=== PATIENT | female | born 1930 | race Caucasian/White ===

== ENCOUNTER 2016-05-25 11:28 | Emergency (ER) | payer MEDICARE, BC, OTHER ==
[2016-05-25 13:35] LABS: Hematocrit 29 % (35-47); Hemoglobin 9.9 g/dl (12.0-16.0); Mean Corpuscular HGB Conc 34 g/dl (31-36); Mean Corpuscular Hemoglobin 32 pg (27-31); Mean Corpuscular Volume 93 fL (80-97); Mean Platelet Volume 8 um3 (7.4-10.4); Red Blood Count 3.15 10^6/ul (4.0-5.4); Red Cell Distribution Width 13 % (10.5-15); White Blood Count 10.5 10^3/ul (3.5-10.8)
[2016-05-25 13:55] LABS: Albumin 3.7 g/dL (3.2-5.2); BUN/Creatinine Ratio 18.4 (8-20); C Reactive Protein 91.74 mg/L (< 5.00); Calcium 9.6 mg/dL (8.6-10.3); EGFR African American 58.4 (>60); EGFR Non-African American 45.4 (>60); Globulin 3.6 g/dL (2-4); Potassium 4.6 mmol/L (3.5-5.0); Total Bilirubin 0.2 mg/dL (0.2-1.0); Total Protein 7.3 g/dL (6.4-8.9)
--- NOTE | 2016-05-25 16:12 | RAD ---
INDICATION: Lower abdominal pain and diarrhea. COMPARISON: November 05, 2013 CT. TECHNIQUE: Multidetector CT images were obtained from the lung bases to the ischial tuberosities. Oral contrast administered. Assessment of the visceral limited without IV contrast. REPORT: Visualized inferior thorax remarkable for mild bibasilar subsegmental atelectasis. Post cholecystectomy. Negative for biliary dilatation. Unremarkable unenhanced liver, pancreas, spleen. Small splenule at the splenic hilum. Unremarkable upper GI and small bowel. The appendix is not visualized. Negative for RIGHT lower quadrant inflammatory change. Enteric contrast extends to the distal sigmoid colon. Mild to moderate colonic diverticulosis primarily at the sigmoid colon without findings of diverticulitis. Negative for ascites, free air, hernias. Normal adrenal glands. Unremarkable RIGHT kidney, ureter, and urinary bladder. Enlarged LEFT kidney with hydroureteronephrosis is traced as far distal as the mid ureter. No obstructing stone evident. 2 cm cystic lesion at the LEFT kidney midpole cortical medullary junction. Mild to moderate LEFT perinephric inflammatory change. Unremarkable uterus and adnexal regions. Enlarged LEFT periaortic lymph nodes at the level of the renal arteries measuring up to 1.4 cm short axis new compared with the prior exam. RIGHT retrocrural lymphadenopathy with dominant 1.7 cm short axis lymph node new compared with the prior exam. Atherosclerotic calcific plaque of the abdominal aorta and iliac arteries without aneurysm. Largely decompressed IVC indicating low volume state. Negative for suspicious osseous lesions. IMPRESSION: 1. Enlarged LEFT kidney with probable hydronephrosis and 2 cm cystic lesion at the mid pole cortical medullary junction. Given associated perienteric inflammatory change correlate with clinical assessment to exclude pyelonephritis. No visualized obstructing stone or focal lesion. The CT appearance is nonspecific and the differential includes obstructive uropathy with pyelonephritis. Pyelonephritis without mechanical obstruction, renal vein thrombosis, and tumor. Consider ultrasound including assessment of the LEFT ureteral jet or contrast-enhanced renal mass protocol CT for further assessment. 2. Retroperitoneal lymphadenopathy including LEFT periaortic at the level of the LEFT renal artery and RIGHT retrocrural. 3. Colonic diverticulosis primarily at the sigmoid colon without findings of diverticulitis.
[2016-05-25] MEDS ORDERED: NS 0.9% 1000 ML* 1,000 ML IV ONE (17:32)
--- NOTE | 2016-05-25 19:56 | RAD ---
Indication: Assess for LEFT hydronephrosis and ureteral jet. Comparison: May 25, 2016 CT. Technique: Bilateral renal ultrasound and limited ultrasound of the urinary bladder to assess for ureteral jets. Report: 9.3 x 3.9 x 4.7 cm RIGHT kidney demonstrates normal cortical echogenicity. No visualized stones, hydronephrosis, or focal lesions. RIGHT ureteral jet documented at the urinary bladder. 10.6 x 5.2 x 5.1 cm mildly enlarged LEFT kidney demonstrates normal cortical echogenicity. Moderate pelvicaliectasis. No visualized stones or focal renal lesions. Negative for perinephric fluid. No LEFT ureteral jet visualized at the urinary bladder over the course of several minutes. IMPRESSION: Mildly enlarged LEFT kidney with moderate pelvicaliectasis and absence of the ureteral jet confirming hydronephrosis.
[2016-05-25 20:17] LABS: Urine Bilirubin Negative (Negative); Urine Glucose Negative (Negative); Urine Nitrite Negative (Negative)
[2016-05-25] MEDS ORDERED: Aspirin TAB* 325 MG PO ONE (21:03)
[2016-05-25] MEDS ORDERED: Ondansetron INJ* 2 MG/ML VIAL IV ONE (21:50)
[2016-05-25] MEDS ORDERED: Morphine INJ* 4 MG/ML 1 ML CARPUJECT IV ONE (21:50)
--- NOTE | 2016-05-25 21:57 | ED ---
Memo Corbin Janilya, scribed for Ramesh Kamara MD on 05/25/16 at 1244 . Abdominal Pain/Female - HPI Summary HPI Summary: An 85 y/o female came in to [facility] presenting w/ a gradual onset of constant LLQ abd pain for about a month. The pain does not radiate. She has CT scan and endoscopy scheduled next week, however, the pain has progressively increased in the past few days, hence her visit to the hospital today. Pt reports she has been losing weight, feeling weaker, having low appetite in addition to nausea, intermittent diarrhea, mild back pain. She also states she has constant achy feeling on the right lower jaw and neck; pt is unsure whether this is due to sleeping in a compromising position. Pt denies diaphoresis, urinary Sx. 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 PSHx gallbladder removal, no appendectomy. - History of Current Complaint Stated Complaint: ABD PAIN/BACK PAIN Hx Obtained From: Patient Onset/Duration: Gradual Onset, Lasting Weeks, Still Present Timing: Constant Severity Initially: Moderate Severity Currently: Moderate Pain Intensity: 6 Pain Scale Used: 0-10 Numeric Location: Discrete At: LLQ Radiates: No Aggravating Factor(s): Nothing Alleviating Factor(s): Nothing Associated Signs and Symptoms: Positive: Back Pain, Decreased Appetite, Diarrhea. Negative: Urinary Symptoms, Nausea, Vomiting Allergies/Adverse Reactions: Allergies Allergy/AdvReac Type Severity Reaction Status Date / Time Iodine Allergy Severe Anaphylatic Verified 05/25/16 11:39 Shock PMH/Surg Hx/FS Hx/Imm Hx Previously Healthy: Yes Endocrine/Hematology History: Reports: Hx Diabetes - TYPE 2, Hx Thyroid Disease Cardiovascular History: Reports: Hx Coronary Artery Disease, Hx Hypercholesterolemia - HDL, Hx Hypertension, Other Cardiovascular Problems/ Disorders - CARDIAC CATH 2010, CAROTID ENDARTERECTOMY Denies: Hx Angina, Hx Myocardial Infarction, Hx Valvular Heart Disease Respiratory History: Denies: Hx Asthma, Hx Chronic Obstructive Pulmonary Disease (COPD) GI History: Denies: Hx Ulcer - Cancer History Hx Chemotherapy: No Hx Radiation Therapy: No - Surgical History Surgery Procedure, Year, and Place: carotid artery cleared; GB removed; 2 cardiac caths Hx Anesthesia Reactions: No Infectious Disease History: No Infectious Disease History: Reports: Hx Shingles - a while ago Denies: Hx Clostridium Difficile, Hx Hepatitis, Hx Human Immunodeficiency Virus (HIV), Hx of Known/Suspected MRSA, Hx Tuberculosis, Hx Known/Suspected VRE , Hx Known/Suspected VRSA, History Other Infectious Disease, Traveled Outside the [place] in Last 30 Days - Family History Known Family History: Positive: Other - No abd issues - Social History Occupation: Retired Alcohol Use: None Substance Use Type: Reports: None Smoking Status (MU): Never Smoked Tobacco Review of Systems Positive: Fatigue. Negative: Fever, Chills Negative: Erythema Negative: Sore Throat Negative: Chest Pain Negative: Shortness Of Breath, Cough Positive: Abdominal Pain, Diarrhea, Nausea. Negative: Vomiting Negative: dysuria, hematuria Positive: Arthralgia - mild back pain, right jaw and neck pain, Myalgia - mild back pain, right jaw and neck pain. Negative: Edema Negative: Rash Neurological: Negative - pt denies dizziness All Other Systems Reviewed And Are Negative: Yes Physical Exam - Summary Physical Exam Summary: Constitutional: Well-developed, Well-nourished, Alert. (-) Distressed Skin: Warm, Dry HENT: Normocephalic; Atraumatic Eyes: Conjunctiva normal Neck: Musculoskeletal ROM normal neck. (-) JVD, (-) Stridor, (-) Tracheal deviation Cardio: Rhythm regular, rate normal, Heart sounds normal; Intact distal pulses; The pedal pulses are 2+ and symmetric. Radial pulses are 2+ and symmetric. (-) Murmur Pulmonary/Chest wall: Effort normal. (-) Respiratory distress, (-) Wheezes, (-) Rales Abd: Soft, (-) Tenderness, (-) Distension, (-) Guarding, (-) Rebound Musculoskeletal: (-) Edema Lymph: (-) Cervical adenopathy Neuro: Alert, Oriented x3 Psych: Mood and affect Normal Triage Information Reviewed: Yes Vital Signs On Initial Exam: Initial Vitals Temp Pulse Resp BP Pulse Ox 97.4 F 68 17 124/54 98 05/25/16 12:21 05/25/16 12:21 05/25/16 12:21 05/25/16 12:21 05/25/16 12:21 Vital Signs Reviewed: Yes Diagnostics - Vital Signs Vital Signs Temp Pulse Resp BP Pulse Ox 05/25/16 12:21 97.4 F 68 17 124/54 98 - Laboratory Lab Results: Lab Results 05/25/16 05/25/16 05/25/16 Range/Units 13:21 13:21 13:21 WBC 10.5 (3.5-10.8) 10^3/ul RBC 3.15 L (4.0-5.4) 10^6/ul Hgb 9.9 L (12.0-16.0) g/dl Hct 29 L (35-47) % MCV 93 (80-97) fL MCH 32 H (27-31) pg MCHC 34 (31-36) g/dl RDW 13 (10.5-15) % Plt Count 447 (150-450) 10^3/ul MPV 8 (7.4-10.4) um3 Neut % (Auto) 71.1 (38-83) % Lymph % (Auto) 19.2 L (25-47) % [place] % (Auto) 7.6 (1-9) % Eos % (Auto) 1.3 (0-6) % Baso % (Auto) 0.8 (0-2) % Absolute Neuts (auto) 7.5 (1.5-7.7) 10^3/ul Absolute Lymphs (auto) 2.0 (1.0-4.8) 10^3/ul Absolute Monos (auto) 0.8 (0-0.8) 10^3/ul Absolute Eos (auto) 0.1 (0-0.6) 10^3/ul Absolute Basos (auto) 0.1 (0-0.2) 10^3/ul Absolute Nucleated RBC 0 10^3/ul Nucleated RBC % 0 Sodium 134 (133-145) mmol/L Potassium 4.6 (3.5-5.0) mmol/L Chloride 101 (101-111) mmol/L Carbon Dioxide 23 (22-32) mmol/L Anion Gap 10 (2-11) mmol/L BUN 21 (6-24) mg/dL Creatinine 1.14 H (0.51-0.95) mg/dL Est GFR ( Amer) 58.4 (>60) Est GFR (Non-Af Amer) 45.4 (>60) BUN/Creatinine Ratio 18.4 (8-20) Glucose 134 H (70-100) mg/dL POC Glucose (mg/dL) (74-106) mg/dL Lactic Acid 1.2 (0.5-2.0) mmol/L Calcium 9.6 (8.6-10.3) mg/dL Total Bilirubin 0.20 (0.2-1.0) mg/dL AST 14 (13-39) U/L ALT 7 (7-52) U/L Alkaline Phosphatase 157 H (34-104) U/L Troponin I 0.00 (<0.04) ng/mL C-Reactive Protein 91.74 H (< 5.00) mg/L Total Protein 7.3 (6.4-8.9) g/dL Albumin 3.7 (3.2-5.2) g/dL Globulin 3.6 (2-4) g/dL Albumin/Globulin Ratio 1.0 (1-3) Lipase 40 (11.0-82.0) U/L Urine Color Urine Appearance Urine pH (5-9) Ur Specific [place] (1.010-1.030) Urine Protein (Negative) Urine Ketones (Negative) Urine Blood (Negative) Urine Nitrate (Negative) Urine Bilirubin (Negative) Urine Urobilinogen (Negative) Ur Leukocyte Esterase (Negative) Urine Glucose (Negative) Urine Ascorbic Acid (Negative) 05/25/16 05/25/16 05/25/16 Range/Units 13:27 18:34 20:00 WBC (3.5-10.8) 10^3/ul RBC (4.0-5.4) 10^6/ul Hgb (12.0-16.0) g/dl Hct (35-47) % MCV (80-97) fL MCH (27-31) pg MCHC (31-36) g/dl RDW (10.5-15) % Plt Count (150-450) 10^3/ul MPV (7.4-10.4) um3 Neut % (Auto) (38-83) % Lymph % (Auto) (25-47) % [place] % (Auto) (1-9) % Eos % (Auto) (0-6) % Baso % (Auto) (0-2) % Absolute Neuts (auto) (1.5-7.7) 10^3/ul Absolute Lymphs (auto) (1.0-4.8) 10^3/ul Absolute Monos (auto) (0-0.8) 10^3/ul Absolute Eos (auto) (0-0.6) 10^3/ul Absolute Basos (auto) (0-0.2) 10^3/ul Absolute Nucleated RBC 10^3/ul Nucleated RBC % Sodium (133-145) mmol/L Potassium (3.5-5.0) mmol/L Chloride (101-111) mmol/L Carbon Dioxide (22-32) mmol/L Anion Gap (2-11) mmol/L BUN (6-24) mg/dL Creatinine (0.51-0.95) mg/dL Est GFR ( Amer) (>60) Est GFR (Non-Af Amer) (>60) BUN/Creatinine Ratio (8-20) Glucose (70-100) mg/dL POC Glucose (mg/dL) 145 H (74-106) mg/dL Lactic Acid 1.5 (0.5-2.0) mmol/L Calcium (8.6-10.3) mg/dL Total Bilirubin (0.2-1.0) mg/dL AST (13-39) U/L ALT (7-52) U/L Alkaline Phosphatase (34-104) U/L Troponin I (<0.04) ng/mL C-Reactive Protein (< 5.00) mg/L Total Protein (6.4-8.9) g/dL Albumin (3.2-5.2) g/dL Globulin (2-4) g/dL Albumin/Globulin Ratio (1-3) Lipase (11.0-82.0) U/L Urine Color Yellow Urine Appearance Clear Urine pH 5.0 (5-9) Ur Specific [place] 1.009 L (1.010-1.030) Urine Protein Negative (Negative) Urine Ketones Negative (Negative) Urine Blood Negative (Negative) Urine Nitrate Negative (Negative) Urine Bilirubin Negative (Negative) Urine Urobilinogen Negative (Negative) Ur Leukocyte Esterase Negative (Negative) Urine Glucose Negative (Negative) Urine Ascorbic Acid * H (Negative) Result Diagrams: 05/25/16 13:21 05/25/16 13:21 Lab Statement: Any lab studies that have been ordered have been reviewed, and results considered in the medical decision making process. - CT abd/pel CT Interpretation: Positive (See Comments) - IMPRESSION: 1. Enlarged LEFT kidney with probable hydronephrosis and 2 cm cystic lesion at the mid pole cortical medullary junction. Given associated perienteric inflammatory change correlate with clinical assessment to exclude pyelonephritis. No visualized obstructing stone or focal lesion. The CT appearance is nonspecific and the differential includes obstructive uropathy with pyelonephritis. Pyelonephritis without mechanical obstruction, renal vein thrombosis, and tumor. Consider ultrasound including assessment of the LEFT ureteral jet or contrast-enhanced renal mass protocol CT for further assessment. 2. Retroperitoneal lymphadenopathy including LEFT periaortic at the level of the LEFT renal artery and RIGHT retrocrural. 3. Colonic diverticulosis primarily at the sigmoid colon without findings of diverticulitis. CT Interpretation Completed By: Radiologist - EKG 1254 Cardiac Rate: NL - 64 bpm EKG Rhythm: Sinus Rhythm EKG Interpretation: No STEMI Re-Evaluation - Re-Evaluation First Eval Re-Evaluation Time: 21:55 - notified of need for transfer, pain 5/5 LLQ Comment: No urology available at [facility], transferred to [facility], direct admission to telemetry, urology eval for obstructive uropathy, also jaw pain in setting of diabetes, rule out TX. EKG, trop neg x 1 Abdominal Pain Fem Course/Dx - Course Course Of Treatment: An 85-year-old female presents to the ED with a CC of abd pain for about a month. Pt is diabetic and anemic. Pt states she has been losing weight and having low appetite. She has endoscopy scheduled for next week. However, the pain has been worsening, hence her visit today. CT abd/pel shows enlarged left kidney. Pt is agreeable with this plan. - Diagnoses Provider Diagnoses: Obstructive uropathy, Jaw pain, Angina at rest - Provider Notifications Discussed Care Of Patient With: Chris (accessibility lift technician) at lab: stool guiaic test is negative. Discharge - Discharge Plan Condition: Good Disposition: TRANS HIGHER LVL OF CARE FAC Referrals: Kevin Burkett MD [Primary Care Provider] - The documentation as recorded by the Memo mcdaniels Janilya accurately reflects the service I personally performed and the decisions made by me, Ramesh Kamara MD.
[2016-05-25 22:05] VITALS: BP 145/61
== END 2016-05-25 22:04 | disposition short-term general hospital (02) ==
LOC: ED 11:28
DX: M54.9 Dorsalgia, unspecified (principal); R19.7 Diarrhea, unspecified; R10.32 Left lower quadrant pain; R53.83 Other fatigue
CPT/HCPCS: 36415; 74176; 76775; 80053; 81003; 82272; 83605; 83690; 84484; 85025; 86140; 87040; 93005; 96374; 96375; 99283; J2270; J2405

== ENCOUNTER 2016-08-28 12:19 | Emergency (ER) | payer MEDICARE, BC ==
[2016-08-28] MEDS ORDERED: Ondansetron ODT TAB* 4 MG PO ONE (13:50)
[2016-08-28 14:09] VITALS: BP 142/69
--- NOTE | 2016-09-10 13:29 | UC ---
anny Corbin Timothy, scribed for Mel Moody MD on 08/28/16 at 1303 . Abdominal Pain Female HPI - History of Current Complaint Stated Complaint: ABDOMINAL COMPLAINT Time Seen by Provider: 08/28/16 13:00 Hx Obtained From: Patient Onset/Duration: Gradual Onset, Lasting Days, Still Present Timing: Intermittent Episodes Lasting: Severity Initially: Moderate Severity Currently: Moderate Pain Intensity: 2 Pain Scale Used: 0-10 Numeric Location: Diffuse Radiates: No Allergies/Adverse Reactions: Allergies Allergy/AdvReac Type Severity Reaction Status Date / Time Iodine Allergy Severe Anaphylatic Verified 05/25/16 11:39 Shock Home Medications: Home Medications Escitalopram (NF) [Lexapro 5 mg (NF)] 5 mg PO DAILY 08/28/16 [History Confirmed 08/28/16] Omeprazole CAP* [Prilosec CAP* 20 MG] 20 mg PO DAILY 08/28/16 [History Confirmed 08/28/16] Ondansetron TAB* [Zofran 4 MG Tab*] 4 mg PO Q8HR PRN 08/28/16 [History Confirmed 08/28/16] PMH/Surg Hx/FS Hx/Imm Hx - Additional Past Medical History Additional PMH: shingles Previously Healthy: No - treated for bladder cancer and recent chemo Endocrine History: Diabetes - II, Thyroid Disease Cardiovascular History: Cardiac Disease, Other - blocked artery, cardiac catheterization x2, HLD, HTN Other Cardiovascular History: Coronary artery disease GI/ History: Other - bladder CA Other GI/ History: bladder cancer Cancer History: Other - Bladder CA Other Cancer History: bladder cancer - Surgical History Surgical History: Yes Surgery Procedure, Year, and Place: carotid artery cleared; GB removed; 2 cardiac caths - Family History Known Family History: Positive: Cardiac Disease, Hypertension, Diabetes, Other - No abd issues - Social History Alcohol Use: None Substance Use Type: None Smoking Status (MU): Never Smoked Tobacco - Immunization History Most Recent Influenza Vaccination: 2011 & REFUSES, STATES WILL GET OUTPATIENT Most Recent Tetanus Shot: UNSURE Most Recent Pneumonia Vaccination: HAS HAD, UNSURE DATE Review of Systems Constitutional: Fatigue Skin: Negative Eyes: Negative ENT: Nasal Discharge Respiratory: Shortness Of Breath Cardiovascular: Negative Gastrointestinal: Abdominal Pain, Other - nausea Genitourinary: Negative Motor: Negative Neurovascular: Negative Musculoskeletal: Negative Neurological: Other - dizziness Psychological: Negative All Other Systems Reviewed And Are Negative: Yes Physical Exam Triage Information Reviewed: Yes Vital Signs: Initial Vital Signs Temp 97.6 F 08/28/16 12:40 Pulse 69 08/28/16 12:40 Resp 22 08/28/16 12:40 BP 128/72 08/28/16 12:40 Pulse Ox 84 08/28/16 12:40 Vital Signs Reviewed: Yes - Additional Comments Constitutional: Pt is awake, A&Ox3, in no acute distress,and cooperative. She is pale. HENT: pale conjunctiva bilaterally. Pinguecula on the left. Throat: pink, nonpurulent. TM's and canals normal. Neck: supple, no JVD in upright position Respiratory: Lungs CTA bilaterally Cardiovascular: RRR, no murmur. There is a port on the right upper chest. Abd: soft, nontender, no masses, no organomegaly, Bowel Sounds: present and normal Musculoskeletal: Full ROM, pale extremities, good tone, power 5/5 in all extremities Neuro: AOx3, cooperative, coherent Skin: pale, good turgor Abd Pain Female Course/Dx - Course Course Of Treatment: Berenice Rush is an 85 yo female presenting to [facility] with 2/ 10 diffuse abd pain, nausea, SOB and fatigue since her last chemotherapy appointment 08/23/16. In the urgent care course she received 2L O2 due to O2 sats 87. Pt was counseled that she should be transferred to a hospital by ambulance due to her low O2 sats and possible anemia. Pt is agreeable to this course of Tx. After clinical examination as well as discussion with Adelita (RN [facility]), she will be transferred to [facility] by ambulance. - Differential Dx/Diagnosis Provider Diagnoses: dyspnea, hypoxia, hyperglycemia - Physician Notification/Consults Discussed Care of Patient With: adelita - nurse [facility] Time Discussed With Above Provider: 13:12 Discharge - Discharge Plan Condition: Stable Disposition: TRANS HIGHER LVL OF CARE FAC Discharge Disposition Comment: transferred to [facility] for risks with low O2 sats and possible anemia Referrals: Kevin Burkett MD [Primary Care Provider] - The documentation as recorded by the anny mcdaniels Timothy accurately reflects the service I personally performed and the decisions made by , Mel Moody MD.
== END 2016-08-28 14:02 | disposition short-term general hospital (02) ==
LOC: UCEAST 12:19
DX: R10.9 Unspecified abdominal pain (principal); R06.00 Dyspnea, unspecified; R09.02 Hypoxemia; E11.65 Type 2 diabetes mellitus with hyperglycemia; E07.9 Disorder of thyroid, unspecified; E78.5 Hyperlipidemia, unspecified; I51.9 Heart disease, unspecified; I10 Essential (primary) hypertension; I25.10 Atherosclerotic heart disease of native coronary artery without angina pectoris
CPT/HCPCS: 99213; A9270-GY; G0463

== ENCOUNTER 2016-08-28 14:18 | Inpatient (IN) | payer MEDICARE, BC ==
[2016-08-28 14:38] LABS: Hematocrit 25 % (35-47); Hemoglobin 7.6 g/dl (12.0-16.0); Mean Corpuscular HGB Conc 31 g/dl (31-36); Mean Corpuscular Hemoglobin 31 pg (27-31); Mean Corpuscular Volume 102 fL (80-97); Mean Platelet Volume 9 um3 (7.4-10.4); Red Blood Count 2.43 10^6/ul (4.0-5.4); Red Cell Distribution Width 27 % (10.5-15); White Blood Count 77.4 10^3/ul (3.5-10.8)
[2016-08-28 14:39] LABS: Comments Flag Yes
[2016-08-28 14:40] LABS: Add Diff/Slide Review? Manual Diff Added
--- NOTE | 2016-08-28 14:56 | RAD ---
INDICATION: Weakness. COMPARISON: Comparison is made with a prior chest x-ray study from December 22, 2012. TECHNIQUE: A portable view of the chest was obtained. FINDINGS: There is a central venous catheter present on the right side. The catheter tip projects over the right atrium. The heart is within normal limits in size. There is mild diffuse prominence of the interstitial markings. There is a moderate size right and a small left pleural effusion. IMPRESSION: BILATERAL PLEURAL EFFUSIONS RIGHT GREATER THAN LEFT.
[2016-08-28 15:03] LABS: Albumin 3.8 g/dL (3.2-5.2); BUN/Creatinine Ratio 19.7 (8-20); C Reactive Protein 57.89 mg/L (< 5.00); Calcium 8.7 mg/dL (8.6-10.3); EGFR African American 45.3 (>60); EGFR Non-African American 35.2 (>60); Globulin 2.9 g/dL (2-4); Total Bilirubin 0.7 mg/dL (0.2-1.0); Total Protein 6.7 g/dL (6.4-8.9)
[2016-08-28 15:09] LABS: Add Path Review? YES; Hypochromasia 2+; Immature Granulocytes 21 % (0-9); Macrocytosis 2+; Metamyelocytes % 1 % (0-2); Myelocytes % 5 % (0-1); Neutrophil % 68 % (38-83); Polychromasia 2+; Troponin I 0.04 ng/mL (<0.04)
[2016-08-28] MEDS ORDERED: Ondansetron INJ* 2 MG/ML VIAL IV ONE (15:58)
[2016-08-28 17:10] LABS: Magnesium 1.7 mg/dL (1.9-2.7); Potassium 5.8 mmol/L (3.5-5.0)
[2016-08-28] MEDS ORDERED: Acetaminophen TAB* 325 MG PO ONE (18:12)
--- NOTE | 2016-08-28 19:37 | RAD ---
INDICATION: Shortness of breath. History of bladder cancer with metastasis to the liver, back, lymph nodes. COMPARISON: May 25, [address] November 05, [address] TECHNIQUE: Multidetector CT images were obtained from the lung apices to the ischial tuberosities without contrast. Assessment of the viscera limited without contrast. CHEST REPORT: Moderate RIGHT and small to moderate LEFT dependent pleural effusions with proportional compressive atelectasis greatest at the lower lobes. Additionally there is consolidation at the RIGHT middle lobe and medial and anterior basal segment of the RIGHT lower lobe with air bronchograms concerning for potential pneumonia. 1.1 x 0.4 cm lesion at the apex of the RIGHT lung is new compared with the prior exam. Tip of RIGHT chest port at level of the RIGHT atrium. Negative for cardiomegaly or pericardial effusion. Coronary artery calcifications. 0.8 cm short axis RIGHT pretracheal lymph node is mildly increased. 1.0 cm short axis precarinal lymph node is unchanged. 1.6 cm short axis RIGHT retrocrural lymph node is grossly unchanged compared with the May 25, 2016 exam. LEFT axillary adenopathy with dominant 1.5 cm short axis node is new. 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 Negative for paravertebral hematoma. Additional dominant osteoblastic metastasis at the manubrium measuring up to 1.4 cm maximum dimension and new compared with the prior exam. CHEST IMPRESSION: 1. New polyostotic bone metastasis compared with the [address] Associated pathologic fracture at T6 without resulting central canal stenosis. 2. Thoracic lymphadenopathy significantly increased over the 2014 exam with new enlarged nodes at the LEFT axilla. No significant change in dominant RIGHT retrocrural lymph node compared with the May 25, [address] 3. RIGHT larger than LEFT bilateral pleural effusions are new compared with the May 25, 2006 CT and may be malignant. 4. 1.1 cm maximum dimension RIGHT upper lobe pulmonary nodule new compared with the 2014 exam. ABDOMEN PELVIS REPORT: Limited assessment of the liver without IV contrast. 1.4 cm hypodense lesion at the dome of the RIGHT anterior hepatic segment is increased from 0.8 cm previously. 1.6 cm hypodense lesion at the RIGHT hepatic lobe inferiorly reference image 63 is increased from 0.9 cm previously. 1.4 cm hypodense lesion at the subcapsular RIGHT posterior hepatic segment reference image 63 is increased from 1.0 cm previously. Post cholecystectomy. Negative for biliary dilatation. Unremarkable pancreas. Upper normal spleen size. Splenule approximating the inferior medial margin of the spleen. Negative for CT abnormality of the upper GI or small bowel. The appendix is not visualized. Severe colonic diverticulosis without findings of diverticulitis. Small pelvic ascites. Negative for free air or hernias. Normal adrenal glands. 1.8 cm cyst at the midpole of the LEFT kidney. Negative for hydronephrosis. Negative for ureteral dilatation. Largely decompressed urinary bladder without gross abnormality. Unremarkable anteverted uterus and adnexal regions. Infrarenal LEFT periaortic lymphadenopathy measuring up to 2.0 x 1.7 cm without gross change. Negative for aortoiliac aneurysm. Extensive arterial calcific plaque. Polyostotic small osteoblastic bone metastasis with brewery representative 0.8 cm lesion at the L5 vertebral body reference the lateral view with interval increase in size from 0.4 cm previously. Negative for pathologic compression fractures. ABDOMEN PELVIS IMPRESSION: 1. While assessment is limited without IV contrast there is suggestion of significant progression of hepatic metastasis compared with the May 25, 2016 CT. 2. No significant change in retroperitoneal lymphadenopathy. 3. Progression of polyostotic small osteoblastic bone metastasis.
[2016-08-28] MEDS ORDERED: Dextrose 50% Syringe 50 ML* 25 GM/50 ML SYRINGE IV PUSH PRN (20:03)
[2016-08-28] MEDS ORDERED: Morphine INJ* 2 MG/ML 1 ML SYRINGE IV ONE (21:48)
--- NOTE | 2016-08-28 22:21 | ED ---
Dipesh Corbin Alfonso, scribed for Boo Malin MD on 08/28/16 at 1514 . Complex/Multi-Sys Presentation - HPI Summary HPI Summary: This patient is an 85 year old female BIB[facility] c/o SOB since earlier today. She reports generalized weakness, loss of appetite, nausea, and rhinorrhea over the last few days. She has had insomnia and her sleep pattern has changed. She denies diarrhea. Symptoms aggravated and alleviated by nothing. Her last normal BM was this morning. She has stage 4 bladder cancer that is being managed at [facility]. - History Of Current Complaint Time Seen by Provider: 08/28/16 14:35 Hx Obtained From: Patient, Family/Sourcing Intern - Son Onset/Duration: Sudden Onset, Lasting Hours - Earlier today, Still Present Timing: Constant Severity Currently: Mild Severity Initially: Mild Aggravating Factor(s): Nothing Alleviating Factor(s): Nothing Associated Signs And Symptoms: Positive: Weakness - Generalized, SOB - Since earlier today, Nausea, Other - Positive loss of appetite, rhinorrhea, and insomnia. Negative: Diarrhea - Allergies/Home Medications Allergies/Adverse Reactions: Allergies Allergy/AdvReac Type Severity Reaction Status Date / Time Iodine Allergy Severe Anaphylatic Verified 05/25/16 11:39 Shock PMH/Surg Hx/FS Hx/Imm Hx Endocrine/Hematology History: Reports: Hx Diabetes - TYPE 2, Hx Thyroid Disease Cardiovascular History: Reports: Hx Coronary Artery Disease, Hx Hypercholesterolemia - HDL, Hx Hypertension, Other Cardiovascular Problems/ Disorders - CARDIAC CATH 2010, CAROTID ENDARTERECTOMY Denies: Hx Angina, Hx Myocardial Infarction, Hx Valvular Heart Disease Respiratory History: Denies: Hx Asthma, Hx Chronic Obstructive Pulmonary Disease (COPD) GI History: Denies: Hx Ulcer History: Denies: Hx Renal Disease - Cancer History Cancer Type, Location and Year: 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, back, lymph nodes Hx Chemotherapy: No Hx Radiation Therapy: No - Surgical History Surgery Procedure, Year, and Place: carotid artery cleared; GB removed; 2 cardiac caths, mediaport rt chest Hx Anesthesia Reactions: No Infectious Disease History: Reports: Hx Shingles - a while ago Denies: Hx Clostridium Difficile, Hx Hepatitis, Hx Human Immunodeficiency Virus (HIV), Hx of Known/Suspected MRSA, Hx Tuberculosis, Hx Known/Suspected VRE , Hx Known/Suspected VRSA, History Other Infectious Disease, Traveled Outside the [place] in Last 30 Days - Family History Known Family History: Positive: Other - No abd issues - Social History Alcohol Use: None Substance Use Type: Reports: None Smoking Status (MU): Never Smoked Tobacco Review of Systems Positive: Other - Rhinorrhea since a few days ago Positive: Shortness Of Breath - Since earlier today Positive: Nausea - Since a few days ago, Other - Positive loss of appetite since a few days ago. Negative: Diarrhea Neurological: Other - Insomnia Positive: Weakness - Generalized since a few days ago All Other Systems Reviewed And Are Negative: Yes Physical Exam - Summary Physical Exam Summary: Gen: well-appearing, no pain distress Skin: Pale Head: normal Eyes: EOMI, GADIEL ENT: normal Neck: supple, nontender Resp: CTA, breath sounds present Cardio: RRR Abd: soft, nontender Bowel: present Musc: normal, strength/ROM intact Neuro: normal, sensory/motor intact, A&O x3 Psych: affect/mood appropriate Triage Information Reviewed: Yes Vital Signs On Initial Exam: Initial Vitals Temp Pulse Resp BP Pulse Ox 98.5 F 70 26 160/57 92 08/28/16 16:03 08/28/16 16:03 08/28/16 16:03 08/28/16 16:03 08/28/16 16:03 Vital Signs Reviewed: Yes Diagnostics - Vital Signs Vital Signs Temp Pulse Resp BP Pulse Ox 08/28/16 20:30 98.4 F 74 20 154/73 92 08/28/16 20:28 72 28 154/73 90 08/28/16 20:00 69 27 91 08/28/16 19:21 70 25 90 08/28/16 18:30 67 22 130/51 89 08/28/16 18:20 68 24 90 08/28/16 18:03 98.9 F 139/54 90 08/28/16 16:03 98.5 F 70 26 160/57 92 - Laboratory Lab Results: Lab Results 08/28/16 08/28/16 08/28/16 Range/Units 12:45 12:45 12:45 WBC 77.4 H (3.5-10.8) 10^3/ul RBC 2.43 L (4.0-5.4) 10^6/ul Hgb 7.6 L (12.0-16.0) g/dl Hct 25 L (35-47) % MCV 102 H (80-97) fL MCH 31 (27-31) pg MCHC 31 (31-36) g/dl RDW 27 H (10.5-15) % Plt Count 204 (150-450) 10^3/ul MPV 9 (7.4-10.4) um3 Absolute Neuts (auto) 72.1 H (1.5-7.7) 10^3/ul Absolute Lymphs (auto) 2.2 (1.0-4.8) 10^3/ul Absolute Monos (auto) 2.8 H (0-0.8) 10^3/ul Absolute Eos (auto) 0 (0-0.6) 10^3/ul Absolute Basos (auto) 0.2 (0-0.2) 10^3/ul Absolute Nucleated RBC 0.05 10^3/ul Neutrophils % Pending Normal RBC Morphology Pending INR (Anticoag Therapy) 1.05 (0.89-1.11) APTT 25.7 L (26.0-36.3) seconds Sodium 132 L (133-145) mmol/L Potassium Pending Chloride 103 (101-111) mmol/L Carbon Dioxide 21 L (22-32) mmol/L Anion Gap Pending BUN 28 H (6-24) mg/dL Creatinine 1.42 H (0.51-0.95) mg/dL Est GFR ( Amer) 45.3 (>60) Est GFR (Non-Af Amer) 35.2 (>60) BUN/Creatinine Ratio 19.7 (8-20) Glucose 265 H (70-100) mg/dL Calcium 8.7 (8.6-10.3) mg/dL Magnesium Pending Total Bilirubin 0.70 (0.2-1.0) mg/dL AST Pending ALT 36 (7-52) U/L Alkaline Phosphatase 296 H (34-104) U/L Total Creatine Kinase 54 (10-223) U/L CK-MB (CK-2) 5.3 (0.6-6.3) ng/mL Troponin I Pending C-Reactive Protein 57.89 H (< 5.00) mg/L B-Natriuretic Peptide ( - 100) pg/mL Total Protein 6.7 (6.4-8.9) g/dL Albumin 3.8 (3.2-5.2) g/dL Globulin 2.9 (2-4) g/dL Albumin/Globulin Ratio 1.3 (1-3) Lipase 40 (11.0-82.0) U/L TSH 17.00 H (0.34-5.60) mcIU/mL 08/28/16 Range/Units 12:45 WBC (3.5-10.8) 10^3/ul RBC (4.0-5.4) 10^6/ul Hgb (12.0-16.0) g/dl Hct (35-47) % MCV (80-97) fL MCH (27-31) pg MCHC (31-36) g/dl RDW (10.5-15) % Plt Count (150-450) 10^3/ul MPV (7.4-10.4) um3 Absolute Neuts (auto) (1.5-7.7) 10^3/ul Absolute Lymphs (auto) (1.0-4.8) 10^3/ul Absolute Monos (auto) (0-0.8) 10^3/ul Absolute Eos (auto) (0-0.6) 10^3/ul Absolute Basos (auto) (0-0.2) 10^3/ul Absolute Nucleated RBC 10^3/ul Neutrophils % Normal RBC Morphology INR (Anticoag Therapy) (0.89-1.11) APTT (26.0-36.3) seconds Sodium (133-145) mmol/L Potassium Chloride (101-111) mmol/L Carbon Dioxide (22-32) mmol/L Anion Gap BUN (6-24) mg/dL Creatinine (0.51-0.95) mg/dL Est GFR ( Amer) (>60) Est GFR (Non-Af Amer) (>60) BUN/Creatinine Ratio (8-20) Glucose (70-100) mg/dL Calcium (8.6-10.3) mg/dL Magnesium Total Bilirubin (0.2-1.0) mg/dL AST ALT (7-52) U/L Alkaline Phosphatase (34-104) U/L Total Creatine Kinase (10-223) U/L CK-MB (CK-2) (0.6-6.3) ng/mL Troponin I C-Reactive Protein (< 5.00) mg/L B-Natriuretic Peptide 1137 H ( - 100) pg/mL Total Protein (6.4-8.9) g/dL Albumin (3.2-5.2) g/dL Globulin (2-4) g/dL Albumin/Globulin Ratio (1-3) Lipase (11.0-82.0) U/L TSH (0.34-5.60) mcIU/mL Result Diagrams: 08/28/16 12:45 08/28/16 12:45 Lab Statement: Any lab studies that have been ordered have been reviewed, and results considered in the medical decision making process. - Radiology CXR Xray Interpretation: Positive (See Comments) - BILATERAL PLEURAL EFFUSIONS RIGHT GREATER THAN LEFT. Radiology Interpretation Completed By: Radiologist - EKG 1602 EKG Rhythm: Sinus Rhythm - BPM 71 Ectopy: None EKG Interpretation: Flipped T waves in Lead III, AVF, , and V2 Re-Evaluation - Re-Evaluation First Eval Re-Evaluation Time: 18:08 Comment: Discussed admission and the patient understands and agrees. Complex Multi-Symp Course/Dx Course Of Treatment: NO CRITICAL CARE TIME. DISCUSSED WITH DR JAIME PENNINGTON, [facility] . PATIENT RECENTLY HAD NEULASTA. RECOMMENDED ADMIT AND TO LOOK FOR INFECTION. ADMIT HOSPITALIST STABLE. - Diagnoses Provider Diagnoses: Weakness, Dyspnea, Pleural effusion, Elevated WBC count - Physician Notifications Discussed Care Of Patient With: Jaime Pennington MD Time Discussed With Above Provider: 16:24 Instructed by Provider To: Other - Consulted Jaime Pennington (Patient's oncologist at [facility]). Consulted with Dr. You (Hospitalist) at 1624 who recommended to r/o acute crisis before admission. Consulted with Dr. Matthew Thomason (hematological oncologist) at 1721 who stated this is not an acute blast crisis. Consulted with Dr. You again at 1801 who agrees to admit. Discharge - Discharge Plan Condition: Fair Disposition: ADMITTED TO [facility] The documentation as recorded by the Dipesh mcdaniels Alfonso accurately reflects the service I personally performed and the decisions made by me, Boo Malin MD.
[2016-08-28] MEDS: Cefepime(*) 1 GM in NS 0.9% 50 ML* 50 ML IVPB SCH (22:29)
--- NOTE | 2016-08-28 22:48 | HP ---
CC: Dr. Kevin Burkett * HISTORY AND PHYSICAL: DATE OF ADMISSION: 08/28/16 PRIMARY CARE PHYSICIAN: Dr. Kevin Burkett. CHIEF COMPLAINT: Shortness of breath. HISTORY OF PRESENT ILLNESS: The patient is an 85-year-old woman who said she was actually scheduled for a CAT scan today in the [place] to make it more convenient for her at [facility], but she felt so "rotten," she could not actually have it done. She said she has been having trouble breathing and then she has been sick to her stomach as of late. She took her nausea medications, but it did not help. This has been going on for 2 days. This shortness of breath was mostly breathing heavy while lying down and exerting herself. She denies any chest pain, but has a sensation that something is wrong. She denies fevers or chills. Her nose was running, but she has no cough. She just finished her fourth cycle of chemotherapy. In the ED, the patient was evaluated and did have 2 moderate pleural effusions. 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 She also recently received Neulasta. Hypertension; hypothyroidism; hyperlipidemia; peripheral vascular disease, status carotid endarterectomy; cardiac catheterization in 2010; cholecystectomy; rosacea; type 2 diabetes. CURRENT MEDICATIONS: Are as follows: 1. Atenolol 50 mg at bedtime, 25 mg in the morning. 2. Aspirin 81 mg daily. 3. Tylenol 650 mg every 4 hours as needed. 4. Glipizide 5 mg daily. 5. Lexapro 5 mg daily. 6. Levothyroxine 100 mcg daily. 7. Imdur 30 mg in the morning. 8. Metformin 500 mg twice daily. 9. Xanax 0.125 to 0.25 mg 3 times a day as needed. 10. Foltanx 1 tablet daily. 11. Omeprazole 20 mg daily. 12. Zofran 4 mg every 8 hours as needed. ALLERGIES: She has an allergy to IODINE, which causes rash and edema. FAMILY HISTORY: Positive for father, who of an unknown cancer. SOCIAL HISTORY: No tobacco. Occasional alcohol and recreational drug use. She is a retired administrative assistance. She is with 2 children. Her son, Manuelito Rush, is her healthcare proxy. REVIEW OF SYSTEMS: A 14-point review of systems was completed with the patient. All pertinent positives and negatives are in the history of present illness; otherwise, it is negative. PHYSICAL EXAMINATION GENERAL: Very pleasant woman, lying in bed, in no acute distress. VITAL SIGNS: Blood pressure 130/51, pulse ox 94% on 3 L, respiratory rate 22 breaths per minute, heart rate 67 beats per minute, temperature 98.9 degrees. HEENT: Normocephalic, atraumatic. Pupils equal, round and reactive. Moist mucous membranes. NECK: Supple. No JVD, bruits, palpable thyroid or lymphadenopathy. CHEST: Diminished breath sounds bilaterally one third of the way up. CARDIOVASCULAR: S1, S2 appreciated. ABDOMEN: Positive bowel sounds in all 4 quadrants. Soft, nontender, nondistended. EXTREMITIES: No cyanosis or clubbing. Minimal edema. +2 peripheral pulses bilaterally. NEUROLOGIC: Alert and oriented x3. Moves all extremities. SKIN: Pale, but no other abnormalities. DIAGNOSTIC STUDIES/LABORATORY DATA: White count 77.4, hemoglobin 7.6, hematocrit 25, platelets 204. Sodium 132, potassium 5.8, chloride 103, CO2 21, BUN 28, creatinine 1.42, glucose 265. Troponin 0.40. BNP 1137. TSH is 17. INR is 1.05. Chest x-ray was interpreted by Radiology as bilateral pleural effusions, right greater than left. CT of the abdomen and pelvis was interpreted by Radiology as while assessment is limited without IV contrast, there is suggestion of significant progression of hepatic metastasis compared to 05/25/16 CT. No significant change in retroperitoneal lymphadenopathy, progression of polycystic small osteoblastic bone metastases. EKG shows normal sinus rhythm at 71 beats a minute. Normal axis, low voltage. No acute ST-T wave changes. ASSESSMENT AND PLAN: 1. Shortness of breath. This could be due to pleural effusions. There certainly could be a pneumonia that we are not seeing, but it is not detailed anywhere. Her white count being 77,000 is concerning that it would not usually by infection or by Neulasta. She does not seem to be having a blast crisis and no evidence of blast in the blood count. For now, I will put her on cefepime and Zithromax. I will check a sputum for C and S, serum for legionella and pneumococcal antigen and we should consider doing a tap of pleural effusion for both cell count, culture and sensitivity and cytology. Her son notes she has been extremely anxious as of late and does not know if this is really the reason she is more short of breath. 2. Nausea. We will give IV Zofran, hold off on fluids with her effusions. Again, this could be anxiety. Currently, she feels fine. 3. Diabetes mellitus. Hold oral hypoglycemics. Placed on fingersticks sliding scale insulin. 4. Hypothyroidism. TSH is somewhat high. It is unclear if her medications have been recently adjusted. We will hold off on at this time. 5. Anemia. We will check in the a.m. The patient has gotten transfusions in the past and may need another transfusion. 6. DVT prophylaxis. SCDs and heparin. 7. FEN. Consistent carb diet. 8. The patient is a full code. TIME SPENT: Over 80 minutes were spent on this H and P, and more than 45 minutes of which was spent in direct [id number] contact with the patient in evaluation, physical exam and counseling and coordination of care. [id number]/CPS #: [id number] MTDD
[2016-08-28] MEDS: Heparin VIAL(*) 5000 UNITS/ML VIAL (FIVE THOUSAND) SUBCUT SCH (22:52)
[2016-08-28] MEDS: Insulin LISPRO* 1 UNITS UNIT SUBCUT SCH (22:53)
[2016-08-28] MEDS: Azithromycin IV(*) 500 MG in NS 0.9% 250 ML* 250 ML IVPB SCH (22:54)
[2016-08-28] MEDS: Atenolol TAB* 50 MG PO SCH (22:54)
[2016-08-28] MEDS: Ondansetron INJ* 2 MG/ML VIAL IV PRN (22:58)
[2016-08-29] MEDS: LORazepam INJ* 2 MG/ML 1 ML VIAL IV PUSH PRN (01:13)
[2016-08-29 01:35] LABS: Troponin I 0.07 ng/mL (<0.04)
[2016-08-29] MEDS: Heparin VIAL(*) 5000 UNITS/ML VIAL (FIVE THOUSAND) SUBCUT SCH ×2 (05:50→13:10)
[2016-08-29] MEDS: Levothyroxine TAB* 100 MCG TAB PO SCH (05:50)
[2016-08-29 08:57] LABS: Hematocrit 24 % (35-47); Hemoglobin 7.3 g/dl (12.0-16.0); Mean Corpuscular HGB Conc 30 g/dl (31-36); Mean Corpuscular Hemoglobin 31 pg (27-31); Mean Corpuscular Volume 104 fL (80-97); Mean Platelet Volume 9 um3 (7.4-10.4); Red Blood Count 2.35 10^6/ul (4.0-5.4); Red Cell Distribution Width 27 % (10.5-15); White Blood Count 84.3 10^3/ul (3.5-10.8)
[2016-08-29] MEDS ORDERED: Aspirin Low Dose CHEW TAB* 81 MG PO SCH (09:00)
[2016-08-29] MEDS ORDERED: Albuterol/Ipratropium NEB.SOL* Albuterol 2.5 MG/Ipratropium 0.5 MG 3 ML INH PRN (09:05)
[2016-08-29 09:07] LABS: Add Diff/Slide Review? Manual Diff Added; Comments Flag Yes
[2016-08-29] MEDS: Ondansetron INJ* 2 MG/ML VIAL IV PRN ×3 (09:23→21:38)
[2016-08-29] MEDS: Isosorbide Mononitrate ER TAB* 30 MG PO SCH (09:31)
[2016-08-29] MEDS: Omeprazole CAP* 20 MG PO SCH (09:31)
[2016-08-29] MEDS: Atenolol TAB* 25 MG PO SCH (09:31)
[2016-08-29] MEDS: Citalopram TAB* 10 MG PO SCH (09:31)
[2016-08-29] MEDS: Insulin LISPRO* 1 UNITS UNIT SUBCUT SCH ×4 (09:36→21:29)
[2016-08-29 09:42] LABS: Hypochromasia 2+; Immature Granulocytes 23 % (0-9); Macrocytosis 1+; Metamyelocytes % 2 % (0-2); Myelocytes % 2 % (0-1); Neutrophil % 65 % (38-83); Reactive Lymph % 1 % (0-6)
[2016-08-29 09:43] LABS: Add Path Review? YES; Polychromasia 2+
[2016-08-29] MEDS: Cefepime(*) 1 GM in NS 0.9% 50 ML* 50 ML IVPB SCH ×2 (09:45→21:23)
[2016-08-29] MEDS: VITAMIN B6 V PO SCH (09:46)
[2016-08-29] MEDS: [UNRECOGNIZED DRUG - OTHER] PO SCH (09:46)
[2016-08-29] MEDS: METHYLFOLATE PO SCH (09:46)
[2016-08-29 11:38] LABS: BUN/Creatinine Ratio 18.6 (8-20); Calcium 8.6 mg/dL (8.6-10.3); EGFR African American 40.7 (>60); EGFR Non-African American 31.6 (>60); Potassium 6.8 mmol/L (3.5-5.0)
[2016-08-29] MEDS ORDERED: Calcium Gluconate INJ* 1 GM in NS 0.9% 50 ML* 50 ML IVPB ONE (11:53)
[2016-08-29] MEDS ORDERED: Dextrose 50% Syringe 50 ML* 25 GM/50 ML SYRINGE IV PUSH PRN (11:54)
[2016-08-29] MEDS ORDERED: Sodium Polystyrene ORAL.SOL* 15 GM/60 ML BTL PO ONE (11:55)
[2016-08-29 11:57] LABS: Erythrocyte Sed Rate 63 mm/Hr (0-40)
[2016-08-29] MEDS ORDERED: Dextrose 50% Syringe 50 ML* 25 GM/50 ML SYRINGE IV PUSH ONE (12:00)
[2016-08-29] MEDS ORDERED: Insulin REGULAR(*) 1 UNITS UNIT IV PUSH ONE (12:05)
[2016-08-29 12:30] LABS: FIO2 5
[2016-08-29 12:38] LABS: PCO2 Arterial 42 mmHg (35-45)
[2016-08-29 12:52] LABS: BUN/Creatinine Ratio 20.1 (8-20); Calcium 8.9 mg/dL (8.6-10.3); EGFR African American 41.3 (>60); EGFR Non-African American 32.1 (>60)
[2016-08-29 12:54] LABS: Potassium 6.3 mmol/L (3.5-5.0)
[2016-08-29 13:04] LABS: BUN/Creatinine Ratio 21.1 (8-20); Calcium 8.5 mg/dL (8.6-10.3); EGFR African American 43.6 (>60); EGFR Non-African American 33.9 (>60); Potassium 5.5 mmol/L (3.5-5.0)
[2016-08-29 13:23] LABS: Troponin I 0.91 ng/mL (<0.04)
[2016-08-29] MEDS ORDERED: Aspirin TAB* 325 MG PO ONE (14:07)
[2016-08-29 16:34] LABS: BUN/Creatinine Ratio 20.8 (8-20); Calcium 8.7 mg/dL (8.6-10.3); EGFR African American 44.6 (>60); EGFR Non-African American 34.7 (>60); Potassium 5.3 mmol/L (3.5-5.0)
--- NOTE | 2016-08-29 17:51 | PN ---
Subjective Date of Service: 08/29/16 Interval History: Reports intermittent SOB, had "bad episode" overnight denies cough, nausea, had diarrhea that resolved Objective Active Medications: Acetaminophen (Tylenol Tab*) 650 mg PO Q4H PRN PRN Reason: PAIN Albuterol/Ipratropium (Duoneb (Albuterol 2.5 Mg/Ipratropium 0.5 Mg)) 1 neb INH Q4H PRN PRN Reason: SOB/WHEEZING Alprazolam (Xanax Tab*) 0.25 mg PO TID PRN PRN Reason: ANXIETY Aspirin (Aspirin Low Dose Tab*) 81 mg PO DAILY [facility] Last Admin: 08/29/16 09:31 Dose: 81 mg Atenolol (Tenormin Tab*) 25 mg PO QAM [facility] Last Admin: 08/29/16 09:31 Dose: 25 mg Atenolol (Tenormin Tab*) 50 mg PO BEDTIME [facility] Last Admin: 08/28/16 22:54 Dose: 50 mg Citalopram Hydrobromide (Celexa Tab*) 10 mg PO DAILY [facility] PRN Reason: Protocol Last Admin: 08/29/16 09:31 Dose: 10 mg Dextrose (D50w Syringe 50 Ml*) 12.5 gm IV PUSH .FOR FS < 60 - SS PRN PRN Reason: FS < 60 Cefepime HCl 1 gm/ Sodium (Chloride) 50 mls @ 100 mls/hr IVPB Q12H [facility] Last Admin: 08/29/16 09:45 Dose: 100 mls/hr Azithromycin 500 mg/ Sodium (Chloride) 250 mls @ 250 mls/hr IVPB Q24H [facility] Last Admin: 08/28/16 22:54 Dose: 250 mls/hr Insulin Human Lispro (Humalog*) 0 units SUBCUT ACHS JEREMI PRN Reason: Protocol Last Admin: 08/29/16 17:36 Dose: 1 units Isosorbide Mononitrate (Imdur Er Tab*) 30 mg PO QAM [facility] Last Admin: 08/29/16 09:31 Dose: 30 mg Levothyroxine Sodium (Synthroid Tab*) 100 mcg PO 0600 [facility] Last Admin: 08/29/16 05:50 Dose: 100 mcg Lorazepam (Ativan Inj*) 0.5 mg IV PUSH Q4H PRN PRN Reason: ANXIETY Last Admin: 08/29/16 01:13 Dose: 0.5 mg Non-Formulary Medication (L-Methylfolate W/ Vitamin B6-V [Foltanx 3-35-2 Mg]) 1 tab PO DAILY [facility] Last Admin: 08/29/16 09:46 Dose: Not Given Omeprazole (Prilosec Cap*) 20 mg PO DAILY [facility] Last Admin: 08/29/16 09:31 Dose: 20 mg Ondansetron HCl (Zofran Inj*) 4 mg IV Q4H PRN PRN Reason: NAUSEA Last Admin: 08/29/16 15:59 Dose: 4 mg Vital Signs 08/28/16 08/28/16 08/28/16 21:00 21:20 21:54 Temperature Pulse Rate 81 Respiratory 26 26 20 Rate Blood Pressure 172/86 (mmHg) O2 Sat by Pulse 84 Oximetry 08/28/16 08/28/16 08/28/16 22:15 22:54 23:54 Temperature 98.2 F Pulse Rate 85 Respiratory 19 18 20 Rate Blood Pressure 147/87 (mmHg) O2 Sat by Pulse 95 Oximetry 08/29/16 08/29/16 08/29/16 00:23 01:13 03:13 Temperature 97.4 F Pulse Rate 66 Respiratory 15 22 18 Rate Blood Pressure 110/58 (mmHg) O2 Sat by Pulse 85 Oximetry 08/29/16 08/29/16 08/29/16 03:37 04:13 05:13 Temperature Pulse Rate 61 Respiratory 15 18 18 Rate Blood Pressure 143/65 (mmHg) O2 Sat by Pulse 98 Oximetry 08/29/16 08/29/16 07:28 12:36 Temperature Pulse Rate 61 63 Respiratory 16 16 Rate Blood Pressure 124/55 (mmHg) O2 Sat by Pulse 99 95 Oximetry Oxygen Devices in Use Now: Nasal Cannula Appearance: sitting up in bed, eyes closed, NAD Eyes: No Scleral Icterus, PERRLA Ears/Nose/Mouth/Throat: Clear Oropharnyx, Mucous Membranes Moist Neck: NL Appearance and Movements; NL JVP, Trachea Midline Respiratory: Symmetrical Chest Expansion and Respiratory Effort, - - decreased righ base 3/4 up, dull to percussion Cardiovascular: RRR Abdominal: NL Sounds; No Tenderness; No Distention, No Hepatosplenomegaly Lymphatic: No Cervical Adenopathy Neurological: Alert and Oriented x 3 Result Diagrams: 08/29/16 08:20 08/29/16 16:00 Additional Lab and Data: Lab Results 08/28/16 08/28/16 08/28/16 Range/Units 12:45 12:45 12:45 WBC 77.4 H (3.5-10.8) 10^3/ul RBC 2.43 L (4.0-5.4) 10^6/ul Hgb 7.6 L (12.0-16.0) g/dl Hct 25 L (35-47) % MCV 102 H (80-97) fL MCH 31 (27-31) pg MCHC 31 (31-36) g/dl RDW 27 H (10.5-15) % Plt Count 204 (150-450) 10^3/ul MPV 9 (7.4-10.4) um3 Absolute Neuts (auto) 72.1 H (1.5-7.7) 10^3/ul Absolute Lymphs (auto) 2.2 (1.0-4.8) 10^3/ul Absolute Monos (auto) 2.8 H (0-0.8) 10^3/ul Absolute Eos (auto) 0 (0-0.6) 10^3/ul Absolute Basos (auto) 0.2 (0-0.2) 10^3/ul Absolute Nucleated RBC 0.05 10^3/ul Neutrophils % Pending Normal RBC Morphology Pending INR (Anticoag Therapy) 1.05 (0.89-1.11) APTT 25.7 L (26.0-36.3) seconds Sodium 132 L (133-145) mmol/L Potassium Pending Chloride 103 (101-111) mmol/L Carbon Dioxide 21 L (22-32) mmol/L Anion Gap Pending BUN 28 H (6-24) mg/dL Creatinine 1.42 H (0.51-0.95) mg/dL Est GFR ( Amer) 45.3 (>60) Est GFR (Non-Af Amer) 35.2 (>60) BUN/Creatinine Ratio 19.7 (8-20) Glucose 265 H (70-100) mg/dL Calcium 8.7 (8.6-10.3) mg/dL Magnesium Pending Total Bilirubin 0.70 (0.2-1.0) mg/dL AST Pending ALT 36 (7-52) U/L Alkaline Phosphatase 296 H (34-104) U/L Total Creatine Kinase 54 (10-223) U/L CK-MB (CK-2) 5.3 (0.6-6.3) ng/mL Troponin I Pending C-Reactive Protein 57.89 H (< 5.00) mg/L B-Natriuretic Peptide ( - 100) pg/mL Total Protein 6.7 (6.4-8.9) g/dL Albumin 3.8 (3.2-5.2) g/dL Globulin 2.9 (2-4) g/dL Albumin/Globulin Ratio 1.3 (1-3) Lipase 40 (11.0-82.0) U/L TSH 17.00 H (0.34-5.60) mcIU/mL 08/28/16 Range/Units 12:45 WBC (3.5-10.8) 10^3/ul RBC (4.0-5.4) 10^6/ul Hgb (12.0-16.0) g/dl Hct (35-47) % MCV (80-97) fL MCH (27-31) pg MCHC (31-36) g/dl RDW (10.5-15) % Plt Count (150-450) 10^3/ul MPV (7.4-10.4) um3 Absolute Neuts (auto) (1.5-7.7) 10^3/ul Absolute Lymphs (auto) (1.0-4.8) 10^3/ul Absolute Monos (auto) (0-0.8) 10^3/ul Absolute Eos (auto) (0-0.6) 10^3/ul Absolute Basos (auto) (0-0.2) 10^3/ul Absolute Nucleated RBC 10^3/ul Neutrophils % Normal RBC Morphology INR (Anticoag Therapy) (0.89-1.11) APTT (26.0-36.3) seconds Sodium (133-145) mmol/L Potassium Chloride (101-111) mmol/L Carbon Dioxide (22-32) mmol/L Anion Gap BUN (6-24) mg/dL Creatinine (0.51-0.95) mg/dL Est GFR ( Amer) (>60) Est GFR (Non-Af Amer) (>60) BUN/Creatinine Ratio (8-20) Glucose (70-100) mg/dL Calcium (8.6-10.3) mg/dL Magnesium Total Bilirubin (0.2-1.0) mg/dL AST ALT (7-52) U/L Alkaline Phosphatase (34-104) U/L Total Creatine Kinase (10-223) U/L CK-MB (CK-2) (0.6-6.3) ng/mL Troponin I C-Reactive Protein (< 5.00) mg/L B-Natriuretic Peptide 1137 H ( - 100) pg/mL Total Protein (6.4-8.9) g/dL Albumin (3.2-5.2) g/dL Globulin (2-4) g/dL Albumin/Globulin Ratio (1-3) Lipase (11.0-82.0) U/L TSH (0.34-5.60) mcIU/mL Assess/Plan/Problems-Billing Assessment: 85 yo F h/o RCC s/o chemo 1 week prior, neulasta p/w fatigue and SOB found with large pleural effusion - Patient Problems (1) Renal cell carcinoma Comment: last therapy 1 week prior oncologist is Jaime Pennington in [place] records pending CT with advancing dz (2) Leukocytosis Comment: no clear source infectio nalthough effusion is possible Possible in setting of neulasta tx cefepime and azithro for possible PNA until thoracentesis tomorrow (3) Pleural effusion Comment: request thoracentesis tomorrow (4) DVT prophylaxis Comment: HSQ, hold midnight for procedure tomorrow
[2016-08-29] MEDS: Atenolol TAB* 50 MG PO SCH (21:22)
[2016-08-29] MEDS: Acetaminophen TAB* 325 MG PO PRN (21:37)
[2016-08-29] MEDS: ALPRAZolam TAB* 0.25 MG PO PRN (21:37)
[2016-08-29] MEDS: Azithromycin IV(*) 500 MG in NS 0.9% 250 ML* 250 ML IVPB SCH (22:53)
[2016-08-30] MEDS: LORazepam INJ* 2 MG/ML 1 ML VIAL IV PUSH PRN (00:15)
[2016-08-30] MEDS: Levothyroxine TAB* 100 MCG TAB PO SCH (05:22)
[2016-08-30 05:58] LABS: Hematocrit 22 % (35-47); Hemoglobin 6.6 g/dl (12.0-16.0); Mean Corpuscular HGB Conc 30 g/dl (31-36); Mean Corpuscular Hemoglobin 31 pg (27-31); Mean Corpuscular Volume 104 fL (80-97); Mean Platelet Volume 8 um3 (7.4-10.4); Red Blood Count 2.11 10^6/ul (4.0-5.4); Red Cell Distribution Width 28 % (10.5-15); White Blood Count 64.4 10^3/ul (3.5-10.8)
[2016-08-30 06:01] LABS: Add Diff/Slide Review? Slide Review Added; Comments Flag Yes
[2016-08-30] MEDS: ALPRAZolam TAB* 0.25 MG PO PRN ×2 (06:17→15:07)
[2016-08-30] MEDS: Ondansetron INJ* 2 MG/ML VIAL IV PRN (06:18)
[2016-08-30 06:28] LABS: Troponin I 0.21 ng/mL (<0.04)
[2016-08-30 06:42] LABS: BUN/Creatinine Ratio 20.5 (8-20); Calcium 8.5 mg/dL (8.6-10.3); EGFR African American 40.7 (>60); EGFR Non-African American 31.6 (>60); Potassium 5.6 mmol/L (3.5-5.0)
[2016-08-30] MEDS ORDERED: Sodium Polystyrene ORAL.SOL* 15 GM/60 ML BTL PO ONE (07:04)
[2016-08-30] MEDS: Insulin LISPRO* 1 UNITS UNIT SUBCUT SCH ×4 (08:28→22:58)
[2016-08-30] MEDS: Omeprazole CAP* 20 MG PO SCH (08:29)
[2016-08-30] MEDS: Citalopram TAB* 10 MG PO SCH (08:29)
[2016-08-30] MEDS: Atenolol TAB* 25 MG PO SCH (08:29)
[2016-08-30] MEDS: Isosorbide Mononitrate ER TAB* 30 MG PO SCH (08:29)
[2016-08-30] MEDS: [UNRECOGNIZED DRUG - OTHER] PO SCH (08:46)
[2016-08-30] MEDS: METHYLFOLATE PO SCH (08:46)
[2016-08-30] MEDS: VITAMIN B6 V PO SCH (08:46)
[2016-08-30] MEDS: Cefepime(*) 1 GM in NS 0.9% 50 ML* 50 ML IVPB SCH ×2 (08:46→22:37)
[2016-08-30] MEDS ORDERED: Aspirin EC Low Dose* 81 MG TAB.EC PO SCH (09:00)
--- NOTE | 2016-08-30 13:07 | RAD ---
INDICATION: Right pleural effusion, shortness of breath. COMPARISON: Comparison is made with a prior chest x-ray study from August 28, 2016. TECHNIQUE: The benefits and risks of the procedure were explained to the patient. The patient consented to the exam. A timeout was performed before beginning the procedure. Multiple images of the chest were obtained. There was a moderate to large pleural effusion present on the right. The patient was prepped and draped in the usual sterile fashion. The patient's posterior chest wall was anesthetized with 1% lidocaine. A small skin neck was made to admit the thoracentesis needle and catheter. Approximately 1.2 L of a serous fluid was removed from the right pleural space. The patient tolerated the procedure well without incident. There was no evidence for pneumothorax and a post procedural chest x-ray. IMPRESSION: ULTRASOUND-GUIDED THORACENTESIS.
--- NOTE | 2016-08-30 13:10 | RAD ---
INDICATION: Status post right-sided thoracentesis. COMPARISON: Comparison is made with a prior chest x-ray study from August 28, 2016. TECHNIQUE: Dual-energy PA and lateral views of the chest were obtained. FINDINGS: The heart appears mildly enlarged. There is a central venous catheter present on the right side. The catheter tip projects over the right atrium. The patient is status post right-sided thoracentesis. There is a very small residual pleural effusion present on the right side. There is a small to moderate size pleural effusion present on the left side which has increased in size. No pneumothorax is seen. There is mild atelectasis at the right lung base. IMPRESSION: STATUS POST THORACENTESIS, NO EVIDENCE FOR PNEUMOTHORAX.
[2016-08-30] MEDS: Acetaminophen TAB* 325 MG PO PRN ×2 (15:06→19:56)
[2016-08-30] MEDS ORDERED: oxyCODONE TAB* 5 MG TAB PO PRN (15:22)
--- NOTE | 2016-08-30 17:47 | PN ---
Subjective Date of Service: 08/30/16 Interval History: This AM felt fatigue and SOB. No Nausea, CP, LH Feels no better than yesterday. Seen again after thoracentesis. Winter breathing was much better but developed pain in anterior right upper abdomen/lower chest wall that was not pleuritic. Objective Active Medications: Acetaminophen (Tylenol Tab*) 650 mg PO Q4H PRN PRN Reason: PAIN Last Admin: 08/30/16 15:06 Dose: 650 mg Albuterol/Ipratropium (Duoneb (Albuterol 2.5 Mg/Ipratropium 0.5 Mg)) 1 neb INH Q4H PRN PRN Reason: SOB/WHEEZING Alprazolam (Xanax Tab*) 0.25 mg PO TID PRN PRN Reason: ANXIETY Last Admin: 08/30/16 15:07 Dose: 0.25 mg Atenolol (Tenormin Tab*) 25 mg PO QAM [facility] Last Admin: 08/30/16 08:29 Dose: 25 mg Atenolol (Tenormin Tab*) 50 mg PO BEDTIME [facility] Last Admin: 08/29/16 21:22 Dose: 50 mg Citalopram Hydrobromide (Celexa Tab*) 10 mg PO DAILY [facility] PRN Reason: Protocol Last Admin: 08/30/16 08:29 Dose: 10 mg Dextrose (D50w Syringe 50 Ml*) 12.5 gm IV PUSH .FOR FS < 60 - SS PRN PRN Reason: FS < 60 Heparin Sodium (Porcine) (Heparin Flush Port (Ivad)) 5 ml FLUSH DAILY [facility] PRN Reason: Protocol Last Admin: 08/30/16 08:34 Dose: Not Given Cefepime HCl 1 gm/ Sodium (Chloride) 50 mls @ 100 mls/hr IVPB Q12H [facility] Last Admin: 08/30/16 08:46 Dose: 100 mls/hr Azithromycin 500 mg/ Sodium (Chloride) 250 mls @ 250 mls/hr IVPB Q24H [facility] Last Admin: 08/29/16 22:53 Dose: 250 mls/hr Insulin Human Lispro (Humalog*) 0 units SUBCUT ACHS [facility] PRN Reason: Protocol Last Admin: 08/30/16 15:05 Dose: Not Given Isosorbide Mononitrate (Imdur Er Tab*) 30 mg PO QAM [facility] Last Admin: 08/30/16 08:29 Dose: 30 mg Levothyroxine Sodium (Synthroid Tab*) 100 mcg PO 0600 [facility] Last Admin: 08/30/16 05:22 Dose: 100 mcg Lorazepam (Ativan Inj*) 0.5 mg IV PUSH Q4H PRN PRN Reason: ANXIETY Last Admin: 08/30/16 00:15 Dose: 0.5 mg Non-Formulary Medication (L-Methylfolate W/ Vitamin B6-V [Foltanx 3-35-2 Mg]) 1 tab PO DAILY [facility] Last Admin: 08/30/16 08:46 Dose: Not Given Omeprazole (Prilosec Cap*) 20 mg PO DAILY [facility] Last Admin: 08/30/16 08:29 Dose: 20 mg Ondansetron HCl (Zofran Inj*) 4 mg IV Q4H PRN PRN Reason: NAUSEA Last Admin: 08/30/16 06:18 Dose: 4 mg Oxycodone HCl (Roxycodone Tab*) 5 mg PO Q6H PRN PRN Reason: PAIN - SEVERE Last Admin: 08/30/16 16:55 Dose: 5 mg Vital Signs 08/29/16 08/29/16 08/29/16 19:16 20:00 21:37 Temperature 97.6 F Pulse Rate 64 Respiratory 17 20 20 Rate Blood Pressure 123/50 (mmHg) O2 Sat by Pulse 99 Oximetry 08/29/16 08/29/16 08/30/16 23:15 23:37 00:15 Temperature 97.5 F Pulse Rate 64 Respiratory 16 24 24 Rate Blood Pressure 118/50 (mmHg) O2 Sat by Pulse 96 Oximetry 08/30/16 08/30/16 08/30/16 01:15 03:40 06:17 Temperature 97.3 F Pulse Rate 62 Respiratory 18 20 18 Rate Blood Pressure 129/57 (mmHg) O2 Sat by Pulse 98 Oximetry 08/30/16 08/30/16 08/30/16 07:33 08:17 09:25 Temperature 98.4 F Pulse Rate 64 63 Respiratory 15 18 16 Rate Blood Pressure 126/55 (mmHg) O2 Sat by Pulse 97 92 Oximetry 08/30/16 08/30/16 15:07 16:55 Temperature Pulse Rate Respiratory 28 30 Rate Blood Pressure (mmHg) O2 Sat by Pulse Oximetry Oxygen Devices in Use Now: Nasal Cannula Appearance: elderly, NAD Eyes: No Scleral Icterus, PERRLA Ears/Nose/Mouth/Throat: Clear Oropharnyx, Mucous Membranes Moist Neck: NL Appearance and Movements; NL JVP, Trachea Midline Respiratory: Symmetrical Chest Expansion and Respiratory Effort, - - clear on right, muffled on left Cardiovascular: RRR Abdominal: NL Sounds; No Tenderness; No Distention, No Hepatosplenomegaly Lymphatic: No Cervical Adenopathy Extremities: No Edema Skin: No Rash or Ulcers Neurological: Alert and Oriented x 3 Result Diagrams: 08/30/16 05:16 08/30/16 05:16 Additional Lab and Data: Lab Results 08/28/16 08/28/16 08/28/16 Range/Units 12:45 12:45 12:45 WBC 77.4 H (3.5-10.8) 10^3/ul RBC 2.43 L (4.0-5.4) 10^6/ul Hgb 7.6 L (12.0-16.0) g/dl Hct 25 L (35-47) % MCV 102 H (80-97) fL MCH 31 (27-31) pg MCHC 31 (31-36) g/dl RDW 27 H (10.5-15) % Plt Count 204 (150-450) 10^3/ul MPV 9 (7.4-10.4) um3 Absolute Neuts (auto) 72.1 H (1.5-7.7) 10^3/ul Absolute Lymphs (auto) 2.2 (1.0-4.8) 10^3/ul Absolute Monos (auto) 2.8 H (0-0.8) 10^3/ul Absolute Eos (auto) 0 (0-0.6) 10^3/ul Absolute Basos (auto) 0.2 (0-0.2) 10^3/ul Absolute Nucleated RBC 0.05 10^3/ul Neutrophils % Pending Normal RBC Morphology Pending INR (Anticoag Therapy) 1.05 (0.89-1.11) APTT 25.7 L (26.0-36.3) seconds Sodium 132 L (133-145) mmol/L Potassium Pending Chloride 103 (101-111) mmol/L Carbon Dioxide 21 L (22-32) mmol/L Anion Gap Pending BUN 28 H (6-24) mg/dL Creatinine 1.42 H (0.51-0.95) mg/dL Est GFR ( Amer) 45.3 (>60) Est GFR (Non-Af Amer) 35.2 (>60) BUN/Creatinine Ratio 19.7 (8-20) Glucose 265 H (70-100) mg/dL Calcium 8.7 (8.6-10.3) mg/dL Magnesium Pending Total Bilirubin 0.70 (0.2-1.0) mg/dL AST Pending ALT 36 (7-52) U/L Alkaline Phosphatase 296 H (34-104) U/L Total Creatine Kinase 54 (10-223) U/L CK-MB (CK-2) 5.3 (0.6-6.3) ng/mL Troponin I Pending C-Reactive Protein 57.89 H (< 5.00) mg/L B-Natriuretic Peptide ( - 100) pg/mL Total Protein 6.7 (6.4-8.9) g/dL Albumin 3.8 (3.2-5.2) g/dL Globulin 2.9 (2-4) g/dL Albumin/Globulin Ratio 1.3 (1-3) Lipase 40 (11.0-82.0) U/L TSH 17.00 H (0.34-5.60) mcIU/mL 08/28/16 Range/Units 12:45 WBC (3.5-10.8) 10^3/ul RBC (4.0-5.4) 10^6/ul Hgb (12.0-16.0) g/dl Hct (35-47) % MCV (80-97) fL MCH (27-31) pg MCHC (31-36) g/dl RDW (10.5-15) % Plt Count (150-450) 10^3/ul MPV (7.4-10.4) um3 Absolute Neuts (auto) (1.5-7.7) 10^3/ul Absolute Lymphs (auto) (1.0-4.8) 10^3/ul Absolute Monos (auto) (0-0.8) 10^3/ul Absolute Eos (auto) (0-0.6) 10^3/ul Absolute Basos (auto) (0-0.2) 10^3/ul Absolute Nucleated RBC 10^3/ul Neutrophils % Normal RBC Morphology INR (Anticoag Therapy) (0.89-1.11) APTT (26.0-36.3) seconds Sodium (133-145) mmol/L Potassium Chloride (101-111) mmol/L Carbon Dioxide (22-32) mmol/L Anion Gap BUN (6-24) mg/dL Creatinine (0.51-0.95) mg/dL Est GFR ( Amer) (>60) Est GFR (Non-Af Amer) (>60) BUN/Creatinine Ratio (8-20) Glucose (70-100) mg/dL Calcium (8.6-10.3) mg/dL Magnesium Total Bilirubin (0.2-1.0) mg/dL AST ALT (7-52) U/L Alkaline Phosphatase (34-104) U/L Total Creatine Kinase (10-223) U/L CK-MB (CK-2) (0.6-6.3) ng/mL Troponin I C-Reactive Protein (< 5.00) mg/L B-Natriuretic Peptide 1137 H ( - 100) pg/mL Total Protein (6.4-8.9) g/dL Albumin (3.2-5.2) g/dL Globulin (2-4) g/dL Albumin/Globulin Ratio (1-3) Lipase (11.0-82.0) U/L TSH (0.34-5.60) mcIU/mL Microbiology and Other Data: Microbiology 08/30/16 11:55 Gram Stain - Final Body Fluid - Pleura Assess/Plan/Problems-Billing Assessment: 85 yo F h/o RCC s/o chemo 1 week prior, neulasta p/w fatigue and SOB found with large pleural effusion - Patient Problems (1) Renal cell carcinoma Comment: last therapy 1 week prior oncologist is Jaime Pennington in [place] records pending CT with advancing dz - pt would like to review with her primary oncologist although I shared some details of the scan with her and her son (2) Leukocytosis Comment: no clear source infection Improving along with decline in RBC Possible in setting of neulasta tx cefepime and azithro for possible PNA - likely d/c tomorrow on oral abx for several days (3) Pleural effusion Comment: s/p thoracentesis 08/30 with 1L removed gram stain negative (while on abx) (4) DVT prophylaxis Comment: HSQ, hold midnight for procedure tomorrow
[2016-08-30] MEDS: Atenolol TAB* 50 MG PO SCH (22:38)
[2016-08-30] MEDS: Azithromycin IV(*) 500 MG in NS 0.9% 250 ML* 250 ML IVPB SCH (23:37)
[2016-08-31 05:09] LABS: Hematocrit 27 % (35-47); Hemoglobin 8.5 g/dl (12.0-16.0); Mean Corpuscular HGB Conc 32 g/dl (31-36); Mean Corpuscular Hemoglobin 32 pg (27-31); Mean Corpuscular Volume 101 fL (80-97); Mean Platelet Volume 8 um3 (7.4-10.4); Red Blood Count 2.65 10^6/ul (4.0-5.4); Red Cell Distribution Width 24 % (10.5-15); White Blood Count 66.3 10^3/ul (3.5-10.8)
[2016-08-31 05:10] LABS: Add Diff/Slide Review? Slide Review Added; Comments Flag Yes
[2016-08-31 05:19] LABS: BUN/Creatinine Ratio 20.5 (8-20); Calcium 8.2 mg/dL (8.6-10.3); EGFR African American 49.3 (>60); EGFR Non-African American 38.3 (>60); Potassium 4.4 mmol/L (3.5-5.0)
[2016-08-31 05:56] LABS: Immature Granulocytes 18 % (0-9); Macrocytosis 2+; Metamyelocytes % 2 % (0-2); Microcytosis 1+; Neutrophil % 79 % (38-83); Polychromasia 1+
[2016-08-31] MEDS: Levothyroxine TAB* 100 MCG TAB PO SCH (07:26)
[2016-08-31] MEDS: Cefepime(*) 1 GM in NS 0.9% 50 ML* 50 ML IVPB SCH (08:42)
[2016-08-31] MEDS: Citalopram TAB* 10 MG PO SCH (08:42)
[2016-08-31] MEDS: Atenolol TAB* 25 MG PO SCH (08:42)
[2016-08-31] MEDS: Insulin LISPRO* 1 UNITS UNIT SUBCUT SCH ×2 (08:42→12:04)
[2016-08-31] MEDS: Isosorbide Mononitrate ER TAB* 30 MG PO SCH (08:43)
[2016-08-31] MEDS: Omeprazole CAP* 20 MG PO SCH (08:43)
[2016-08-31] MEDS: [UNRECOGNIZED DRUG - OTHER] PO SCH (08:44)
[2016-08-31] MEDS: VITAMIN B6 V PO SCH (08:44)
[2016-08-31] MEDS: METHYLFOLATE PO SCH (08:44)
[2016-08-31 17:41] VITALS: BP 146/64
--- NOTE | 2016-09-01 05:26 | DS ---
CC: Dr. Burkett * DISCHARGE SUMMARY: DATE OF ADMISSION: 08/28/16 DATE OF DISCHARGE: 08/31/16 PRIMARY CARE PROVIDER: Dr. Kevin Burkett. PRIMARY DIAGNOSES: 1. Shortness of breath secondary to pneumonia and pleural effusions. 2. Pleural effusions left greater than right. 3. Metastatic transitional cell carcinoma. 4. Hypertension. 5. . 6. Type 2 diabetes. PROCEDURES PERFORMED DURING HOSPITAL STAY: Right-sided thoracentesis, removal of a liter of pleural fluid. HISTORY OF PRESENT ILLNESS AND HOSPITAL COURSE: This is an 85-year-old female, presented to the hospital feeling "rotten" and complaining of shortness of breath. She was found with large right-sided pleural effusion as well as left- sided pleural effusion. She was treated with cefepime for 6 days as well as azithromycin. Underwent a thoracentesis as indicated above. After thoracentesis , her respiratory status did improve; however, did require 2 liters of oxygen on discharge to maintain O2 saturations 95% on room air. CAT scan indicated really advanced cancer, although no recent comparison after chemotherapy. She did receive chemotherapy 1 week prior and additional Neulasta which may be the reason why her leukocytosis was found to be 84,000 without blasts. Both counts trended down, white blood cell count of 64,000 and hemoglobin of 6.64. She received a unit of blood with an appropriate elevation in her H and H. There were no complications during the course of the patient's hospital stay. At followup, please: 1. Consider repeat CBC for hematocrit and continued resolution of leukocytosis. 2. Please ensure followup with Dr. Jaime Pennington. 3. Consider future chest x-ray to evaluate for continued resolution, right- sided pleural effusion, or progression of left-sided pleural effusion. Consider drainage if necessary. 4. Please follow pleural fluids until completion, have been no growth to date, x24 hours. 5. Reasons to return to the hospital including but not limited to recurrent or worsening symptoms including shortness of breath, chest pain, lightheadedness, loss of consciousness, inability to take deep breath, nausea, vomiting, lightheadedness, and inability to obtain or tolerate medications were discussed with the patient and her son. TIME SPENT: Greater than minutes were spent on discharge of this patient with greater than half the time spent [id number] with the patient and her son. [id number]/[facility] #: [id number] ADAL
[2016-09-02 12:34] LABS: Glucose, BF 203 mg/dL
== END 2016-08-31 18:00 | disposition home or self-care (01) | DRG 186 ==
LOC: ED 14:18 → MED 20:52
PROVIDERS: ADMIT Internal Medicine; ATTEND Internal Medicine
PROC: 0W993ZZ Drainage of Right Pleural Cavity, Percutaneous Approach (ICD-10-PCS; principal; 2016-08-30)
PROC: 30233N1 Transfusion of Nonautologous Red Blood Cells into Peripheral Vein, Percutaneous Approach (ICD-10-PCS; 2016-08-30)
DX: J90 Pleural effusion, not elsewhere classified (principal); J18.9 Pneumonia, unspecified organism; C79.00 Secondary malignant neoplasm of unspecified kidney and renal pelvis; G47.00 Insomnia, unspecified; Z88.8 Allergy status to other drugs, medicaments and biological substances; E11.9 Type 2 diabetes mellitus without complications; I25.10 Atherosclerotic heart disease of native coronary artery without angina pectoris; E78.00 Pure hypercholesterolemia, unspecified; I10 Essential (primary) hypertension; Z85.51 Personal history of malignant neoplasm of bladder
CPT/HCPCS: 32555; 36415; 36600; 71010; 71020; 71250; 74176; 80048; 80053; 82550; 82553; 82803; 82945; 83605; 83615; 83690; 83735; 83880; 84443; 84484; 85025; 85060; 85610; 85652; 85730; 86140; 86850; 86900; 86901; 86922; 87040; 87205; 88112; 88305; 88341; 88342; 93005; 94760; 99213; A9270-GY; G0463; J0456; J0610; J0692; J1642; J1644; J2060; J2270; J2405; P9040

== ENCOUNTER 2016-09-13 06:48 | Inpatient (IN) | payer MEDICARE, BC ==
[2016-09-13 07:11] LABS: Hematocrit 30 % (35-47); Hemoglobin 9.6 g/dl (12.0-16.0); Mean Corpuscular HGB Conc 32 g/dl (31-36); Mean Corpuscular Hemoglobin 34 pg (27-31); Mean Platelet Volume 7 um3 (7.4-10.4); Red Blood Count 2.85 10^6/ul (4.0-5.4); Red Cell Distribution Width 27 % (10.5-15); White Blood Count 23.2 10^3/ul (3.5-10.8)
[2016-09-13 07:12] LABS: Comments Flag Yes
[2016-09-13 07:13] LABS: Add Diff/Slide Review? Slide Review Added; Mean Corpuscular Volume 105 fL (80-97)
[2016-09-13] MEDS ORDERED: ALPRAZolam TAB* 0.25 MG PO ONE (07:13)
[2016-09-13 07:31] LABS: Albumin 3.5 g/dL (3.2-5.2); EGFR African American 67.9 (>60); EGFR Non-African American 52.8 (>60); Globulin 3.3 g/dL (2-4); Total Bilirubin 0.4 mg/dL (0.2-1.0); Total Protein 6.8 g/dL (6.4-8.9)
[2016-09-13 07:33] LABS: Troponin I 0.01 ng/mL (<0.04)
--- NOTE | 2016-09-13 07:33 | RAD ---
HISTORY: Shortness of breath COMPARISONS: September 04, 2016 VIEWS:1: Single frontal portable view of the chest at 7:10 AM FINDINGS: LINES AND TUBES: A right-sided chest port is noted from the internal jugular vein approach with the tip overlying the cavoatrial junction. CARDIOMEDIASTINAL SILHOUETTE: The cardiomediastinal silhouette is normal for portable technique. PLEURA: There is a large right and moderate left pleural effusion. There has been progression compared to September 04, 2016. LUNG PARENCHYMA: There is a diffuse reticular pattern with indistinct pulmonary vessels. There is confluent alveolar opacification lung bases bilaterally ABDOMEN: The upper abdomen is clear. There is no subphrenic gas. BONES AND SOFT TISSUES: Degenerative changes are noted with remote post right changes of the right humerus IMPRESSION: 1. PULMONARY INTERSTITIAL EDEMA. 2. BILATERAL PLEURAL EFFUSIONS, RIGHT GREATER THAN LEFT, WITH PROGRESSION COMPARED TO SEPTEMBER 04, 2016. 3. BIBASILAR ATELECTASIS VERSUS CONSOLIDATION
[2016-09-13 07:34] LABS: Macrocytosis 2+; Microcytosis 1+; Polychromasia 1+
[2016-09-13] MEDS ORDERED: Furosemide IV* 10 MG/ML VIAL (40 MG) IV ONE (07:52)
[2016-09-13] MEDS ORDERED: Morphine INJ* 2 MG/ML 1 ML SYRINGE IV ONE (08:22)
[2016-09-13] MEDS ORDERED: Acetaminophen TAB* 325 MG PO PRN (08:26)
[2016-09-13] MEDS ORDERED: Dextrose 50% Syringe 50 ML* 25 GM/50 ML SYRINGE IV PUSH PRN (08:30)
[2016-09-13] MEDS ORDERED: LORazepam INJ* 2 MG/ML 1 ML VIAL IV PUSH PRN (08:32)
[2016-09-13] MEDS: Morphine INJ* 2 MG/ML 1 ML SYRINGE IV PRN ×2 (08:42→21:06)
[2016-09-13 09:11] LABS: Urine Bacteria Absent (Absent); Urine Bilirubin Negative (Negative); Urine Glucose 2+(150 mg/dL) (Negative); Urine Nitrite Negative (Negative)
[2016-09-13] MEDS: Levothyroxine TAB* 100 MCG TAB PO SCH (09:30)
[2016-09-13] MEDS: Citalopram TAB* 10 MG PO SCH (09:50)
[2016-09-13] MEDS: Isosorbide Mononitrate ER TAB* 30 MG PO SCH (09:50)
[2016-09-13] MEDS: Atenolol TAB* 25 MG PO SCH (09:50)
[2016-09-13] MEDS: Aspirin Low Dose CHEW TAB* 81 MG PO SCH (09:51)
[2016-09-13] MEDS: Pantoprazole IV* 40 MG IV SCH (09:51)
--- NOTE | 2016-09-13 12:58 | RAD ---
HISTORY: Shortness of breath COMPARISONS: None relevant TECHNIQUE: Multiple transverse and longitudinal ultrasound images were obtained of the bilateral lower extremities from the level of the common femoral vein inferiorly through to the infrapopliteal veins using grayscale, color Doppler, and spectral Doppler imaging with and without compression and with augmentation. FINDINGS: VEINS: The venous system of the bilateral lower extremities is compressible throughout its course, with normal flow on color Doppler imaging and normal response to augmentation on spectral Doppler imaging. SOFT TISSUES: Unremarkable. OTHER FINDINGS: None. IMPRESSION: NO RIGHT LOWER EXTREMITY DEEP VEIN THROMBOSIS. NO LEFT LOWER EXTREMITY DEEP VEIN THROMBOSIS
[2016-09-13] MEDS: Insulin LISPRO* 1 UNITS UNIT SUBCUT SCH ×3 (13:19→21:43)
[2016-09-13] MEDS: Heparin VIAL(*) 5000 UNITS/ML VIAL (FIVE THOUSAND) SUBCUT SCH ×2 (15:20→21:41)
--- NOTE | 2016-09-13 15:32 | RAD ---
HISTORY: Status post thoracentesis COMPARISONS: September 13, 2016 at 7:10 AM VIEWS:1: Single frontal portable view of the chest at 3:15 PM FINDINGS: LINES AND TUBES: A right-sided chest port is noted from an internal jugular vein approach with the tip overlying the right atrium. CARDIOMEDIASTINAL SILHOUETTE: The cardiomediastinal silhouette is stable. PLEURA: There are small bilateral pleural effusions. This has decreased on the right compared to the previous examination. There is no appreciable pneumothorax LUNG PARENCHYMA: The lungs are clear. ABDOMEN: The upper abdomen is clear. There is no subphrenic gas. BONES AND SOFT TISSUES: No bone or soft tissue abnormalities are noted. IMPRESSION: SMALL BILATERAL PLEURAL EFFUSIONS, DECREASED ON THE RIGHT. NO APPRECIABLE PNEUMOTHORAX.
--- NOTE | 2016-09-13 17:16 | HP ---
CC: Dr. Burkett* HISTORY AND PHYSICAL: DATE OF ADMISSION: 09/13/16 PRIMARY CARE PROVIDER: Dr. Burkett. CHIEF COMPLAINT: Shortness of breath. HISTORY OF PRESENT ILLNESS: Ms. Rush is an 85-year-old female who was recently hospitalized from 08/28/16 through 08/31/16 with complaints of shortness of breath at that time. She was treated with IV antibiotics and discharged on a course of Levaquin for concern of possible pneumonia; however, she was also identified to have a very large right pleural effusion and underwent thoracentesis. Following the thoracentesis, the patient had marked improvement in her respiratory status. The patient has been feeling okay until the morning of admission. According to the patient's son, the patient had been doing fine just last evening. She saw her oncologist earlier this week and the decision was made to insert a Pleurx catheter. The patient was scheduled to have this done on 09/20/16. The patient awakened from sleep early this morning with much worsened shortness of breath. Since being in the emergency room, the patient's shortness of breath has worsened even further. The patient at this point is really unable to give any history. She just states over and over, "oh god, oh god, oh god." PAST MEDICAL HISTORY: 1. 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 2. Hypertension. 3. Hypothyroidism. 4. Hyperlipidemia. 5. Peripheral vascular disease. 6. Type 2 diabetes. PAST SURGICAL HISTORY: 1. Carotid endarterectomy. 2. Cholecystectomy. MEDICATIONS: 1. Xanax 0.25 mg p.o. t.i.d. p.r.n. anxiety. 2. 3-35-2 one tab p.o. daily. 3. Glipizide XL 5 mg p.o. daily. 4. Zofran 4 mg p.o. q.8 hours p.r.n. nausea. 5. Omeprazole 20 mg p.o. daily. 6. Metformin ER 500 mg p.o. b.i.d. 7. Synthroid 100 mcg p.o. daily. 8. Imdur 30 mg p.o. daily. 9. Lexapro 5 mg p.o. daily. 10. Atenolol 25 mg p.o. q.a.m. and 50 mg p.o. q.p.m. 11. Aspirin 81 mg p.o. daily. 12. Tylenol 650 mg p.o. q.4 hours p.r.n. pain. ALLERGIES: IODINE, which causes rash and edema. FAMILY HISTORY: Positive for her father who of an unknown cancer. SOCIAL HISTORY: The patient is a nonsmoker. She drinks alcohol on occasion. She is a retired administrative analyst. She is . Her son, Manuelito Rush, is her healthcare proxy. Phone number is [phone]. REVIEW OF SYSTEMS: Unobtainable from the patient as she is in acute respiratory distress. PHYSICAL EXAMINATION GENERAL: Patient is a well-developed elderly female, sitting up in the stretcher, appearing to be in acute respiratory distress. VITAL SIGNS: Blood pressure 177/79, pulse 85, respirations 21, temp 97.7, O2 sat 95% on 5 L. HEENT: Pupils are equal. Extraocular muscles intact. Oropharynx is clear. Oral mucosa is moist. The patient does wear upper dentures. Thyroid is not enlarged. No thyroid nodules are noted. NECK: There is no submandibular, cervical, supraclavicular adenopathy noted. PULMONARY: Markedly diminished breath sounds in all lung stephens with only the upper portions of both lungs being aerated. CARDIAC: Normal S1, S2. Heart rate is tachycardic and regular. There is 2 to 3+ bilateral lower extremity edema. ABDOMEN: Bowel sounds are present. Abdomen is soft, nontender, nondistended. MUSCULOSKELETAL: There is no cyanosis or clubbing of the digits. Range of motion is not tested due to the patient being in respiratory distress. NEUROLOGIC: Not tested due to the patient's respiratory distress. PSYCH: Not tested as she is unable to cooperative with questioning at this time. SKIN: Warm. She is diaphoretic. DIAGNOSTIC STUDIES/LAB DATA: WBC 23.2, hemoglobin 9.6, hematocrit 30, platelets 352,000. INR 0.99. Sodium 133, potassium 5.0, chloride 102, CO2 29, BUN 18, creatinine 1.0. Glucose 213. Lactic acid 0.8. Calcium 9.0. Bilirubin 0.4. AST 18, ALT 11, alk phos 147, troponin 0.01. BNP 711. Albumin 3.5. Chest x-ray, bilateral pulmonary edema, bilateral pleural effusions right greater than left with progression compared to 09/04/16, bibasilar atelectasis versus consolidation. EKG reveals normal sinus rhythm without any acute ST-T wave abnormalities. ASSESSMENT AND PLAN: Ms. Rush is an 85-year-old female with widely metastatic transitional cell carcinoma of the kidney, who presents to the emergency room for the second time this month with complaints of severe shortness of breath and is found to be at this time in acute hypoxic respiratory failure likely related to very large bilateral pleural effusions. 1. Acute hypoxic respiratory failure likely secondary to bilateral pleural effusions. The patient's son does note that she has developed significant edema over the last couple of weeks. We will go ahead and rule her out for lower extremity deep venous thrombosis. If the deep venous thrombosis is present, it is possible that her acute worsening of shortness of breath may be related to pulmonary embolism; however, at this time she is unable to lie flat for CTA of the chest. The patient received 40 mg of IV Lasix in the ER. I spoke with Dr. Martinez about performing thoracentesis and Pleurx catheter placement as the patient clearly is reaccumulating the pleural effusion very rapidly. I do believe the pleural fluid should be sent for cytology again to evaluate if this is a malignant effusion or not. 2. Bilateral pleural effusions. As above, the patient will be seen by Dr. Martinez for thoracentesis and Pleurx catheter insertion. The patient's son is somewhat hesitant about this at this time; however, I have explained that his mother is critically ill and needs to have the fluid drained as soon as possible. 3. Hypertension. The patient's blood pressure is markedly elevated; however, she was working very hard to breathe in the emergency room. I have ordered her morning atenolol and Imdur doses; however, held the evening atenolol for now. I would like to see the patient stabilize prior to giving her too many oral medications. 4. Type 2 diabetes. The patient's oral hypoglycemics will be held. She will be placed on lispro sliding scale for now. 5. Hypothyroidism. The patient will continue on her usual dose of Synthroid. 6. Depression/anxiety. The patient will continue on an auto-substitution for Lexapro. Ativan p.r.n. has been ordered in place of her Xanax that she takes at home. 7. DVT prophylaxis. According to the Adult Thrombosis Prophylaxis Risk Factor Assessment Guide, the patient has a total risk factor score of 7 making her the highest risk. She will be placed on heparin 5000 units subcutaneous q.8 hours. 8. Code status remains full at this time and the patient does indicate that she would want to be intubated if necessary. TIME SPENT: Seventy minutes was spent admitting this patient. [id number]/[facility] #: [id number] ADAL
[2016-09-14] MEDS: Morphine INJ* 2 MG/ML 1 ML SYRINGE IV PRN ×2 (01:13→05:33)
[2016-09-14] MEDS: Heparin VIAL(*) 5000 UNITS/ML VIAL (FIVE THOUSAND) SUBCUT SCH ×3 (05:33→21:45)
[2016-09-14] MEDS: Levothyroxine TAB* 100 MCG TAB PO SCH (05:33)
[2016-09-14] MEDS: Ondansetron INJ* 2 MG/ML VIAL IV PRN (05:47)
[2016-09-14] MEDS ORDERED: Morphine INJ* 2 MG/ML 1 ML SYRINGE IV PRN (09:01)
[2016-09-14] MEDS ORDERED: Furosemide IV* 10 MG/ML VIAL (40 MG) IV ONE (09:04)
[2016-09-14] MEDS: Citalopram TAB* 10 MG PO SCH (09:05)
[2016-09-14] MEDS: Pantoprazole IV* 40 MG IV SCH (09:05)
[2016-09-14] MEDS: Isosorbide Mononitrate ER TAB* 30 MG PO SCH (09:05)
[2016-09-14] MEDS: Insulin LISPRO* 1 UNITS UNIT SUBCUT SCH ×4 (09:06→22:00)
[2016-09-14] MEDS: Atenolol TAB* 25 MG PO SCH (09:06)
[2016-09-14] MEDS: Aspirin Low Dose CHEW TAB* 81 MG PO SCH (09:06)
--- NOTE | 2016-09-14 09:07 | PN ---
Subjective Date of Service: 09/14/16 Interval History: Patient seen this morning. Feels "hungover" from morphine this morning, asking if eating will help. Reports some mild pain in the back from the procedure but nothing too severe at this time. Breathing is stable. Family History: Unchanged from Admission Social History: Unchanged from Admission Past Medical History: Unchanged from Admission Objective Active Medications: Acetaminophen (Tylenol Tab*) 650 mg PO Q4H PRN PRN Reason: PAIN Aspirin (Aspirin Low Dose Tab*) 81 mg PO DAILY [facility] Last Admin: 09/13/16 09:51 Dose: 81 mg Atenolol (Tenormin Tab*) 25 mg PO QAM [facility] Last Admin: 09/13/16 09:50 Dose: 25 mg Citalopram Hydrobromide (Celexa Tab*) 10 mg PO DAILY [facility] PRN Reason: Protocol Last Admin: 09/13/16 09:50 Dose: 10 mg Dextrose (D50w Syringe 50 Ml*) 12.5 gm IV PUSH .FOR FS < 60 - SS PRN PRN Reason: FS < 60 Heparin Sodium (Porcine) (Heparin Vial(*)) 5,000 units SUBCUT Q8HR [facility] Last Admin: 09/14/16 05:33 Dose: 5,000 units Insulin Human Lispro (Humalog*) 0 units SUBCUT ACHS [facility] PRN Reason: Protocol Last Admin: 09/13/16 21:43 Dose: 2 units Isosorbide Mononitrate (Imdur Er Tab*) 30 mg PO QAM [facility] Last Admin: 09/13/16 09:50 Dose: 30 mg Levothyroxine Sodium (Synthroid Tab*) 100 mcg PO DAILY@0600 [facility] Last Admin: 09/14/16 05:33 Dose: 100 mcg Lorazepam (Ativan Inj*) 0.5 mg IV PUSH Q4H PRN PRN Reason: ANXIETY Morphine Sulfate (Morphine Inj (Syringe)*) 2 mg IV Q4H PRN PRN Reason: pain or air hunger Last Admin: 09/14/16 05:33 Dose: 2 mg Ondansetron HCl (Zofran Inj*) 4 mg IV Q6H PRN PRN Reason: NAUSEA Last Admin: 09/14/16 05:47 Dose: 4 mg Pantoprazole Sodium (Protonix Iv*) 40 mg IV DAILY [facility] Last Admin: 09/13/16 09:51 Dose: 40 mg Vital Signs 09/13/16 09/13/16 09/13/16 09:05 09:09 09:15 Temperature 97.4 F Pulse Rate 74 80 Respiratory 22 15 Rate Blood Pressure 156/141 146/56 146/56 (mmHg) O2 Sat by Pulse 90 100 Oximetry 09/13/16 09/13/16 09/13/16 19:30 19:36 20:00 Temperature Pulse Rate 64 59 Respiratory 16 13 Rate Blood Pressure 87/33 117/63 103/53 (mmHg) O2 Sat by Pulse 99 99 Oximetry 09/14/16 09/14/16 09/14/16 07:30 08:00 08:30 Temperature 97.7 F Pulse Rate 67 66 66 Respiratory 11 13 15 Rate Blood Pressure 109/56 (mmHg) O2 Sat by Pulse 96 96 96 Oximetry Oxygen Devices in Use Now: High Flow Nasal Cannula - 15L/40% Appearance: Elderly, F, laying in bed in NAD Eyes: No Scleral Icterus Ears/Nose/Mouth/Throat: - - Dry MM Neck: NL Appearance and Movements; NL JVP Respiratory: Symmetrical Chest Expansion and Respiratory Effort, - - Absent BS in bases, otherwise clear Cardiovascular: NL Sounds; No Murmurs; No JVD, RRR Abdominal: NL Sounds; No Tenderness; No Distention Lymphatic: No Cervical Adenopathy Extremities: - - B/L LE edema Skin: No Rash or Ulcers Neurological: - - Alert although a bit drowsy, no focal deficits Lines/Tubes/Other Access: Clean, Dry and Intact Hassan Result Diagrams: 09/13/16 07:00 09/13/16 07:00 Microbiology and Other Data: Microbiology 09/13/16 08:40 Urine Culture - Final Urine No Growth (<1,000 CFU/mL) Assess/Plan/Problems-Billing Assessment: Acute hypoxic respiratory 2/2 recurrent pleural effusions in an 85 yo F with hx of 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 O2 needs improving, still requiring Vapotherm at this time, continue to wean as able. (2) Pleural effusion Current Visit: No Comment: S/P thoracentesis of [address] Martinez on 09/13 , no pleurex catheter placed at this time. Repeat CXR with improvement. Redose with IV Lasix today. Previous cytology negative but seems like it is likely related to her metastatic malignancy. (3) HTN (hypertension) Current Visit: Yes Comment: BPs have been a bit soft. Will hold Imdur. Continue Atenolol with hold parameters. Lasix as above. (4) Diabetes Current Visit: Yes Comment: HISS (5) Renal cell carcinoma Current Visit: No Comment: Oncologist is Jaime Pennington in [place], will need to follow-up as an outpatient to consider pleurex catheter placement (6) DVT prophylaxis Current Visit: No Comment: HSQ Status and Disposition: Inpatient for hypoxic respiratory failure
[2016-09-14] MEDS ORDERED: Atenolol TAB* 25 MG PO SCH (09:09)
[2016-09-14] MEDS: Acetaminophen TAB* 325 MG PO PRN ×2 (09:15→21:47)
--- NOTE | 2016-09-14 17:32 | OP ---
CC: Willie Martinez MD; Kevin Burkett MD OPERATIVE REPORT: DATE OF OPERATION: 09/13/16 DATE OF : 32 SURGEON: Willie Martinez MD. DECORATING AND ASSEMBLY SUPERVISOR: None. ANESTHESIOLOGIST: None. PRE-OP DIAGNOSIS: Bilateral pleural effusions. POST-OP DIAGNOSIS: Bilateral pleural effusions. OPERATIVE PROCEDURE: Right posterior thoracentesis. DESCRIPTION OF PROCEDURE: The patient is sitting at the bedside in the ICU, leaning over the bedsid e table. The right posterior chest is examined and chest x- ray is reviewed, and I have discussed t he case with Dr. Alvarenga as well. The chest x-ray does show a large right pleural effusion and a mod erately large left pleural effusion. She had had the right side drained 2 weeks ago and this has no w recurred fairly rapidly and leaves her dyspneic, and on discussions with Dr. Alvarenga and review of the films it was decided that right thoracentesis would be carried out. Therefore, the right posterior chest was prepped with antiseptic and draped in a sterile fashion. L ocal infiltrative anesthesia was administered in approximately the ninth interspace and Skinny needl e was used to confirm the pleural fluid. The thoracentesis catheter was then inserted and samples w ere taken for the laboratory. The catheter was then hooked to the suction bottle and a total of abou t 1400 mL was obtained before the drainage quits. She tolerated this well with mild cough. No pain , no dyspnea. The fluid was pink in color and fairly thin. The catheter was removed. Bandage was placed and a chest x-ray will be obtained. [id number]/[facility] #: [id number]
[2016-09-14] MEDS ORDERED: CMCS Melatonin (NF) 3 MG TAB PO SCH (21:00)
[2016-09-15] MEDS: Levothyroxine TAB* 100 MCG TAB PO SCH (06:28)
[2016-09-15] MEDS: Heparin VIAL(*) 5000 UNITS/ML VIAL (FIVE THOUSAND) SUBCUT SCH ×2 (06:29→14:37)
[2016-09-15] MEDS: Aspirin Low Dose CHEW TAB* 81 MG PO SCH (08:17)
[2016-09-15] MEDS: Citalopram TAB* 10 MG PO SCH (08:17)
[2016-09-15] MEDS: Pantoprazole IV* 40 MG IV SCH (08:18)
[2016-09-15] MEDS: Ondansetron INJ* 2 MG/ML VIAL IV PRN (08:29)
[2016-09-15] MEDS: Insulin LISPRO* 1 UNITS UNIT SUBCUT SCH ×2 (08:47→13:02)
[2016-09-15] MEDS ORDERED: Senna TAB PO PRN (09:13)
[2016-09-15] MEDS ORDERED: Docusate CAP* 100 MG PO PRN (09:13)
--- NOTE | 2016-09-15 09:21 | PN ---
Subjective Date of Service: 09/15/16 Interval History: Patient seen this morning. Denies SOB. Only complaint is a "twinge of pain" in the back when she moves. No fever or chills. Has not been out of bed yet. O2 weaned to 3L NC Family History: Unchanged from Admission Social History: Unchanged from Admission Past Medical History: Unchanged from Admission Objective Active Medications: Acetaminophen (Tylenol Tab*) 650 mg PO Q4H PRN Aspirin (Aspirin Low Dose Tab*) 81 mg PO DAILY [facility] Atenolol (Tenormin Tab*) 25 mg PO QAM [facility] Citalopram Hydrobromide (Celexa Tab*) 10 mg PO DAILY [facility] Dextrose (D50w Syringe 50 Ml*) 12.5 gm IV PUSH .FOR FS < 60 - SS PRN Docusate Sodium (Colace Cap*) 100 mg PO DAILY PRN Heparin Sodium (Porcine) (Heparin Vial(*)) 5,000 units SUBCUT Q8HR [facility] Insulin Human Lispro (Humalog*) 0 units SUBCUT ACHS [facility] Levothyroxine Sodium (Synthroid Tab*) 100 mcg PO DAILY@0600 [facility] Lorazepam (Ativan Inj*) 0.5 mg IV PUSH Q4H PRN Melatonin (Melatonin (Nf)) 3 mg PO BEDTIME [facility] Morphine Sulfate (Morphine Inj (Syringe)*) 1 mg IV Q4H PRN Ondansetron HCl (Zofran Inj*) 4 mg IV Q6H PRN Pantoprazole Sodium (Protonix Iv*) 40 mg IV DAILY [facility] Senna (Senokot Tab*) 1 tab PO DAILY PRN Vital Signs 09/14/16 09/14/16 09/14/16 09:30 09:49 10:00 Temperature Pulse Rate 76 73 Respiratory 22 19 Rate Blood Pressure 103/55 (mmHg) O2 Sat by Pulse 96 96 95 Oximetry 09/14/16 09/14/16 09/14/16 17:30 18:00 18:30 Temperature Pulse Rate 64 73 70 Respiratory 15 23 17 Rate Blood Pressure 142/63 (mmHg) O2 Sat by Pulse 100 99 98 Oximetry 09/15/16 09/15/16 09/15/16 08:00 08:10 08:30 Temperature Pulse Rate 64 67 Respiratory 15 20 Rate Blood Pressure 126/64 (mmHg) O2 Sat by Pulse 97 98 96 Oximetry 09/15/16 09:00 Temperature Pulse Rate 71 Respiratory 20 Rate Blood Pressure 148/68 (mmHg) O2 Sat by Pulse 98 Oximetry Oxygen Devices in Use Now: Nasal Cannula - 4L Appearance: Elderly, F, laying in bed in NAD Eyes: No Scleral Icterus Ears/Nose/Mouth/Throat: Mucous Membranes Moist Neck: NL Appearance and Movements; NL JVP Respiratory: Symmetrical Chest Expansion and Respiratory Effort, - - Absent BS in B/L bases, otherwise clear Cardiovascular: NL Sounds; No Murmurs; No JVD, RRR Abdominal: NL Sounds; No Tenderness; No Distention Lymphatic: No Cervical Adenopathy Extremities: - - B/L LE pitting edema Neurological: Alert and Oriented x 3 Lines/Tubes/Other Access: Clean, Dry and Intact Hassan Result Diagrams: 09/13/16 07:00 09/13/16 07:00 Microbiology and Other Data: Assess/Plan/Problems-Billing Assessment: Acute hypoxic respiratory 2/2 recurrent pleural effusions in an 85 yo F with hx of 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 O2 improving weaned to 3L NC , was on 2L on discharge last admission. (2) Pleural effusion Current Visit: No Comment: S/P thoracentesis of [address] Martinez on 09/13 , no pleurex catheter placed at this time. Previous cytology negative but seems like it is likely related to her metastatic malignancy. Should get repeat CXR this upcoming week to ensure she does not need another thoracentesis prior to her appointment. (3) HTN (hypertension) Current Visit: Yes Comment: BPs have been trending back up. Continue Atenolol with hold parameters. May restart home Imdur. Lasix as above. (4) Diabetes Current Visit: Yes Comment: HISS (5) Renal cell carcinoma Current Visit: No Comment: Oncologist is Jaime Pennington in [place], has follow- up appointement on 09/20 for possible pleurex catheter placement. (6) DVT prophylaxis Current Visit: No Comment: HSQ Status and Disposition: Inpatient for hypoxic respiratory failure, possible discharge later today or tomorrow pending how she does ambulating
[2016-09-15 11:36] VITALS: BP 169/42
[2016-09-15 11:57] LABS: BUN/Creatinine Ratio 20.3 (8-20); Calcium 8.5 mg/dL (8.6-10.3); Potassium 5.2 mmol/L (3.5-5.0)
--- NOTE | 2016-09-16 07:28 | ED ---
Dipesh Corbin Alfonso, scribed for Boo Malin MD on 09/13/16 at 0711 . Shortness of Breath - HPI Summary HPI Summary: This patient is an 85 year [facility] 0500 today. She reports "it is so hard to breath" and "I am not calm." She rate the pain 0/ 10 in severity. Sx aggravated and alleviated by nothing. She reports "anxiety," calf swelling, and palpitations. She denies abdominal pain and CP. - History of Current Complaint Chief Complaint: EDShortnessOfBreath Hx Obtained From: Patient Onset/Duration: Sudden Onset, Lasting Hours - Since 0500 today, Still Present Timing: Constant Current Severity: Moderate Aggrevating Factors: Nothing Alleviating Factors: Nothing Associated Signs & Symptoms: Calf Pain/Swelling - Swelling - Allergy/Home Medications Allergies/Adverse Reactions: Allergies Allergy/AdvReac Type Severity Reaction Status Date / Time Iodine Allergy Severe Anaphylatic Verified 09/13/16 06:54 Shock PMH/Surg Hx/FS Hx/Imm Hx Endocrine/Hematology History: Reports: Hx Diabetes - TYPE 2, Hx Thyroid Disease Comment Only: Other Endocrine/Hematological Disorders - anemia Cardiovascular History: Reports: Hx Coronary Artery Disease, Hx Hypercholesterolemia - HDL, Hx Hypertension, Other Cardiovascular Problems/ Disorders - CARDIAC CATH 2010, CAROTID ENDARTERECTOMY Denies: Hx Angina, Hx Myocardial Infarction, Hx Valvular Heart Disease Respiratory History: Denies: Hx Asthma, Hx Chronic Obstructive Pulmonary Disease (COPD) GI History: Denies: Hx Ulcer Comment Only: Other GI Disorders - cholecystectomy History: Reports: Other Problems/Disorders - carcinoma of the left kidney Denies: Hx Renal Disease Sensory History: Reports: Hx Contacts or Glasses Denies: Hx Hearing Aid Opthamlomology History: Reports: Hx Contacts or Glasses - Cancer History Cancer Type, Location and Year: 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, back, lymph nodes Hx Chemotherapy: No Hx Radiation Therapy: No - Surgical History Surgery Procedure, Year, and Place: carotid artery cleared; GB removed; 2 cardiac caths, mediaport rt chest Hx Anesthesia Reactions: No Infectious Disease History: No Infectious Disease History: Reports: Hx Shingles - a while ago Denies: Hx Clostridium Difficile, Hx Hepatitis, Hx Human Immunodeficiency Virus (HIV), Hx of Known/Suspected MRSA, Hx Tuberculosis, Hx Known/Suspected VRE , Hx Known/Suspected VRSA, History Other Infectious Disease, Traveled Outside the [place] in Last 30 Days - Family History Known Family History: Positive: Other - No abd issues - Social History Alcohol Use: None Substance Use Type: Reports: None Smoking Status (MU): Never Smoked Tobacco Review of Systems Positive: Palpitations. Negative: Chest Pain Positive: Shortness Of Breath Negative: Abdominal Pain Positive: Edema - Calf swelling Positive: Anxious All Other Systems Reviewed And Are Negative: Yes Physical Exam Triage Information Reviewed: Yes Vital Signs On Initial Exam: Initial Vitals Temp Pulse Resp BP Pulse Ox 97.7 F 82 24 192/88 98 09/13/16 06:48 09/13/16 06:48 09/13/16 06:48 09/13/16 06:48 09/13/16 06:48 Vital Signs Reviewed: Yes Appearance: Positive: No Pain Distress, Ill-Appearing Skin: Positive: Warm, Skin Color Reflects Adequate Perfusion, Dry Head/Face: Positive: Normal Head/Face Inspection Eyes: Positive: EOMI, GADIEL ENT: Positive: Normal ENT inspection Neck: Positive: Supple, Nontender Respiratory/Lung Sounds: Positive: Clear to Auscultation, Breath Sounds Present , Other - Mild respiratory distress Cardiovascular: Positive: RRR Abdomen Description: Positive: Nontender, Soft Bowel Sounds: Positive: Present Musculoskeletal: Positive: Other - Bilateral pedal edema through the knees Neurological: Positive: Normal, Sensory/Motor Intact, Alert, Oriented to Person Place, Time Psychiatric: Positive: Anxious Diagnostics - Vital Signs Vital Signs Temp Pulse Resp BP Pulse Ox 09/13/16 07:02 85 22 95 09/13/16 07:00 183/87 09/13/16 06:48 97.7 F 82 24 192/88 98 - Laboratory Lab Results: Lab Results 09/13/16 09/13/16 09/13/16 Range/Units 07:00 07:00 07:00 WBC 23.2 H (3.5-10.8) 10^3/ul RBC 2.85 L (4.0-5.4) 10^6/ul Hgb 9.6 L (12.0-16.0) g/dl Hct 30 L (35-47) % MCV 105 H (80-97) fL MCH 34 H (27-31) pg MCHC 32 (31-36) g/dl RDW 27 H (10.5-15) % Plt Count 352 (150-450) 10^3/ul MPV 7 L (7.4-10.4) um3 Neut % (Auto) 82.7 (38-83) % Lymph % (Auto) 8.2 L (25-47) % Saline % (Auto) 7.0 (1-9) % Eos % (Auto) 1.0 (0-6) % Baso % (Auto) 1.1 (0-2) % Absolute Neuts (auto) 19.2 H (1.5-7.7) 10^3/ul Absolute Lymphs (auto) 1.9 (1.0-4.8) 10^3/ul Absolute Monos (auto) 1.6 H (0-0.8) 10^3/ul Absolute Eos (auto) 0.2 (0-0.6) 10^3/ul Absolute Basos (auto) 0.2 (0-0.2) 10^3/ul Absolute Nucleated RBC 0 10^3/ul Nucleated RBC % 0 Normal RBC Morphology Not Reportable Polychromasia 1+ Microcytosis 1+ Macrocytosis 2+ INR (Anticoag Therapy) 0.99 (0.89-1.11) Sodium 133 (133-145) mmol/L Potassium 5.0 (3.5-5.0) mmol/L Chloride 102 (101-111) mmol/L Carbon Dioxide 29 (22-32) mmol/L Anion Gap 2 (2-11) mmol/L BUN 18 (6-24) mg/dL Creatinine 1.00 H (0.51-0.95) mg/dL Est GFR ( Amer) 67.9 (>60) Est GFR (Non-Af Amer) 52.8 (>60) BUN/Creatinine Ratio 18.0 (8-20) Glucose 213 H (70-100) mg/dL Lactic Acid (0.5-2.0) mmol/L Calcium 9.0 (8.6-10.3) mg/dL Total Bilirubin 0.40 (0.2-1.0) mg/dL AST 18 (13-39) U/L ALT 11 (7-52) U/L Alkaline Phosphatase 147 H (34-104) U/L Troponin I 0.01 (<0.04) ng/mL B-Natriuretic Peptide ( - 100) pg/mL Total Protein 6.8 (6.4-8.9) g/dL Albumin 3.5 (3.2-5.2) g/dL Globulin 3.3 (2-4) g/dL Albumin/Globulin Ratio 1.1 (1-3) 09/13/16 09/13/16 Range/Units 07:00 07:00 WBC (3.5-10.8) 10^3/ul RBC (4.0-5.4) 10^6/ul Hgb (12.0-16.0) g/dl Hct (35-47) % MCV (80-97) fL MCH (27-31) pg MCHC (31-36) g/dl RDW (10.5-15) % Plt Count (150-450) 10^3/ul MPV (7.4-10.4) um3 Neut % (Auto) (38-83) % Lymph % (Auto) (25-47) % Saline % (Auto) (1-9) % Eos % (Auto) (0-6) % Baso % (Auto) (0-2) % Absolute Neuts (auto) (1.5-7.7) 10^3/ul Absolute Lymphs (auto) (1.0-4.8) 10^3/ul Absolute Monos (auto) (0-0.8) 10^3/ul Absolute Eos (auto) (0-0.6) 10^3/ul Absolute Basos (auto) (0-0.2) 10^3/ul Absolute Nucleated RBC 10^3/ul Nucleated RBC % Normal RBC Morphology Polychromasia Microcytosis Macrocytosis INR (Anticoag Therapy) (0.89-1.11) Sodium (133-145) mmol/L Potassium (3.5-5.0) mmol/L Chloride (101-111) mmol/L Carbon Dioxide (22-32) mmol/L Anion Gap (2-11) mmol/L BUN (6-24) mg/dL Creatinine (0.51-0.95) mg/dL Est GFR ( Amer) (>60) Est GFR (Non-Af Amer) (>60) BUN/Creatinine Ratio (8-20) Glucose (70-100) mg/dL Lactic Acid 0.8 (0.5-2.0) mmol/L Calcium (8.6-10.3) mg/dL Total Bilirubin (0.2-1.0) mg/dL AST (13-39) U/L ALT (7-52) U/L Alkaline Phosphatase (34-104) U/L Troponin I (<0.04) ng/mL B-Natriuretic Peptide 711 H ( - 100) pg/mL Total Protein (6.4-8.9) g/dL Albumin (3.2-5.2) g/dL Globulin (2-4) g/dL Albumin/Globulin Ratio (1-3) Result Diagrams: 09/13/16 07:00 09/15/16 11:30 Lab Statement: Any lab studies that have been ordered have been reviewed, and results considered in the medical decision making process. - Radiology CXR Radiology Interpretation Completed By: Radiologist - 1. PULMONARY INTERSTITIAL EDEMA. 2. BILATERAL PLEURAL EFFUSIONS, RIGHT GREATER THAN LEFT, WITH PROGRESSION COMPARED TO SEPTEMBER 04, 2016. 3. BIBASILAR ATELECTASIS VERSUS CONSOLIDATION - EKG 0650 Cardiac Rate: NL - BPM 85 EKG Rhythm: Sinus Rhythm Ectopy: None EKG Interpretation: Minimal ST depression in lateral leads Re-Evaluation - Re-Evaluation First Eval Re-Evaluation Time: 07:57 Comment: Discussed lab and imaging results with the patient. Course/Dx - Course Course Of Treatment: CRITICAL CARE TIME LESS THAN 30 MINUTES. ADMIT HOSPITALIST - Diagnoses Provider Diagnoses: Dyspnea, Pleural effusion - Physician Notifications Discussed Care of Patient With: Latisha Alvarenga Time Discussed With Above Provider: 07:50 Instructed by Provider To: Other - Consulted Dr. Alvarenga (Hospitalist) who agrees to admit the patient. Discharge - Discharge Plan Condition: Good Disposition: ADMITTED TO [facility] The documentation as recorded by the Dipesh mcdaniels Alfonso accurately reflects the service I personally performed and the decisions made by me, Boo Malin MD.
--- NOTE | 2016-09-16 11:57 | DS ---
CC: Dr. Burkett* DISCHARGE SUMMARY: DATE OF ADMISSION: 09/13/16 DATE OF DISCHARGE: 09/15/16 PRIMARY CARE PHYSICIAN: Dr. Burkett. PRINCIPAL DISCHARGE DIAGNOSES: Acute on chronic hypoxic respiratory failure secondary to recurrent pleural effusion. SECONDARY DIAGNOSES: 1. 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 2. Hypertension. 3. Hypothyroidism. 4. Hyperlipidemia. 5. Peripheral vascular disease. 6. Type 2 diabetes. DISCHARGE MEDICATION REGIMEN: 1. Lasix 20 mg by mouth daily. 2. Senna 1 tablet by mouth daily as needed for constipation. 3. Tylenol 650 mg by mouth every 4 hours as needed for pain. 4. Aspirin 81 mg by mouth daily. 5. Atenolol 25 mg by mouth daily and 50 mg by mouth at bedtime. 6. Lexapro 5 mg by mouth daily. 7. Imdur 30 mg by mouth daily. 8. Synthroid 100 mcg by mouth daily. 9. Metformin 500 mg by mouth 2 times daily. 10. Omeprazole 20 mg by mouth daily. 11. Zofran 4 mg by mouth every 8 hours as needed for nausea. 12. Glipizide 5 mg by mouth daily. 13. Foltanx 3-35-2 mg 1 tablet by mouth daily. 14. Alprazolam 0.25 mg by mouth 3 times daily for anxiety. STUDIES DONE DURING HOSPITALIZATION: Chest x-ray, impression: Pulmonary interstitial edema, bilateral pleural effusions, right greater than left with progression, compared to 09/04/16 bibasilar atelectasis versus consolidation. Lower extremity Dopplers, impression: No right or left lower extremity deep vein thrombosis. Repeat chest x-ray, 09/13/16, impression: Small bilateral pleural effusions, decreased on the right. No appreciable pneumothorax. HISTORY OF PRESENT ILLNESS AND HOSPITAL SUMMARY: Please see the full history and physical by Dr. Latisha Alvarenga for full details. Briefly, Ms. Rush is an 85- year-old female with a past medical history as above including recent hospitalization for shortness of breath and pleural effusion, who presented to the hospital with shortness of breath beginning on the day of admission. The patient was brought to the hospital and was noted on imaging as above to have recurrence of her pleural effusion, most significantly on the right. She required Vapotherm to maintain oxygenation. Dr. Martinez was consulted, who performed a thoracentesis on the patient with 1400 mL of fluid taken off. The patient had significant improvement in her symptoms. Over the following day , she was weaned from Vapotherm down to 3 L nasal cannula. She was able to ambulate around the unit with no issues. She was started on Lasix during this hospitalization to try to help prevent more rapid recurrence of her pleural effusion as well as for lower extremity edema. The patient will be discharged home with plans to get repeat imaging and lab work done early to middle of this next week. She has an upcoming appointment with her oncologist in [place] on 09/20/16 and a PleurX catheter will possibly be placed during that appointment. The patient will be discharged home in the care of her son and was instructed to contact Dr. Burkett's office tomorrow to ensure that her chest x-ray and blood work will be properly arranged. TIME SPENT: Total time spent on this discharge 45 minutes. This is a summary of the hospitalization, please see the full medical record for further details. [id number] #: [id number] MTDD
== END 2016-09-15 15:45 | disposition home health service (06) | DRG 186 ==
LOC: ED 06:48 → ICU 08:26
PROVIDERS: ADMIT Hospitalist; ATTEND Hospitalist
PROC: 0W993ZZ Drainage of Right Pleural Cavity, Percutaneous Approach (ICD-10-PCS; principal; 2016-09-13)
DX: J90 Pleural effusion, not elsewhere classified (principal); J96.21 Acute and chronic respiratory failure with hypoxia; C64.2 Malignant neoplasm of left kidney, except renal pelvis; I10 Essential (primary) hypertension; E03.9 Hypothyroidism, unspecified; E78.5 Hyperlipidemia, unspecified; E11.51 Type 2 diabetes mellitus with diabetic peripheral angiopathy without gangrene; F41.9 Anxiety disorder, unspecified; F32.9 Major depressive disorder, single episode, unspecified; I25.10 Atherosclerotic heart disease of native coronary artery without angina pectoris; E78.00 Pure hypercholesterolemia, unspecified; Z90.49 Acquired absence of other specified parts of digestive tract; Z91.041 Radiographic dye allergy status; Z80.9 Family history of malignant neoplasm, unspecified; Z92.21 Personal history of antineoplastic chemotherapy; Z79.82 Long term (current) use of aspirin; Z79.84 Long term (current) use of oral hypoglycemic drugs
CPT/HCPCS: 36415; 71010; 80048; 80053; 81003; 81015; 83605; 83880; 84484; 85025; 85610; 87086; 88112; 88305; 93005; 93970; 94760; A9270-GY; J1644; J1940; J2270; J2405

== ENCOUNTER 2016-09-18 14:15 | Emergency (ER) | payer MEDICARE, BC ==
--- NOTE | 2016-09-18 16:16 | ED ---
Dipesh Corbin Alfonso, scribed for Boo Malin MD on 09/18/16 at 1455 . Complex/Multi-Sys Presentation - HPI Summary HPI Summary: This patient is an 85 year old female presenting to [facility] accompanied by son c/ o SOB since earlier today. She presented to [facility] 5 days ago with provider diagnoses of dyspnea and pleural effusion. The pleural effusion was treated 5 days ago, and the patient is now requesting a CXR to determine if the left lung has accumulated more fluid. She rates the pain 0/10 in severity. Sx aggravated and alleviated by nothing. She reports discomfort in her shoulder and "fear my lungs will fill up like it did last week." - History Of Current Complaint Chief Complaint: EDGeneral Time Seen by Provider: 09/18/16 14:40 Hx Obtained From: Patient Onset/Duration: Sudden Onset, Lasting Hours - Earlier today Timing: Constant Severity Currently: Mild Severity Initially: Mild Aggravating Factor(s): Nothing Alleviating Factor(s): Nothing Associated Signs And Symptoms: Positive: SOB, Other - Positive discomfort in her shoulder and "fear my lungs will fill up like it did last week." Related History: Recent Illness - [facility] 5 days ago with provider diagnoses of dyspnea and pleural effusion. - Allergies/Home Medications Allergies/Adverse Reactions: Allergies Allergy/AdvReac Type Severity Reaction Status Date / Time Iodine Allergy Severe Anaphylatic Verified 09/13/16 06:54 Shock PMH/Surg Hx/FS Hx/Imm Hx Endocrine/Hematology History: Reports: Hx Diabetes - TYPE 2, Hx Thyroid Disease , Hx Anemia Comment Only: Other Endocrine/Hematological Disorders - anemia Cardiovascular History: Reports: Hx Coronary Artery Disease, Hx Hypercholesterolemia - HDL, Hx Hypertension, Other Cardiovascular Problems/ Disorders - CARDIAC CATH 2010, CAROTID ENDARTERECTOMY Denies: Hx Angina, Hx Myocardial Infarction, Hx Valvular Heart Disease Respiratory History: Reports: Other Respiratory Problems/Disorders - bladder cancer, multiple pleural effusions Denies: Hx Asthma, Hx Chronic Obstructive Pulmonary Disease (COPD) GI History: Denies: Hx Ulcer Comment Only: Other GI Disorders - cholecystectomy History: Reports: Other Problems/Disorders - carcinoma of the left kidney Denies: Hx Renal Disease Sensory History: Reports: Hx Cataracts, Hx Contacts or Glasses, Hx Vision Problem Denies: Hx Deafness, Hx Hearing Aid Opthamlomology History: Reports: Hx Cataracts, Hx Contacts or Glasses, Hx Vision Problem Psychiatric History: Reports: Hx Anxiety - Cancer History Cancer Type, Location and Year: 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, back, lymph nodes Hx Chemotherapy: No Hx Radiation Therapy: No - Surgical History Surgery Procedure, Year, and Place: carotid artery cleared; GB removed; 2 cardiac caths, mediaport rt chest Hx Anesthesia Reactions: No Infectious Disease History: No Infectious Disease History: Reports: Hx Shingles - a while ago Denies: Hx Clostridium Difficile, Hx Hepatitis, Hx Human Immunodeficiency Virus (HIV), Hx of Known/Suspected MRSA, Hx Tuberculosis, Hx Known/Suspected VRE , Hx Known/Suspected VRSA, History Other Infectious Disease, Traveled Outside the [place] in Last 30 Days - Family History Known Family History: Positive: Other - No abd issues - Social History Alcohol Use: None Substance Use Type: Reports: None Smoking Status (MU): Never Smoked Tobacco Review of Systems Negative: Fever Positive: Shortness Of Breath Positive: Arthralgia - discomfort in her shoulder Psychological: Other - Positive "fear my lungs will fill up like it did last week." All Other Systems Reviewed And Are Negative: Yes Physical Exam Triage Information Reviewed: Yes Vital Signs On Initial Exam: Initial Vitals Temp Pulse Resp BP Pulse Ox 97.9 F 68 18 131/67 99 09/18/16 14:21 09/18/16 14:21 09/18/16 14:21 09/18/16 14:21 09/18/16 14:21 Vital Signs Reviewed: Yes Appearance: Positive: No Pain Distress, Well-Nourished Skin: Positive: Warm, Skin Color Reflects Adequate Perfusion, Dry Head/Face: Positive: Normal Head/Face Inspection Eyes: Positive: EOMI, GADIEL ENT: Positive: Normal ENT inspection Neck: Positive: Supple, Nontender Respiratory/Lung Sounds: Positive: Breath Sounds Present, Other - Good aeration in upper areas of bilateral lungs. Decreased aeration in lower areas of bilateral lungs. Cardiovascular: Positive: RRR Abdomen Description: Positive: Nontender, Soft Bowel Sounds: Positive: Present Musculoskeletal: Positive: Normal, Strength/ROM Intact Neurological: Positive: Normal, Sensory/Motor Intact, Alert, Oriented to Person Place, Time Psychiatric: Positive: Affect/Mood Appropriate Diagnostics - Vital Signs Vital Signs Temp Pulse Resp BP Pulse Ox 09/18/16 14:21 97.9 F 68 18 131/67 99 - Laboratory Lab Statement: Any lab studies that have been ordered have been reviewed, and results considered in the medical decision making process. Complex Multi-Symp Course/Dx Course Of Treatment: NO CRITICAL CARE TIME. COMPARED CHEST X-RAYS; PRE/POST PLEUROCENTESIS AND TODAYS WITH DR HERNANDEZ, HOSPITALIST. PATIENT MINIMALLY SOB TODAY; VSS. THE PLAN IS TO HAVE THE PATIENT TAKE AN EXTRA TABLET OF LASIX TOMORROW AM AND F/U IN [place] SCHEDULED ON 09/20/16. DISCHARGE HOME STABLE. - Diagnoses Provider Diagnoses: Pleural effusion - Physician Notifications Discussed Care Of Patient With: Kaylyn Hernandez Time Discussed With Above Provider: 15:21 Instructed by Provider To: Other - Consulted Dr. Hernandez (hospitalist) who after reviewing imaging and labs stated the findings were not acute. Discharge - Discharge Plan Condition: Stable Disposition: HOME Patient Education Materials: Pleural Effusion (ED) Referrals: Kevin Burkett MD [Primary Care Provider] - Additional Instructions: FOLLOW UP WITH YOUR DOCTOR. TAKE ONE EXTRA LASIX TABLET TOMORROW MORNING. RETURN TO THE EMERGENCY DEPARTMENT FOR ANY WORSENING OF YOUR CONDITION; SHORTNESS OF BREATH, YOU FEEL ILL, CHEST PAIN OR QUESTIONS OR CONCERNS. The documentation as recorded by the Dipesh mcdaniels Alfonso accurately reflects the service I personally performed and the decisions made by me, Boo Malin MD.
[2016-09-18 16:55] VITALS: BP 124/78
== END 2016-09-18 16:55 | disposition home or self-care (01) ==
LOC: ED 14:15
DX: J90 Pleural effusion, not elsewhere classified (principal); C67.9 Malignant neoplasm of bladder, unspecified; C78.7 Secondary malignant neoplasm of liver and intrahepatic bile duct; C77.9 Secondary and unspecified malignant neoplasm of lymph node, unspecified; C79.89 Secondary malignant neoplasm of other specified sites; E11.9 Type 2 diabetes mellitus without complications; I25.10 Atherosclerotic heart disease of native coronary artery without angina pectoris; E07.9 Disorder of thyroid, unspecified; E78.5 Hyperlipidemia, unspecified
CPT/HCPCS: 99282

== ENCOUNTER → 2016-09-22 10:45 | Emergency (ER) | payer MEDICARE, BC ==
[~2016-09-22 10:45] MED LIST: Acetaminophen TAB* 325 MG ONE; Furosemide IV* 10 MG/ML VIAL (40 MG) IV SLOW PU ONE
[2016-09-22 10:59] VITALS: BP 144/65
[2016-09-22 11:51] LABS: Hematocrit 29 % (35-47); Hemoglobin 9.4 g/dl (12.0-16.0); Mean Corpuscular HGB Conc 33 g/dl (31-36); Mean Corpuscular Hemoglobin 35 pg (27-31); Mean Platelet Volume 8 um3 (7.4-10.4); Red Blood Count 2.71 10^6/ul (4.0-5.4); Red Cell Distribution Width 26 % (10.5-15); White Blood Count 10.3 10^3/ul (3.5-10.8)
--- NOTE | 2016-09-22 11:52 | RAD ---
HISTORY: Shortness of breath COMPARISONS: September 18, 2016 VIEWS:1: Single frontal portable view of the chest at 11:35 AM FINDINGS: LINES AND TUBES: A right-sided chest port is noted with the tip overlying the cavoatrial junction CARDIOMEDIASTINAL SILHOUETTE: The cardiomediastinal silhouette is stable. PLEURA: There are moderate bilateral pleural effusions, greater on the right than on the left. These have mildly progressed compared to September 18, 2016 LUNG PARENCHYMA: The lung volumes are low. There is patchy linear opacification of the lung bases bilaterally ABDOMEN: The upper abdomen is clear. There is no subphrenic gas. BONES AND SOFT TISSUES: There is remote post traumatic changes to the right humerus IMPRESSION: BILATERAL PLEURAL EFFUSIONS WITH BIBASILAR ATELECTASIS VERSUS CONSOLIDATION, SOMEWHAT PROGRESSED COMPARED TO SEPTEMBER 18, 2016
[2016-09-22 12:00] LABS: Comments Flag Yes
[2016-09-22 12:01] LABS: Add Diff/Slide Review? Slide Review Added; Mean Corpuscular Volume 106 fL (80-97)
[2016-09-22 12:06] LABS: Albumin 3.3 g/dL (3.2-5.2); BUN/Creatinine Ratio 14.5 (8-20); Calcium 9.2 mg/dL (8.6-10.3); EGFR African American 49.7 (>60); EGFR Non-African American 38.7 (>60); Globulin 3.6 g/dL (2-4); Total Bilirubin 0.4 mg/dL (0.2-1.0); Total Protein 6.9 g/dL (6.4-8.9)
--- NOTE | 2016-09-22 14:50 | ED ---
Sumi Corbin SooYoung, scribed for Ramesh Kamara MD on 09/22/16 at 1127 . Shortness of Breath - HPI Summary HPI Summary: An 85 y/o F BIBA presents to ED with c/o SOB onset this AM. Associated sx: anxiety. Denies pain, fever. Given CPAP by EMS. Last seen in ED on 09/18 and told to f/u with [facility] on 09/20. On 2 to 3 L of home O2. She only took her thyroid medicine this AM. Per pt's son, they met the surgeon at [facility] on 09/20, discussed pt being added to study for pleural cath with silver nitrate, pt had multiple CXRs, but when pt and son left the office 09/20 before getting XR results. 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 Pt is being treated at [facility], stopped chemo in July, began immunotherapy two days ago. Sees Dr. Pennington, surgeon at [facility]. - History of Current Complaint Chief Complaint: EDShortnessOfBreath Time Seen by Provider: 09/22/16 11:26 Hx Obtained From: Patient, Family/Production Controller - son Onset/Duration: Lasting Hours, Still Present Timing: Constant Current Severity: Moderate - Allergy/Home Medications Allergies/Adverse Reactions: Allergies Allergy/AdvReac Type Severity Reaction Status Date / Time Iodine Allergy Severe Anaphylatic Verified 09/13/16 06:54 Shock PMH/Surg Hx/FS Hx/Imm Hx Previously Healthy: No Endocrine/Hematology History: Reports: Hx Diabetes - TYPE 2, Hx Thyroid Disease , Hx Anemia Comment Only: Other Endocrine/Hematological Disorders - anemia Cardiovascular History: Reports: Hx Coronary Artery Disease, Hx Hypercholesterolemia - HDL, Hx Hypertension, Other Cardiovascular Problems/ Disorders - CARDIAC CATH 2010, CAROTID ENDARTERECTOMY Denies: Hx Angina, Hx Myocardial Infarction, Hx Valvular Heart Disease Respiratory History: Reports: Other Respiratory Problems/Disorders - bladder cancer, multiple pleural effusions Denies: Hx Asthma, Hx Chronic Obstructive Pulmonary Disease (COPD) GI History: Denies: Hx Ulcer Comment Only: Other GI Disorders - cholecystectomy History: Reports: Other Problems/Disorders - carcinoma of the left kidney Denies: Hx Renal Disease Sensory History: Reports: Hx Cataracts, Hx Contacts or Glasses, Hx Vision Problem Denies: Hx Deafness, Hx Hearing Aid Opthamlomology History: Reports: Hx Cataracts, Hx Contacts or Glasses, Hx Vision Problem Psychiatric History: Reports: Hx Anxiety - Cancer History Cancer Type, Location and Year: 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, back, lymph nodes Hx Chemotherapy: No Hx Radiation Therapy: No - Surgical History Surgery Procedure, Year, and Place: carotid artery cleared; GB removed; 2 cardiac caths, mediaport rt chest Hx Anesthesia Reactions: No Infectious Disease History: No Infectious Disease History: Reports: Hx Shingles - a while ago Denies: Hx Clostridium Difficile, Hx Hepatitis, Hx Human Immunodeficiency Virus (HIV), Hx of Known/Suspected MRSA, Hx Tuberculosis, Hx Known/Suspected VRE , Hx Known/Suspected VRSA, History Other Infectious Disease, Traveled Outside the [place] in Last 30 Days - Family History Known Family History: Positive: Other - No abd issues - Social History Occupation: Student Lives: With Family Alcohol Use: None Hx Substance Use: No Substance Use Type: Reports: None Hx Tobacco Use: No Smoking Status (MU): Never Smoked Tobacco Review of Systems Negative: Fever, Chills Negative: Erythema Negative: Sore Throat Negative: Chest Pain Positive: Shortness Of Breath. Negative: Cough Negative: Abdominal Pain, Vomiting, Nausea Negative: dysuria, hematuria Negative: Myalgia, Edema Negative: Rash Neurological: Other - neg: dizziness Positive: Anxious All Other Systems Reviewed And Are Negative: Yes Physical Exam - Summary Physical Exam Summary: Constitutional: Well-developed, Well-nourished, Alert. (-) Distressed; Skin: Warm, Dry; PALE APPEARANCE HENT: Normocephalic; Atraumatic Eyes: Conjunctiva normal Neck: Musculoskeletal ROM normal neck. (-) JVD, (-) Stridor, (-) Tracheal deviation Cardio: Rhythm regular, rate normal, Heart sounds normal; Intact distal pulses; The pedal pulses are 2+ and symmetric. Radial pulses are 2+ and symmetric. (-) Murmur Pulmonary/Chest wall: (-) Wheezes, (-) Rales; VERY DIMINISHED BREATH SOUNDS Abd: Soft, (-) Tenderness, (-) Distension, (-) Guarding, (-) Rebound Musculoskeletal: (-) Edema Lymph: (-) Cervical adenopathy Neuro: Alert, Oriented x3 Psych: Mood and affect Normal Triage Information Reviewed: Yes Vital Signs On Initial Exam: Initial Vitals Temp Pulse Resp Pulse Ox 98.4 F 88 25 99 09/22/16 10:51 09/22/16 10:51 09/22/16 10:51 09/22/16 10:51 Vital Signs Reviewed: Yes - [place] Coma Scale Coma Scale Total: 15 Diagnostics - Vital Signs Vital Signs Temp Pulse Resp BP Pulse Ox 09/22/16 10:54 97.8 F 67 23 144/65 99 09/22/16 10:51 98.4 F 88 25 99 - Laboratory Lab Results: Lab Results 09/22/16 09/22/16 09/22/16 Range/Units 11:15 11:15 11:15 WBC 10.3 (3.5-10.8) 10^3/ul RBC 2.71 L (4.0-5.4) 10^6/ul Hgb 9.4 L (12.0-16.0) g/dl Hct 29 L (35-47) % MCV 106 H (80-97) fL MCH 35 H (27-31) pg MCHC 33 (31-36) g/dl RDW 26 H (10.5-15) % Plt Count 357 (150-450) 10^3/ul MPV 8 (7.4-10.4) um3 Neut % (Auto) 70.1 (38-83) % Lymph % (Auto) 14.4 L (25-47) % [place] % (Auto) 8.5 (1-9) % Eos % (Auto) 6.0 (0-6) % Baso % (Auto) 1.0 (0-2) % Absolute Neuts (auto) 7.3 (1.5-7.7) 10^3/ul Absolute Lymphs (auto) 1.5 (1.0-4.8) 10^3/ul Absolute Monos (auto) 0.9 H (0-0.8) 10^3/ul Absolute Eos (auto) 0.6 (0-0.6) 10^3/ul Absolute Basos (auto) 0.1 (0-0.2) 10^3/ul Absolute Nucleated RBC 0 10^3/ul Nucleated RBC % 0 Sodium 134 (133-145) mmol/L Potassium 5.0 (3.5-5.0) mmol/L Chloride 98 L (101-111) mmol/L Carbon Dioxide 30 (22-32) mmol/L Anion Gap 6 (2-11) mmol/L BUN 19 (6-24) mg/dL Creatinine 1.31 H (0.51-0.95) mg/dL Est GFR ( Amer) 49.7 (>60) Est GFR (Non-Af Amer) 38.7 (>60) BUN/Creatinine Ratio 14.5 (8-20) Glucose 180 H (70-100) mg/dL Lactic Acid 1.0 (0.5-2.0) mmol/L Calcium 9.2 (8.6-10.3) mg/dL Total Bilirubin 0.40 (0.2-1.0) mg/dL AST 19 (13-39) U/L ALT 11 (7-52) U/L Alkaline Phosphatase 100 (34-104) U/L Troponin I 0.00 (<0.04) ng/mL Total Protein 6.9 (6.4-8.9) g/dL Albumin 3.3 (3.2-5.2) g/dL Globulin 3.6 (2-4) g/dL Albumin/Globulin Ratio 0.9 L (1-3) Result Diagrams: 09/22/16 11:15 09/22/16 11:15 Lab Statement: Any lab studies that have been ordered have been reviewed, and results considered in the medical decision making process. - EKG 1055 Cardiac Rate: NL - 69bpm EKG Rhythm: Sinus Rhythm ST Segment: Normal - no STEMI Re-Evaluation - Re-Evaluation First Eval Re-Evaluation Time: 13:00 Change: Unchanged Second Eval Re-Evaluation Time: 14:30 Change: Unchanged Course/Dx - Course Course Of Treatment: EKG is NSR at 69bpm, no STEMI. Spoke to Dr. Hernandez, ED physician at [facility], will accept pt for transfer. Pt not in distress in ED, do not anticipate pt needing bipap/cpap during transport. Emergent thoracentesis not indicated. Pt responded well to Lasix in ED. - Diagnoses Provider Diagnoses: Recurrent pleural effusion on right - Critical Care Time Critical Care Time: 30-74 min - 35mins Discharge - Discharge Plan Condition: Stable Disposition: TRANS HIGHER LVL OF CARE FAC Referrals: Kevin Burkett MD [Primary Care Provider] - Consult Consult: 1245: Call out to [facility] Transfer Center. 1343: Call out to [facility] Transfer Center 1345: Spoke to Dr. Hernandez, ED physician at [facility] Will accept pt for transfer. Pt not in distress, do not anticipate pt needing bipap/cpap during transport. Emergent thoracentesis not indicated. The documentation as recorded by the Sumi mcdaniels SooYoung accurately reflects the service I personally performed and the decisions made by me, Ramesh Kamara MD.
== END | disposition short-term general hospital (02) ==
LOC: ED 10:45
DX: J90 Pleural effusion, not elsewhere classified (principal); C78.7 Secondary malignant neoplasm of liver and intrahepatic bile duct; C67.9 Malignant neoplasm of bladder, unspecified; C77.9 Secondary and unspecified malignant neoplasm of lymph node, unspecified; C79.89 Secondary malignant neoplasm of other specified sites; E11.9 Type 2 diabetes mellitus without complications; I25.10 Atherosclerotic heart disease of native coronary artery without angina pectoris; E07.9 Disorder of thyroid, unspecified; E78.5 Hyperlipidemia, unspecified
CPT/HCPCS: 36415; 71010; 80053; 83605; 84484; 85025; 87040; 93005; 96374; 99285; A9270-GY; J1940

== ENCOUNTER 2016-09-28 21:12 | Emergency (ER) | payer MEDICARE, BC ==
[2016-09-28] MEDS ORDERED: Ondansetron INJ* 2 MG/ML VIAL IV ONE (21:24)
[2016-09-28] MEDS ORDERED: NS 0.9% 1000 ML* 1,000 ML IV ONE (21:24)
--- NOTE | 2016-09-28 21:52 | ED ---
Carmita Corbin Rebecca, scribed for Willie Pineda MD on 09/28/16 at 2117 . Shortness of Breath - HPI Summary HPI Summary: Pt is an 85 y/o F BIBA who presents to ED c/o acute on chronic SOB. SOB worsened tonight at approximately 1600 and is characterized as dyspnea at rest. Additionally c/o V/D. Sx aggravated and alleviated by nothing. Pt was last seen by [facility] ED 6 days ago for similar sx, for which she was transferred to [facility]. PMHx repeated pleural effusions secondary to CA. She was D/C from [facility] 2 days ago where a pleurx catheter was put in place. Reports pleural effusions have required repeated drainage every day, with the most recent procedure at 1100 today. Current symptoms are similar to prior episodes when fluid had accumulated and required drainage. Oncologist is Dr. Pennington. - History of Current Complaint Chief Complaint: EDShortnessOfBreath Time Seen by Provider: 09/28/16 21:15 Hx Obtained From: Patient Onset/Duration: Still Present, Worse Since - 1600 today Dyspnea At: Rest Aggrevating Factors: Nothing Alleviating Factors: Nothing - Allergy/Home Medications Allergies/Adverse Reactions: Allergies Allergy/AdvReac Type Severity Reaction Status Date / Time Iodine Allergy Severe Anaphylatic Verified 09/13/16 06:54 Shock Home Medications: Home Medications Calcium Ascorbate [Vitamin C] 500 mg PO DAILY 09/29/16 [History Confirmed ] Cholecalciferol [Vitamin D] 1,000 unit PO DAILY 09/29/16 [History Confirmed ] Ferrous Sulfate [Fe Tabs] 325 mg PO DAILY 09/29/16 [History Confirmed 09/29/16] Furosemide TAB* [Lasix TAB*] 20 mg PO BID 09/29/16 [History Confirmed 09/29/16] Melatonin 3 mg PO BEDTIME 09/29/16 [History Confirmed 09/29/16] Promethazine HCl 25 mg PO Q6HR PRN 09/29/16 [History Confirmed 09/29/16] Senna TAB* [Senokot TAB*] 1 tab PO DAILY 09/29/16 [History Confirmed 09/29/16] l-Methylfolate W/ Vitamin B6-V [Foltanx] 1 tab PO DAILY 09/29/16 [History Confirmed 09/29/16] PMH/Surg Hx/FS Hx/Imm Hx Endocrine/Hematology History: Reports: Hx Diabetes - TYPE 2, Hx Thyroid Disease , Hx Anemia Comment Only: Other Endocrine/Hematological Disorders - anemia Cardiovascular History: Reports: Hx Coronary Artery Disease, Hx Hypercholesterolemia - HDL, Hx Hypertension, Other Cardiovascular Problems/ Disorders - CARDIAC CATH 2010, CAROTID ENDARTERECTOMY Denies: Hx Angina, Hx Myocardial Infarction, Hx Valvular Heart Disease Respiratory History: Reports: Other Respiratory Problems/Disorders - bladder cancer, multiple pleural effusions Denies: Hx Asthma, Hx Chronic Obstructive Pulmonary Disease (COPD) GI History: Denies: Hx Ulcer Comment Only: Other GI Disorders - cholecystectomy History: Reports: Other Problems/Disorders - carcinoma of the left kidney Denies: Hx Renal Disease Sensory History: Reports: Hx Cataracts, Hx Contacts or Glasses, Hx Vision Problem Denies: Hx Deafness, Hx Hearing Aid Opthamlomology History: Reports: Hx Cataracts, Hx Contacts or Glasses, Hx Vision Problem Psychiatric History: Reports: Hx Anxiety - Cancer History Cancer Type, Location and Year: 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, back, lymph nodes Hx Chemotherapy: No Hx Radiation Therapy: No - Surgical History Surgery Procedure, Year, and Place: carotid artery cleared; GB removed; 2 cardiac caths, mediaport rt chest Hx Anesthesia Reactions: No Infectious Disease History: Reports: Hx Shingles - a while ago Denies: Hx Clostridium Difficile, Hx Hepatitis, Hx Human Immunodeficiency Virus (HIV), Hx of Known/Suspected MRSA, Hx Tuberculosis, Hx Known/Suspected VRE , Hx Known/Suspected VRSA, History Other Infectious Disease, Traveled Outside the [place] in Last 30 Days - Family History Known Family History: Positive: Other - No abd issues - Social History Alcohol Use: None Hx Substance Use: No Substance Use Type: Reports: None Hx Tobacco Use: No Smoking Status (MU): Never Smoked Tobacco Review of Systems Positive: Shortness Of Breath Positive: Vomiting, Diarrhea All Other Systems Reviewed And Are Negative: Yes Physical Exam Triage Information Reviewed: Yes Vital Signs Reviewed: Yes Appearance: Positive: No Pain Distress, Ill-Appearing Skin: Positive: Warm Head/Face: Positive: Normal Head/Face Inspection Eyes: Positive: GADIEL ENT: Positive: Hearing grossly normal Neck: Positive: Supple Respiratory/Lung Sounds: Positive: Other - mild bibasilar dullness Cardiovascular: Positive: RRR Abdomen Description: Positive: Nontender, Soft Bowel Sounds: Positive: Present Musculoskeletal: Positive: Strength/ROM Intact Neurological: Positive: Alert, Oriented to Person Place, Time Diagnostics - Laboratory Result Diagrams: 09/28/16 22:35 09/28/16 22:35 Lab Statement: Any lab studies that have been ordered have been reviewed, and results considered in the medical decision making process. - Radiology CXR Xray Interpretation: Positive (See Comments) - Bilateral pleural effusions Radiology Interpretation Completed By: ED Physician - EKG 2135 Cardiac Rate: NL - 66 bpm EKG Rhythm: Sinus Rhythm EKG Interpretation: No STEMI Re-Evaluation - Re-Evaluation First Eval Re-Evaluation Time: 00:02 Change: Improved Comment: Discussed CXR and lab findings with the pt. Course/Dx - Course Assessment/Plan: Pt is an 85 y/o F BIBA who presents to ED c/o acute on chronic SOB (dysonea at rest), worsened tonight at 1600. SOB worsened tonight at Additionally c/o V/D. Pt was last seen by [facility] ED 6 days ago for similar sx, for which she was transferred to [facility]. PMHx repeated pleural effusions secondary to CA. She was D/C from [facility] 2 days ago where a pleurx catheter was put in place. Reports pleural effusions have required repeated drainage every day, with the most recent procedure at 1100 today. Current symptoms are similar to prior episodes when fluid had accumulated and required drainage. Oncologist is Dr. Pennington. WBC of 12.8. CXR reveals bilateral pleural effusions. UA reveals color: yellow, appearance: cloudy, specific gravity: 1.009, blood: 1+, WBC: 3+, RBC: 2+, leukocyte esterase : 3+ and negative for nitrate, ketones and protein. EKG reveals no acute findings. She will be D/C to home with Dx of UTI and an Rx for Bactrim. She understands and agrees. Patient's medications reviewed this visit. - Diagnoses Provider Diagnoses: UTI (urinary tract infection) Discharge - Discharge Plan Condition: Improved Disposition: HOME Prescriptions: Sulfamethox/Trimethoprim DS* [Bactrim DS 800/160 TAB*] 1 tab PO BID #14 tab Patient Education Materials: Urinary Tract Infection in Women (ED) Referrals: Kevin Burkett MD [Primary Care Provider] - 3 Days The documentation as recorded by the Carmita mcdaniels Rebecca accurately reflects the service I personally performed and the decisions made by me, Willie Pineda MD.
[2016-09-28 22:50] LABS: Add Diff/Slide Review? Manual Diff Added; Comments Flag Yes; Hematocrit 24 % (35-47); Hemoglobin 7.9 g/dl (12.0-16.0); Mean Corpuscular HGB Conc 33 g/dl (31-36); Mean Corpuscular Hemoglobin 35 pg (27-31); Mean Corpuscular Volume 106 fL (80-97); Mean Platelet Volume 8 um3 (7.4-10.4); Red Blood Count 2.29 10^6/ul (4.0-5.4); Red Cell Distribution Width 23 % (10.5-15); White Blood Count 12.8 10^3/ul (3.5-10.8)
[2016-09-28 23:01] LABS: BUN/Creatinine Ratio 17.3 (8-20); Calcium 8.8 mg/dL (8.6-10.3); EGFR African American 51.6 (>60); EGFR Non-African American 40.1 (>60); Globulin 3.3 g/dL (2-4); Magnesium 1.9 mg/dL (1.9-2.7); Potassium 4.8 mmol/L (3.5-5.0); Total Bilirubin 0.3 mg/dL (0.2-1.0); Total Protein 6.3 g/dL (6.4-8.9)
[2016-09-28 23:13] LABS: Eosinophils % 6 % (0-6); Immature Granulocytes 3 % (0-9); Neutrophil % 59 % (38-83)
[2016-09-28 23:14] LABS: Hypochromasia 1+; Macrocytosis 2+
[2016-09-28 23:45] LABS: Urine Bacteria 1+ (Absent); Urine Bilirubin Negative (Negative); Urine Glucose 3+(>=500 mg/dL) (Negative); Urine Nitrite Negative (Negative)
[2016-09-28] MEDS ORDERED: Sulfamethox/Trimethoprim DS 800/160* TAB PO ONE (23:47)
[2016-09-29 02:08] VITALS: BP 140/62
--- NOTE | 2016-09-29 09:00 | RAD ---
Indication: Shortness of breath. 2 views of the chest demonstrates cardiomegaly. I lateral pleural effusions are noted worse on the left than on the right. Bibasilar atelectasis is noted. Interstitial edema appears to BE improved since September 22, 2016. IMPRESSION: Bilateral pleural effusions worse on the left than on the right. Interstitial edema is improved.
--- NOTE | 2016-10-01 09:18 | ED ---
Progress - Progress Note Progress Note: Pt's urine reveals gram neg bacilli - pt started on bactrim - sens pending - no med change at this time. Re-Evaluation - Re-Evaluation First Eval Re-Evaluation Time: 00:02 Change: Improved Comment: Discussed CXR and lab findings with the pt. Course/Dx - Diagnoses Provider Diagnoses: UTI (urinary tract infection)
--- NOTE | 2016-10-02 14:23 | PN ---
Progress Note - Progress Note Date of Service: 09/28/16 Note: Patient was diagnosed and treated for UTI. Was treated with Bactrim. Culture results show susceptibility to Bactrim. No further change or treatment needed at this time. If symptoms persist or return bacteria is also susceptible to Cipro.
== END 2016-09-29 03:50 | disposition home or self-care (01) ==
LOC: ED 21:12
DX: N39.0 Urinary tract infection, site not specified (principal); R06.02 Shortness of breath; R11.10 Vomiting, unspecified; R19.7 Diarrhea, unspecified
CPT/HCPCS: 36415; 71020; 80053; 81003; 81015; 83605; 83735; 85025; 85610; 87077; 87086; 87186; 93005; 96374; 99283; A9270-GY; J2405

== ENCOUNTER 2016-10-16 13:24 | Emergency (ER) | payer MEDICARE, BC | END 2016-10-16 14:38 | disposition left against medical advice (07) | LOC: UCEAST 13:24 | DX: N39.9 Disorder of urinary system, unspecified (principal); Z53.21 Procedure and treatment not carried out due to patient leaving prior to being seen by health care provider ==

== ENCOUNTER 2016-10-16 14:17 | Emergency (ER) | payer MEDICARE, BC ==
[2016-10-16 17:46] LABS: Hematocrit 26 % (35-47); Hemoglobin 8.4 g/dl (12.0-16.0); Mean Corpuscular HGB Conc 32 g/dl (31-36); Mean Corpuscular Hemoglobin 34 pg (27-31); Mean Corpuscular Volume 104 fL (80-97); Mean Platelet Volume 7 um3 (7.4-10.4); Red Cell Distribution Width 18 % (10.5-15); White Blood Count 8.6 10^3/ul (3.5-10.8)
[2016-10-16 18:02] LABS: Albumin 3.1 g/dL (3.2-5.2); BUN/Creatinine Ratio 20.9 (8-20); Calcium 7.2 mg/dL (8.6-10.3); EGFR African American 50.6 (>60); EGFR Non-African American 39.4 (>60); Globulin 3.9 g/dL (2-4); Potassium 4.2 mmol/L (3.5-5.0); Total Bilirubin 0.2 mg/dL (0.2-1.0)
--- NOTE | 2016-10-16 18:13 | RAD ---
INDICATION: Short breath COMPARISON: September 28, 2016 TECHNIQUE: PA and lateral dual-energy views were obtained. FINDINGS: Bones/Soft Tissues: There are no acute bony findings. Cardiomediastinal: The cardiomediastinal silhouette is normal. The central pulmonary vessels are mildly prominent Lungs: There is bibasilar airspace disease. This likely compression atelectasis. There is mild worsening on the right Pleura: There are bilateral pleural effusions. Left-sided effusion slightly smaller. Other: None IMPRESSION: MINOR INTERSTITIAL EDEMA. BIBASILAR AIRSPACE DISEASE WITH MILD WORSENING. BILATERAL PLEURAL EFFUSIONS.
[2016-10-16 19:17] LABS: Urine Bacteria 1+ (Absent); Urine Bilirubin Negative (Negative); Urine Glucose Negative (Negative); Urine Nitrite Negative (Negative)
[2016-10-16] MEDS ORDERED: Levofloxacin TAB* 250 MG PO ONE (20:16)
--- NOTE | 2016-10-16 20:19 | ED ---
Golden Corbin Benjamin, scribed for Lucia Navarro MD on 10/16/16 at 1746 . Shortness of Breath - HPI Summary HPI Summary: 85yo c/o intermittent diarrhea for 10 days with chest pressure and SOB. Pt also reports anxiety and that her anxiety triggers her chest pressure. Pt has hx of pleural effusion and has a lung catheter placed with a locke. Pt also has bladder CA, which pt had gone through chemo and is now on immunotherapy. Pt was recently dxed with bladder infection, which pt is on amoxicillin now. Other PMHx include DM, HTN, and CAD. Pt is on 2L oxygen at home. - History of Current Complaint Chief Complaint: EDGeneral Time Seen by Provider: 10/16/16 16:52 Hx Obtained From: Patient, Family/Linux Vmware Administrator - family Onset/Duration: Lasting Days - 10 days, Still Present Timing: Constant Current Severity: Mild Dyspnea At: Rest Aggrevating Factors: Nothing Alleviating Factors: Oxygen Associated Signs & Symptoms: Chest Pain Unrelated to Cough - chest pressure - Allergy/Home Medications Allergies/Adverse Reactions: Allergies Allergy/AdvReac Type Severity Reaction Status Date / Time Iodine Allergy Severe Anaphylatic Verified 09/13/16 06:54 Shock Home Medications: Home Medications Ascorbic Acid TAB* [Vitamin C TAB*] 500 mg PO DAILY 10/16/16 [History Confirmed 10/16/16] Cholecalciferol TAB* [Vitamin D TAB*] 1,000 unit PO DAILY 10/16/16 [History Confirmed 10/16/16] Ferrous Sulfate TAB* 325 mg PO QAM 10/16/16 [History Confirmed 10/16/16] Melatonin (NF) [Meladox] 3 mg PO BEDTIME 10/16/16 [History Confirmed 10/16/16] Promethazine TAB* [Phenergan TAB*] 25 mg PO Q6H PRN 10/16/16 [History Confirmed 10/16/16] PMH/Surg Hx/FS Hx/Imm Hx Endocrine/Hematology History: Reports: Hx Diabetes - TYPE 2, Hx Thyroid Disease , Hx Anemia Comment Only: Other Endocrine/Hematological Disorders - anemia Cardiovascular History: Reports: Hx Coronary Artery Disease, Hx Hypercholesterolemia - HDL, Hx Hypertension, Other Cardiovascular Problems/ Disorders - CARDIAC CATH 2010, CAROTID ENDARTERECTOMY Denies: Hx Angina, Hx Myocardial Infarction, Hx Valvular Heart Disease Respiratory History: Reports: Other Respiratory Problems/Disorders - bladder cancer, multiple pleural effusions Denies: Hx Asthma, Hx Chronic Obstructive Pulmonary Disease (COPD) GI History: Denies: Hx Ulcer Comment Only: Other GI Disorders - cholecystectomy History: Reports: Other Problems/Disorders - carcinoma of the left kidney Denies: Hx Renal Disease Sensory History: Reports: Hx Cataracts, Hx Contacts or Glasses, Hx Vision Problem Denies: Hx Deafness, Hx Hearing Aid Opthamlomology History: Reports: Hx Cataracts, Hx Contacts or Glasses, Hx Vision Problem Psychiatric History: Reports: Hx Anxiety - Cancer History Cancer Type, Location and Year: 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, back, lymph nodes Hx Chemotherapy: No Hx Radiation Therapy: No - Surgical History Surgery Procedure, Year, and Place: carotid artery cleared; GB removed; 2 cardiac caths, mediaport rt chest Hx Anesthesia Reactions: No Infectious Disease History: No Infectious Disease History: Reports: Hx Shingles - a while ago Denies: Hx Clostridium Difficile, Hx Hepatitis, Hx Human Immunodeficiency Virus (HIV), Hx of Known/Suspected MRSA, Hx Tuberculosis, Hx Known/Suspected VRE , Hx Known/Suspected VRSA, History Other Infectious Disease, Traveled Outside the [place] in Last 30 Days - Family History Known Family History: Positive: Hypertension, Other - No abd issues Negative: Diabetes - Social History Occupation: Retired Lives: With Family Alcohol Use: None Hx Substance Use: No Substance Use Type: Reports: None Hx Tobacco Use: No Smoking Status (MU): Never Smoked Tobacco Review of Systems Constitutional: Negative Eyes: Negative ENT: Negative Positive: Chest Pain - chest pressure Positive: Shortness Of Breath. Negative: Cough Positive: Diarrhea. Negative: Abdominal Pain, Vomiting, Nausea Genitourinary: Negative Musculoskeletal: Negative Skin: Negative Neurological: Negative Positive: Anxious All Other Systems Reviewed And Are Negative: Yes Physical Exam Triage Information Reviewed: Yes Vital Signs On Initial Exam: Initial Vitals Temp Pulse Resp BP Pulse Ox 98.6 F 65 15 112/50 99 10/16/16 14:23 10/16/16 14:23 10/16/16 14:23 10/16/16 14:23 10/16/16 14:23 Vital Signs Reviewed: Yes Appearance: Positive: Well-Appearing, No Pain Distress, Well-Nourished Skin: Positive: Warm, Skin Color Reflects Adequate Perfusion, Dry Head/Face: Positive: Normal Head/Face Inspection Eyes: Positive: EOMI, GADIEL. Negative: Conjunctiva Clear - pale ENT: Positive: Normal ENT inspection Neck: Positive: Supple, Nontender Respiratory/Lung Sounds: Positive: Clear to Auscultation, Decreased Breath Sounds Cardiovascular: Positive: RRR Abdomen Description: Positive: Nontender, Soft Bowel Sounds: Positive: Present Musculoskeletal: Positive: Strength/ROM Intact, Edema Left, Edema Right Neurological: Positive: Sensory/Motor Intact, Alert, Oriented to Person Place, Time, CN Intact II-III Psychiatric: Positive: Affect/Mood Appropriate - Burke Coma Scale Coma Scale Total: 15 Diagnostics - Vital Signs Vital Signs Temp Pulse Resp BP Pulse Ox 10/16/16 17:30 114/99 10/16/16 15:43 97.3 F 64 17 93/40 99 10/16/16 14:23 98.6 F 65 15 112/50 99 - Laboratory Lab Results: Lab Results 10/16/16 10/16/16 10/16/16 Range/Units 17:37 17:37 17:37 WBC 8.6 (3.5-10.8) 10^3/ul RBC 2.50 L (4.0-5.4) 10^6/ul Hgb 8.4 L (12.0-16.0) g/dl Hct 26 L (35-47) % MCV 104 H (80-97) fL MCH 34 H (27-31) pg MCHC 32 (31-36) g/dl RDW 18 H (10.5-15) % Plt Count 278 (150-450) 10^3/ul MPV 7 L (7.4-10.4) um3 Neut % (Auto) 65.0 (38-83) % Lymph % (Auto) 23.1 L (25-47) % Hand % (Auto) 7.3 (1-9) % Eos % (Auto) 3.3 (0-6) % Baso % (Auto) 1.3 (0-2) % Absolute Neuts (auto) 5.6 (1.5-7.7) 10^3/ul Absolute Lymphs (auto) 2.0 (1.0-4.8) 10^3/ul Absolute Monos (auto) 0.6 (0-0.8) 10^3/ul Absolute Eos (auto) 0.3 (0-0.6) 10^3/ul Absolute Basos (auto) 0.1 (0-0.2) 10^3/ul Absolute Nucleated RBC 0 10^3/ul Nucleated RBC % 0 Sodium 134 (133-145) mmol/L Potassium 4.2 (3.5-5.0) mmol/L Chloride 101 (101-111) mmol/L Carbon Dioxide 27 (22-32) mmol/L Anion Gap 6 (2-11) mmol/L BUN 27 H (6-24) mg/dL Creatinine 1.29 H (0.51-0.95) mg/dL Est GFR ( Amer) 50.6 (>60) Est GFR (Non-Af Amer) 39.4 (>60) BUN/Creatinine Ratio 20.9 H (8-20) Glucose 188 H (70-100) mg/dL Lactic Acid 1.8 (0.5-2.0) mmol/L Calcium 7.2 L (8.6-10.3) mg/dL Total Bilirubin 0.20 (0.2-1.0) mg/dL AST 11 L (13-39) U/L ALT 6 L (7-52) U/L Alkaline Phosphatase 87 (34-104) U/L Troponin I 0.00 (<0.04) ng/mL Total Protein 7.0 (6.4-8.9) g/dL Albumin 3.1 L (3.2-5.2) g/dL Globulin 3.9 (2-4) g/dL Albumin/Globulin Ratio 0.8 L (1-3) Urine Color Urine Appearance Urine pH (5-9) Ur Specific [place] (1.010-1.030) Urine Protein (Negative) Urine Ketones (Negative) Urine Blood (Negative) Urine Nitrate (Negative) Urine Bilirubin (Negative) Urine Urobilinogen (Negative) Ur Leukocyte Esterase (Negative) Urine WBC (Auto) (Absent) Urine RBC (Auto) (Absent) Ur Squamous Epith Cells (Absent) Urine Bacteria (Absent) Urine Glucose (Negative) Urine Ascorbic Acid (Negative) 10/16/16 Range/Units 18:44 WBC (3.5-10.8) 10^3/ul RBC (4.0-5.4) 10^6/ul Hgb (12.0-16.0) g/dl Hct (35-47) % MCV (80-97) fL MCH (27-31) pg MCHC (31-36) g/dl RDW (10.5-15) % Plt Count (150-450) 10^3/ul MPV (7.4-10.4) um3 Neut % (Auto) (38-83) % Lymph % (Auto) (25-47) % Hand % (Auto) (1-9) % Eos % (Auto) (0-6) % Baso % (Auto) (0-2) % Absolute Neuts (auto) (1.5-7.7) 10^3/ul Absolute Lymphs (auto) (1.0-4.8) 10^3/ul Absolute Monos (auto) (0-0.8) 10^3/ul Absolute Eos (auto) (0-0.6) 10^3/ul Absolute Basos (auto) (0-0.2) 10^3/ul Absolute Nucleated RBC 10^3/ul Nucleated RBC % Sodium (133-145) mmol/L Potassium (3.5-5.0) mmol/L Chloride (101-111) mmol/L Carbon Dioxide (22-32) mmol/L Anion Gap (2-11) mmol/L BUN (6-24) mg/dL Creatinine (0.51-0.95) mg/dL Est GFR ( Amer) (>60) Est GFR (Non-Af Amer) (>60) BUN/Creatinine Ratio (8-20) Glucose (70-100) mg/dL Lactic Acid (0.5-2.0) mmol/L Calcium (8.6-10.3) mg/dL Total Bilirubin (0.2-1.0) mg/dL AST (13-39) U/L ALT (7-52) U/L Alkaline Phosphatase (34-104) U/L Troponin I (<0.04) ng/mL Total Protein (6.4-8.9) g/dL Albumin (3.2-5.2) g/dL Globulin (2-4) g/dL Albumin/Globulin Ratio (1-3) Urine Color Elaine Urine Appearance Cloudy Urine pH 5.0 (5-9) Ur Specific [place] 1.016 (1.010-1.030) Urine Protein Negative (Negative) Urine Ketones Negative (Negative) Urine Blood Negative (Negative) Urine Nitrate Negative (Negative) Urine Bilirubin Negative (Negative) Urine Urobilinogen Negative (Negative) Ur Leukocyte Esterase 2+ H (Negative) Urine WBC (Auto) 2+(11-20/hpf) H (Absent) Urine RBC (Auto) Absent (Absent) Ur Squamous Epith Cells Present H (Absent) Urine Bacteria 1+ H (Absent) Urine Glucose Negative (Negative) Urine Ascorbic Acid * H (Negative) Result Diagrams: 10/16/16 17:37 10/16/16 17:37 Lab Statement: Any lab studies that have been ordered have been reviewed, and results considered in the medical decision making process. - Radiology CXR Xray Interpretation: Positive (See Comments) - IMPRESSION: MINOR INTERSTITIAL EDEMA. BIBASILAR AIRSPACE DISEASE WITH MILD WORSENING. BILATERAL PLEURAL EFFUSIONS. Radiology Interpretation Completed By: Radiologist - EKG 0601. Cardiac Rate: NL - 61bpm EKG Rhythm: Sinus Rhythm ST Segment: Normal Ectopy: None EKG Comparison: No Significant Change - 09/28/16. Course/Dx - Course Course Of Treatment: Reviewed pt's medications list and allergies. Blood pressure noted. 85 yo female with loose stools and generally not feeling well urine shows infection and cxr slight increase in consolidation on rt will treat with one dose of levaquin po and they will f/u with their oncologist in the am - Diagnoses Provider Diagnoses: UTI (urinary tract infection) Discharge - Discharge Plan Condition: Stable Disposition: HOME Prescriptions: Levofloxacin TAB* [Levaquin TAB*] 750 mg PO DAILY #6 tab Referrals: Kevin Burkett MD [Primary Care Provider] - The documentation as recorded by the Golden mcdaniels Benjamin accurately reflects the service I personally performed and the decisions made by me, Lucia Navarro MD.
[2016-10-16 20:49] VITALS: BP 148/50
== END 2016-10-16 20:50 | disposition home or self-care (01) ==
LOC: ED 14:17
DX: N39.0 Urinary tract infection, site not specified (principal); R19.7 Diarrhea, unspecified; R06.02 Shortness of breath; R07.9 Chest pain, unspecified; R05 Cough; F41.9 Anxiety disorder, unspecified
CPT/HCPCS: 36415; 71020; 80053; 81003; 81015; 83605; 84484; 85025; 87086; 93005; 99283; A9270-GY

== ENCOUNTER 2016-10-31 14:19 | Emergency (ER) | payer MEDICARE, BC ==
[2016-10-31 14:49] VITALS: BP 124/57
--- NOTE | 2016-10-31 18:20 | UC ---
Anuja Corbin Thomas, scribed for Adelita Cuevas DO on 10/31/16 at 1530 . Complaint Female HPI - HPI Summary HPI Summary: The pt is a 85 y/o F accompanied by her son presenting to [facility] with concerns that she has a bladder infection. 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 She also has lifelong anxiety. Yesterday, the patients home health aide asked the patient what was the the color of her urine and if the patient had any urinary symptoms. The patients son reports that she felt anxious about these questions about her urine, prompting a visit to [facility]. Per son, this anxiety is typical. Patient was seen in [facility] on 09/28 with complaints of SOB. It appears that the patient was found to have WBC in her urine along with blood and leukocyte esterase as an incidental finding in the w/u of dyspnea. Patient was diagnosed and treated with Bactrim. After leaving the hospital, the patient called her oncologist at [facility] to make sure that Bactrim was the right medicine for her, and [facility] changed her treatment to Levaquin x 10 days. Patient was then seen for SOB on 10/16/16 at [facility], where her UA was negative. Again, patient was treated with Levaquin x 6 days for a UTI. Patient reports that every day her home health nurse comes and asks her questions about her urine. This makes the patient nervous, so since she was already here for an appointment with oncology, she decided to stop in and have her urine checked. Patient denies pain with urination, changes in urine color/odor/frequency, N/V/D , abd pain, back pain, flank pain, fevers, chills, sweats, recent confusion, and unsteady gait. So basically the patient has no symptoms right now but is coming in to have her urine checked because hearing the nurse ask about her urine is aggravating her anxiety. She is not having thoughts of hurting herself or other people. Patient also reports that she has anxiety with regards to other aspects of her health. Her biggest concern is obviously her bladder cancer and her treatments that she must undergo. She also reports that her pain medicine is giving her constipation and the medicine she is taking for anxiety and pain are causing her to sleep more than usual. At this time, the patient additionally c/o constipation (she is taking Oxycotin) , excessive sleeping (the past week), depression (attributed to the treatments) , and left shoulder pain (attributed to metastasis). PMHx: DM, pleural effusion , thyroid disease, anemia, CAD, HLD, HTN, and bladder CA. PSHx: cardiac catheter 2011, carotid endarterectomy, cholecystectomy, and Mediaport. SHx: no smoking, no alcohol use, and no illicit drug use. FHx: HTN and CA. She is scheduled for an infusion tomorrow with Dr. Thomason. She is on home oxygen. When asked if she is in hospice, when it gets to that business that is what I dont want to think about. - History Of Current Complaint Chief Complaint: UCGU Stated Complaint: URINARY ISSUE Time Seen by Provider: 10/31/16 14:45 Hx Obtained From: Patient, Family/Kidney Trimmer - son in room ?: No Onset/Duration: Sudden Onset, Still Present Timing: Constant Severity Currently: None Character: Not Applicable Aggravating Factor(s): Nothing Alleviating Factor(s): Nothing Associated Signs And Symptoms: Negative: Fever, Back Pain, Vaginal Bleeding/ Discharge, Nausea, Vomiting(# Of Episodes =) - Allergies/Home Medications Allergies/Adverse Reactions: Allergies Allergy/AdvReac Type Severity Reaction Status Date / Time Iodine Allergy Severe Anaphylatic Verified 10/31/16 14:32 Shock Home Medications: Home Medications Multiple Vitamins W/ Minerals [Icaps Lutein & Zeaxanthin] 1 tab PO 10/31/16 [ History] Omeprazole [Prilosec] 20 mg PO 10/31/16 [History] Ondansetron [Zofran 4 MG Odt] 4 mg PO PRN 10/31/16 [History] l-Methylfolate W/ Vitamin B6-V [Foltanx] 1 tab PO 10/31/16 [History] PMH/Surg Hx/FS Hx/Imm Hx Previously Healthy: No Endocrine History: Diabetes, Thyroid Disease Cardiovascular History: Cardiac Disease, Hypertension Respiratory History: Other - Pleural effusion Other Respiratory History: peural effusions Cancer History: Other - Bladder cancer with metastases to liver, back, kidney, sternum, and lymph nodes Other Cancer History: Bladder cancer with metastases to liver, back, kidney, sternum, and lymph n - Surgical History Surgical History: Yes Surgery Procedure, Year, and Place: carotid artery cleared; GB removed; 2 cardiac caths, mediaport rt chest, pleurex catheter - Family History Known Family History: Positive: Hypertension, Other - POS: CA Negative: Cardiac Disease, Diabetes - Social History Occupation: Retired Lives: With Family Alcohol Use: None Substance Use Type: None Smoking Status (MU): Never Smoked Tobacco - Immunization History Most Recent Influenza Vaccination: Son reports she got this season Most Recent Tetanus Shot: UNSURE Most Recent Pneumonia Vaccination: HAS HAD, UNSURE DATE Review of Systems Constitutional: Negative Skin: Negative Eyes: Negative ENT: Negative Respiratory: Negative Cardiovascular: Negative Gastrointestinal: Other - POS: constipation (she is taking Oxycodone) Genitourinary: Other - POS: concern over having a bladder infection; NEG: any urinary symtpoms Motor: Negative Neurovascular: Negative Musculoskeletal: Other: - POS: L shoulder pain (attributed to metastasis) Neurological: Negative Psychological: Depressed - attributed to her cancer treatments., Other - POS: anxiety over having a bladder infection, excessive sleeping (the past week) All Other Systems Reviewed And Are Negative: Yes Physical Exam Triage Information Reviewed: Yes Appearance: No Pain Distress, Well-Nourished, Ill-Appearing - chronic Vital Signs: Initial Vital Signs Temp 98.0 F 10/31/16 14:44 Pulse 62 10/31/16 14:44 Resp 18 10/31/16 14:44 BP 124/57 10/31/16 14:44 Pulse Ox 100 10/31/16 14:44 Vital Signs Reviewed: Yes Eyes: Positive: Conjunctiva Clear. Negative: Discharge ENT: Positive: Hearing grossly normal. Negative: Muffled/hoarse voice Neck exam: Normal Neck: Positive: Supple Respiratory: Positive: Lungs clear, Normal breath sounds, No respiratory distress, No accessory muscle use Cardiovascular: Positive: RRR, No Murmur Abdomen Description: Positive: Nontender, Soft. Negative: CVA Tenderness (R), CVA Tenderness (L), Distended, Guarding, Other: - NEG: CVA tenderness Bowel Sounds: Positive: Present Musculoskeletal Exam: Normal Neurological: Positive: Alert, Muscle Tone Normal Psychological Exam: Normal Psychological: Positive: Age Appropriate Behavior Skin Exam: Normal Skin: Positive: Other - Warm, dry, normal color - Additional Comments She is chronically ill. She is on oxygen and in a wheelchair. She is in no acute distress. Complaint Female Dx - Course Course Of Treatment: The pt is a 85 y/o F accompanied by her son presenting to [facility] with concerns that she has a bladder infection. 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 She also has lifelong anxiety. Yesterday, the patients home health aide asked the patient what was the the color of her urine and if the patient had any urinary symptoms. The patients son reports that she felt anxious about these questions about her urine, prompting a visit to [facility]. Per son , this anxiety is typical. Patient was seen in [facility] on 09/28 with complaints of SOB. It appears that the patient was found to have WBC in her urine along with blood and leukocyte esterase as an incidental finding. Patient was diagnosed and treated with Bactrim. After leaving the hospital, the patient called her oncologist at [facility] to make sure that Bactrim was the right medicine for her, and [facility] changed her treatment to Levaquin x 10 days. Patient was then seen for SOB on 10/16/16 at [facility], where her UA was negative. Again, patient was treated with Levaquin x 6 days for a UTI, although no symptoms and no lab findings were present. Patient reports that every day her home health nurse comes and asks her questions about her urine. This makes the patient nervous, so since she was already here for an appointment with oncology , she decided to stop in and have her urine checked. Patient denies pain with urination, changes in urine color/odor/frequency, N/V/D, abd pain, back pain, flank pain, fevers, chills, sweats, recent confusion, and unsteady gait. So basically the patient has no symptoms right now but is coming in to have her urine checked because hearing the nurse ask about her urine is aggravating her anxiety. She is not having thoughts of hurting herself or other people. Patient also reports that she has anxiety with regards to other aspects of her health. Her biggest concern is obviously her bladder cancer and her treatments that she must undergo. She also reports that her pain medicine is giving her constipation and the medicine she is taking for anxiety and pain are causing her to sleep more than usual. At this time, the patient additionally c/o constipation (she is taking Oxycodone), excessive sleeping (the past week), depression (attributed to the treatments), and left shoulder pain (attributed to metastasis). PMHx: DM, pleural effusion, thyroid disease, anemia, CAD, HLD, HTN, and bladder CA. PSHx: cardiac catheter 2011, carotid endarterectomy, cholecystectomy, and Mediaport. SHx: no smoking, no alcohol use, and no illicit drug use. FHx: HTN and CA. She is scheduled for an infusion tomorrow with Dr. Thomason. She is on home oxygen. When asked if she is in hospice, when it gets to that business that is what I dont want to think about. She is not taking a probiotic supplement. . UA shows 1+ protein, 3+ blood, and 1+ leukocyte esterase. The patient was diagnosed with constipation, hematuria, and anxiety. The patient will be discharged home. She was instructed to treat her constipation with prunes and psyllium husk, to go outside from time to time. She was also instructed to go to the emergency room if she develops pain with urination, abdominal pain, back pain, nausea, vomiting, fever, instability on your feet, or if she feels acute confusion. I am sending urine for culture. Although pt's son mentioned the use of oxytin for pain seconday to bone mets. however, med was not found on med list. - Differential Dx/Diagnosis Provider Diagnoses: Anxiety, Hematuria, Constipation. Discharge - Discharge Plan Condition: Stable Disposition: HOME Patient Education Materials: Constipation (ED), Hematuria (ED), Anxiety (ED) Referrals: Kevin Burkett MD [Primary Care Provider] - 2 Days Additional Instructions: Try to treat your constipation with stewed prunes and psyllium husk in addition to Senna. Try to go outside from time to time. If you develop any symptoms of pain with urination, abdominal pain, back pain, nausea, vomiting, fever, instability on your feet, or feel acute confusion, go the emergency department. The documentation as recorded by the Anuja mcdaniels Thomas accurately reflects the service I personally performed and the decisions made by me, Adelita Cuevas DO.
--- NOTE | 2016-11-03 07:47 | UC ---
Progress - Progress Note Progress Note: PLS CALL PT. URINE CULTURE WITH A FEW COLONIES OF ENTEROCOCCUS. NOT CLEAR UTI. ANY URINARY SX? IF SO CAN TX WITH ABX. BE SURE TO F/U WITH PCP AND DR. MARROQUIN. Ana HORN MD
== END 2016-10-31 16:05 | disposition home or self-care (01) ==
LOC: UCEAST 14:19
DX: R31.9 Hematuria, unspecified (principal); K59.00 Constipation, unspecified; F41.9 Anxiety disorder, unspecified; C78.7 Secondary malignant neoplasm of liver and intrahepatic bile duct; C67.9 Malignant neoplasm of bladder, unspecified; C77.9 Secondary and unspecified malignant neoplasm of lymph node, unspecified; C79.89 Secondary malignant neoplasm of other specified sites; E11.9 Type 2 diabetes mellitus without complications; I25.10 Atherosclerotic heart disease of native coronary artery without angina pectoris; E07.9 Disorder of thyroid, unspecified; E78.5 Hyperlipidemia, unspecified
CPT/HCPCS: 81003; 87077; 87086; 87186; 99211; G0463

== ENCOUNTER 2016-11-03 21:43 | Emergency (ER) | payer MEDICARE, BC ==
[2016-11-03 23:16] LABS: Hematocrit 26 % (35-47); Hemoglobin 8.5 g/dl (12.0-16.0); Mean Corpuscular HGB Conc 33 g/dl (31-36); Mean Corpuscular Hemoglobin 32 pg (27-31); Mean Corpuscular Volume 98 fL (80-97); Mean Platelet Volume 7 um3 (7.4-10.4); Red Blood Count 2.63 10^6/ul (4.0-5.4); Red Cell Distribution Width 16 % (10.5-15); White Blood Count 7.5 10^3/ul (3.5-10.8)
[2016-11-03 23:32] LABS: Albumin 3.1 g/dL (3.2-5.2); BUN/Creatinine Ratio 20.3 (8-20); Calcium 8.2 mg/dL (8.6-10.3); EGFR African American 53.5 (>60); EGFR Non-African American 41.6 (>60); Globulin 3.9 g/dL (2-4); Potassium 4.2 mmol/L (3.5-5.0); Total Bilirubin 0.3 mg/dL (0.2-1.0)
[2016-11-03] MEDS ORDERED: ALPRAZolam TAB* 0.25 MG PO ONE (23:33)
[2016-11-04] MEDS ORDERED: ALPRAZolam TAB* 0.25 MG PO ONE (00:41)
[2016-11-04 01:19] LABS: Urine Bacteria Absent (Absent); Urine Bilirubin Negative (Negative); Urine Glucose 1+(50 mg/dL) (Negative); Urine Nitrite Negative (Negative)
[2016-11-04 01:42] VITALS: BP 140/60
[2016-11-04] MEDS ORDERED: Nitrofurantoin Macrocrystals* 100 MG CAP PO ONE ×2 (01:42→01:43)
--- NOTE | 2016-11-04 06:14 | ED ---
Carmita Corbin Rebecca, scribed for Deandre Gusman MD on 11/03/16 at 2229 . GI/ HPI - HPI Summary HPI Summary: Pt is an 85 y/o F who presents to ED c/o hematuria. Son reports that initially he noticed hematuria yesterday at approximately 1900 and today at 2100, the sx had worsened. Urine appears dark brown with bright red blood. Pt additionally c/ o diffuse myalgias, unable to localize the pain. When asked what is the most painful she states "I don't know, I just feel bad." Additionally c/o SOB. Denies fever, chills, dysuria, epistaxis. Pt was seen by [facility] 2 days ago during which a urine culture was done. Son reports he was called today with positive urine culture results. Dx bladder CA in May of this year for which she was on chemotharpy and is now on Keytruda. - History of Current Complaint Chief Complaint: EDGeneral Time Seen by Provider: 11/03/16 22:16 Stated Complaint: BLOOD IN URINE Hx Obtained From: Patient Onset/Duration: Still Present, Worse Since - Tonight at 2100 Current Severity: Moderate Pain Intensity: 5 Associated Signs and Symptoms: Positive: Hematuria. Negative: Dysuria Aggravating Factor(s): Nothing Alleviating Factor(s): Nothing - Additional Pertinent History Primary Care Physician: [id number] - Allergy/Home Medications Allergies/Adverse Reactions: Allergies Allergy/AdvReac Type Severity Reaction Status Date / Time Iodine Allergy Severe Anaphylatic Verified 10/31/16 14:32 Shock PMH/Surg Hx/FS Hx/Imm Hx Endocrine/Hematology History: Reports: Hx Diabetes - TYPE 2, Hx Thyroid Disease , Hx Anemia Comment Only: Other Endocrine/Hematological Disorders - anemia Cardiovascular History: Reports: Hx Coronary Artery Disease, Hx Hypercholesterolemia - HDL, Hx Hypertension, Other Cardiovascular Problems/ Disorders - CARDIAC CATH 2010, CAROTID ENDARTERECTOMY Denies: Hx Angina, Hx Myocardial Infarction, Hx Valvular Heart Disease Respiratory History: Reports: Other Respiratory Problems/Disorders - bladder cancer, multiple pleural effusions Denies: Hx Asthma, Hx Chronic Obstructive Pulmonary Disease (COPD) GI History: Denies: Hx Ulcer Comment Only: Other GI Disorders - cholecystectomy History: Reports: Other Problems/Disorders - carcinoma of the left kidney Denies: Hx Renal Disease Sensory History: Reports: Hx Cataracts, Hx Contacts or Glasses, Hx Vision Problem Denies: Hx Deafness, Hx Hearing Aid Opthamlomology History: Reports: Hx Cataracts, Hx Contacts or Glasses, Hx Vision Problem Psychiatric History: Reports: Hx Anxiety - Cancer History Cancer Type, Location and Year: 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, back, lymph nodes Hx Chemotherapy: No Hx Radiation Therapy: No - Surgical History Surgery Procedure, Year, and Place: carotid artery cleared; GB removed; 2 cardiac caths, mediaport rt chest, pleurex catheter Hx Anesthesia Reactions: No Infectious Disease History: Reports: Hx Shingles - a while ago Denies: Hx Clostridium Difficile, Hx Hepatitis, Hx Human Immunodeficiency Virus (HIV), Hx of Known/Suspected MRSA, Hx Tuberculosis, Hx Known/Suspected VRE , Hx Known/Suspected VRSA, History Other Infectious Disease, Traveled Outside the [place] in Last 30 Days - Family History Known Family History: Positive: Hypertension, Other - POS: CA Negative: Cardiac Disease, Diabetes - Social History Alcohol Use: None Hx Substance Use: No Substance Use Type: Reports: None Hx Tobacco Use: No Smoking Status (MU): Never Smoked Tobacco Review of Systems Negative: Fever, Chills Negative: Epistaxis Positive: Shortness Of Breath Positive: hematuria. Negative: dysuria All Other Systems Reviewed And Are Negative: Yes Physical Exam - Summary Physical Exam Summary: The patient is ill-appearing and appears as though she recently lost weight. The skin is pale with decreased skin turgor. HEENT: The head is normocephalic and atraumatic. The pupils are equal and reactive. The conjunctivae are clear and without drainage. Nares are patent and without drainage. Mouth reveals moist dry membranes and the throat is without erythema and exudate. Teeth are ill fitting. The external ears are intact. The ear canals are patent and without drainage. The tympanic membranes are intact. Neck is supple with full range of motion and non-tender. Respiratory: Chest is non-tender. Lungs are clear to auscultation and breath sounds are symmetrical and equal. Cardiovascular: Heart is regular rate and rhythm. There is no murmur or rub auscultated. Pulses are symmetrical and equal. Abdomen: The abdomen is soft and non-tender. There are normal bowel sounds heard in all four quadrants and there is no organomegaly palpated. Musculoskeletal: There is no back pain noted. Extremities are non-tender with full range of motion. There is decreased capillary refill of 3 seconds. There is some LE edema with no calf tenderness elicited. Neurological: Patient is alert and oriented to person, place and time. The patient has symmetrical motor strength in all four extremities. Psychiatric: The patient has an appropriate affect and does not exhibit any anxiety or depression. Triage Information Reviewed: Yes Vital Signs On Initial Exam: Initial Vitals Temp Pulse Resp BP Pulse Ox 98.1 F 68 18 110/80 100 11/03/16 21:45 11/03/16 21:45 11/03/16 21:45 11/03/16 21:45 11/03/16 21:45 Vital Signs Reviewed: Yes Diagnostics - Vital Signs Vital Signs Temp Pulse Resp BP Pulse Ox 11/03/16 21:45 98.1 F 68 18 110/80 100 - Laboratory Lab Results: Lab Results 11/03/16 11/03/16 11/03/16 Range/Units 23:06 23:06 23:06 WBC 7.5 (3.5-10.8) 10^3/ul RBC 2.63 L (4.0-5.4) 10^6/ul Hgb 8.5 L (12.0-16.0) g/dl Hct 26 L (35-47) % MCV 98 H (80-97) fL MCH 32 H (27-31) pg MCHC 33 (31-36) g/dl RDW 16 H (10.5-15) % Plt Count 371 (150-450) 10^3/ul MPV 7 L (7.4-10.4) um3 Neut % (Auto) 62.0 (38-83) % Lymph % (Auto) 27.7 (25-47) % [place] % (Auto) 9.3 H (1-9) % Eos % (Auto) 0.5 (0-6) % Baso % (Auto) 0.5 (0-2) % Absolute Neuts (auto) 4.6 (1.5-7.7) 10^3/ul Absolute Lymphs (auto) 2.1 (1.0-4.8) 10^3/ul Absolute Monos (auto) 0.7 (0-0.8) 10^3/ul Absolute Eos (auto) 0 (0-0.6) 10^3/ul Absolute Basos (auto) 0 (0-0.2) 10^3/ul Absolute Nucleated RBC 0.01 10^3/ul Nucleated RBC % 0.1 INR (Anticoag Therapy) (0.89-1.11) Sodium 129 L (133-145) mmol/L Potassium 4.2 (3.5-5.0) mmol/L Chloride 95 L (101-111) mmol/L Carbon Dioxide 26 (22-32) mmol/L Anion Gap 8 (2-11) mmol/L BUN 25 H (6-24) mg/dL Creatinine 1.23 H (0.51-0.95) mg/dL Est GFR ( Amer) 53.5 (>60) Est GFR (Non-Af Amer) 41.6 (>60) BUN/Creatinine Ratio 20.3 H (8-20) Glucose 208 H (70-100) mg/dL Lactic Acid 2.6 H* (0.5-2.0) mmol/L Calcium 8.2 L (8.6-10.3) mg/dL Total Bilirubin 0.30 (0.2-1.0) mg/dL AST 10 L (13-39) U/L ALT 7 (7-52) U/L Alkaline Phosphatase 91 (34-104) U/L Total Protein 7.0 (6.4-8.9) g/dL Albumin 3.1 L (3.2-5.2) g/dL Globulin 3.9 (2-4) g/dL Albumin/Globulin Ratio 0.8 L (1-3) Urine Color Urine Appearance Urine pH (5-9) Ur Specific [place] (1.010-1.030) Urine Protein (Negative) Urine Ketones (Negative) Urine Blood (Negative) Urine Nitrate (Negative) Urine Bilirubin (Negative) Urine Urobilinogen (Negative) Ur Leukocyte Esterase (Negative) Urine WBC (Auto) (Absent) Urine RBC (Auto) (Absent) Ur Squamous Epith Cells (Absent) Urine Bacteria (Absent) Urine Glucose (Negative) Urine Ascorbic Acid (Negative) 11/03/16 11/04/16 Range/Units 23:06 00:50 WBC (3.5-10.8) 10^3/ul RBC (4.0-5.4) 10^6/ul Hgb (12.0-16.0) g/dl Hct (35-47) % MCV (80-97) fL MCH (27-31) pg MCHC (31-36) g/dl RDW (10.5-15) % Plt Count (150-450) 10^3/ul MPV (7.4-10.4) um3 Neut % (Auto) (38-83) % Lymph % (Auto) (25-47) % [place] % (Auto) (1-9) % Eos % (Auto) (0-6) % Baso % (Auto) (0-2) % Absolute Neuts (auto) (1.5-7.7) 10^3/ul Absolute Lymphs (auto) (1.0-4.8) 10^3/ul Absolute Monos (auto) (0-0.8) 10^3/ul Absolute Eos (auto) (0-0.6) 10^3/ul Absolute Basos (auto) (0-0.2) 10^3/ul Absolute Nucleated RBC 10^3/ul Nucleated RBC % INR (Anticoag Therapy) 1.01 (0.89-1.11) Sodium (133-145) mmol/L Potassium (3.5-5.0) mmol/L Chloride (101-111) mmol/L Carbon Dioxide (22-32) mmol/L Anion Gap (2-11) mmol/L BUN (6-24) mg/dL Creatinine (0.51-0.95) mg/dL Est GFR ( Amer) (>60) Est GFR (Non-Af Amer) (>60) BUN/Creatinine Ratio (8-20) Glucose (70-100) mg/dL Lactic Acid (0.5-2.0) mmol/L Calcium (8.6-10.3) mg/dL Total Bilirubin (0.2-1.0) mg/dL AST (13-39) U/L ALT (7-52) U/L Alkaline Phosphatase (34-104) U/L Total Protein (6.4-8.9) g/dL Albumin (3.2-5.2) g/dL Globulin (2-4) g/dL Albumin/Globulin Ratio (1-3) Urine Color Afsaneh Urine Appearance Cloudy Urine pH 6.0 (5-9) Ur Specific [place] 1.011 (1.010-1.030) Urine Protein 1+(30 mg/dl) H (Negative) Urine Ketones Negative (Negative) Urine Blood 3+ H (Negative) Urine Nitrate Negative (Negative) Urine Bilirubin Negative (Negative) Urine Urobilinogen Negative (Negative) Ur Leukocyte Esterase 1+ H (Negative) Urine WBC (Auto) 3+(>20/hpf) H (Absent) Urine RBC (Auto) 3+(>10/hpf) H (Absent) Ur Squamous Epith Cells Present H (Absent) Urine Bacteria Absent (Absent) Urine Glucose 1+(50 mg/dl) H (Negative) Urine Ascorbic Acid * H (Negative) Result Diagrams: 11/03/16 23:06 11/03/16 23:06 Lab Statement: Any lab studies that have been ordered have been reviewed, and results considered in the medical decision making process. Re-Evaluation - Re-Evaluation First Eval Re-Evaluation Time: 01:40 Change: Improved Comment: Pt's sx have improved. Agree with D/C plan. GIGU Course/Dx - Course Assessment/Plan: Pt is an 85 y/o F who presents to ED c/o hematuria. Son reports that initially he noticed hematuria yesterday at approximately 1900 and today at 2100, the sx had worsened. Urine appears dark brown with bright red blood. Pt additionally c/o diffuse myalgias, unable to localize the pain. When asked what is the most painful she states "I don't know, I just feel bad." Additionally c/o SOB. Denies fever, chills, dysuria, epistaxis. Pt was seen by [facility] 2 days ago during which a urine culture was done. Son reports he was called today with positive urine culture results. Dx bladder CA in May of this year for which she was on chemotharpy and is now on Keytruda. Lactic acid of 2.6. UA reveals urine color: afsaenh, appearance: cloudy, protein: 1+, blood: 3 +, leukocyte esterase: 1+, WBC: 3+, RBC: 3+, glucose: 1+. In the ED course, pt was administered Macrodantin and Xanax which improved sx. She will be D/C to home with Dx of UTI and hematuria with a followup with her PCP and Rx for Macrodantin. She and her son understand and agree. - Diagnoses Differential Diagnoses - Female: Urinary Tract Infection, Other - anemia, bladder cancer Provider Diagnoses: Hematuria, UTI (urinary tract infection) Discharge - Discharge Plan Condition: Stable Disposition: HOME Prescriptions: Nitrofurantoin Macrocrystals* [Macrodantin*] 100 mg PO BID #12 cap Patient Education Materials: Hematuria (ED), Urinary Tract Infection in Women ( ED) Referrals: Kevin Burkett MD [Primary Care Provider] - 3 Days The documentation as recorded by the Carmita mcdaniels Rebecca accurately reflects the service I personally performed and the decisions made by Uzma kearney Drew, MD.
== END 2016-11-04 02:17 | disposition home or self-care (01) ==
LOC: ED 21:43
DX: N39.0 Urinary tract infection, site not specified (principal); R31.9 Hematuria, unspecified; E11.9 Type 2 diabetes mellitus without complications; R06.02 Shortness of breath; Z86.79 Personal history of other diseases of the circulatory system
CPT/HCPCS: 36415; 80053; 81003; 81015; 83605; 85025; 85610; 87077; 87086; 87186; 99283; A9270-GY

== ENCOUNTER 2016-12-09 02:37 | Inpatient (IN) | payer MEDICARE, BC ==
[2016-12-09] MEDS ORDERED: NS 0.9% 1000 ML* 1,000 ML IV ONE (03:02)
[2016-12-09 03:45] LABS: Hematocrit 23 % (35-47); Hemoglobin 7.5 g/dl (12.0-16.0); Mean Corpuscular HGB Conc 32 g/dl (31-36); Mean Corpuscular Hemoglobin 29 pg (27-31); Mean Corpuscular Volume 91 fL (80-97); Mean Platelet Volume 8 um3 (7.4-10.4); Red Blood Count 2.58 10^6/ul (4.0-5.4); Red Cell Distribution Width 17 % (10.5-15); White Blood Count 9.1 10^3/ul (3.5-10.8)
[2016-12-09 03:56] LABS: Albumin 2.9 g/dL (3.2-5.2); BUN/Creatinine Ratio 24.4 (8-20); Calcium 8.4 mg/dL (8.6-10.3); EGFR African American 55.4 (>60); EGFR Non-African American 43.1 (>60); Globulin 3.7 g/dL (2-4); Total Bilirubin 0.3 mg/dL (0.2-1.0); Total Protein 6.6 g/dL (6.4-8.9)
[2016-12-09 03:57] LABS: Potassium 5.1 mmol/L (3.5-5.0)
[2016-12-09 04:44] LABS: Urine Bacteria Absent (Absent); Urine Bilirubin Negative (Negative); Urine Glucose Negative (Negative); Urine Nitrite Negative (Negative)
--- NOTE | 2016-12-09 05:11 | ED ---
Murali Corbin Angela, scribed for Lucia Navarro MD on 12/09/16 at 0305 . Complex/Multi-Sys Presentation - HPI Summary HPI Summary: This pt is a 86 y/o female accompanied by son SAMIR presenting to [facility] with AMS after a fall today. Per EMS, pt fell as she was going to the bathroom. EMS states pt sleeps most of the day. Per son, 2 nights ago on Friday pt was arguing with him about taking her pills. PMHx: bladder CA, stage 4. 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 Hx From Patient Unobtainable Due To: Altered Mental Status - LEVEL 5 CAVEAT Onset/Duration: Sudden Onset Associated Signs And Symptoms: Positive: Confusion - Allergies/Home Medications Allergies/Adverse Reactions: Allergies Allergy/AdvReac Type Severity Reaction Status Date / Time Iodine Allergy Severe Anaphylatic Verified 10/31/16 14:32 Shock PMH/Surg Hx/FS Hx/Imm Hx Endocrine/Hematology History: Reports: Hx Diabetes - TYPE 2, Hx Thyroid Disease , Hx Anemia Comment Only: Other Endocrine/Hematological Disorders - anemia Cardiovascular History: Reports: Hx Coronary Artery Disease, Hx Hypercholesterolemia - HDL, Hx Hypertension, Other Cardiovascular Problems/ Disorders - CARDIAC CATH 2010, CAROTID ENDARTERECTOMY Denies: Hx Angina, Hx Myocardial Infarction, Hx Valvular Heart Disease Respiratory History: Reports: Other Respiratory Problems/Disorders - bladder cancer, multiple pleural effusions Denies: Hx Asthma, Hx Chronic Obstructive Pulmonary Disease (COPD) GI History: Denies: Hx Ulcer Comment Only: Other GI Disorders - cholecystectomy History: Reports: Other Problems/Disorders - carcinoma of the left kidney Denies: Hx Renal Disease Sensory History: Reports: Hx Cataracts, Hx Contacts or Glasses, Hx Vision Problem Denies: Hx Deafness, Hx Hearing Aid Opthamlomology History: Reports: Hx Cataracts, Hx Contacts or Glasses, Hx Vision Problem Psychiatric History: Reports: Hx Anxiety - Cancer History Cancer Type, Location and Year: 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, back, lymph nodes Hx Chemotherapy: No Hx Radiation Therapy: No - Surgical History Surgery Procedure, Year, and Place: carotid artery cleared; GB removed; 2 cardiac caths, mediaport rt chest, pleurex catheter Hx Anesthesia Reactions: No Infectious Disease History: Unable to Obtain/Confirm Infectious Disease History: Reports: Hx Shingles - a while ago Denies: Hx Clostridium Difficile, Hx Hepatitis, Hx Human Immunodeficiency Virus (HIV), Hx of Known/Suspected MRSA, Hx Tuberculosis, Hx Known/Suspected VRE , Hx Known/Suspected VRSA, History Other Infectious Disease, Traveled Outside the [place] in Last 30 Days - Family History Known Family History: Positive: Hypertension, Other - POS: CA Negative: Cardiac Disease, Diabetes - Social History Alcohol Use: None Hx Substance Use: No Substance Use Type: Reports: None Hx Tobacco Use: No Smoking Status (MU): Never Smoked Tobacco Review of Systems Positive: Other - left arm abrasions Neurological: Other - AMS All Other Systems Reviewed And Are Negative: No - Comments Additional Review of Systems Comments: LEVEL 5 CAVEAT - AMS Physical Exam Triage Information Reviewed: Yes Vital Signs On Initial Exam: Initial Vitals Temp Pulse Resp BP Pulse Ox 97 F 65 24 125/42 100 12/09/16 02:41 12/09/16 02:41 12/09/16 02:41 12/09/16 02:41 12/09/16 02:41 Vital Signs Reviewed: Yes Completion Of Physical Exam Limited Due To: Level 5 - altered mental status Appearance: Positive: No Pain Distress, Ill-Appearing Skin: Positive: Warm, Dry, Pale Eyes: Positive: EOMI, GADIEL, Other: - 1 cm hematoma on left orbit ENT: Positive: Pharynx normal, TMs normal Neck: Positive: Supple, Nontender Respiratory/Lung Sounds: Positive: Clear to Auscultation, Breath Sounds Present. Negative: Rales, Rhonchi, Wheezes Cardiovascular: Positive: RRR. Negative: Murmur, Rub, Other - gallop Abdomen Description: Positive: Nontender, Soft. Negative: Distended, Guarding, Other: - rebound Bowel Sounds: Positive: Present Musculoskeletal: Positive: Strength/ROM Intact. Negative: Edema Left, Edema Right Neurological: Positive: Sensory/Motor Intact, Alert, Oriented to Person Place, Time, CN Intact II-III Psychiatric: Positive: Affect/Mood Appropriate - [place] Coma Scale Coma Scale Total: 11 Diagnostics - Vital Signs Vital Signs Temp Pulse Resp BP Pulse Ox 12/09/16 02:41 97 F 65 24 125/42 100 - Laboratory Lab Results: Lab Results 12/09/16 12/09/1617 Range/Units 02:55 02:55 02:55 WBC 9.1 (3.5-10.8) 10^3/ul RBC 2.58 L (4.0-5.4) 10^6/ul Hgb 7.5 L (12.0-16.0) g/dl Hct 23 L (35-47) % MCV 91 (80-97) fL MCH 29 (27-31) pg MCHC 32 (31-36) g/dl RDW 17 H (10.5-15) % Plt Count 465 H (150-450) 10^3/ul MPV 8 (7.4-10.4) um3 Neut % (Auto) 67.2 (38-83) % Lymph % (Auto) 20.4 L (25-47) % [place] % (Auto) 9.4 H (1-9) % Eos % (Auto) 1.9 (0-6) % Baso % (Auto) 1.1 (0-2) % Absolute Neuts (auto) 6.1 (1.5-7.7) 10^3/ul Absolute Lymphs (auto) 1.9 (1.0-4.8) 10^3/ul Absolute Monos (auto) 0.9 H (0-0.8) 10^3/ul Absolute Eos (auto) 0.2 (0-0.6) 10^3/ul Absolute Basos (auto) 0.1 (0-0.2) 10^3/ul Absolute Nucleated RBC 0 10^3/ul Nucleated RBC % 0 INR (Anticoag Therapy) 1.16 H (0.89-1.11) APTT 28.4 (26.0-36.3) seconds Sodium (133-145) mmol/L Potassium (3.5-5.0) mmol/L Chloride (101-111) mmol/L Carbon Dioxide (22-32) mmol/L Anion Gap (2-11) mmol/L BUN (6-24) mg/dL Creatinine (0.51-0.95) mg/dL Est GFR ( Amer) (>60) Est GFR (Non-Af Amer) (>60) BUN/Creatinine Ratio (8-20) Glucose (70-100) mg/dL Lactic Acid (0.5-2.0) mmol/L Calcium (8.6-10.3) mg/dL Total Bilirubin (0.2-1.0) mg/dL AST (13-39) U/L ALT (7-52) U/L Alkaline Phosphatase (34-104) U/L Troponin I (<0.04) ng/mL Total Protein (6.4-8.9) g/dL Albumin (3.2-5.2) g/dL Globulin (2-4) g/dL Albumin/Globulin Ratio (1-3) Urine Color Urine Appearance Urine pH (5-9) Ur Specific [place] (1.010-1.030) Urine Protein (Negative) Urine Ketones (Negative) Urine Blood (Negative) Urine Nitrate (Negative) Urine Bilirubin (Negative) Urine Urobilinogen (Negative) Ur Leukocyte Esterase (Negative) Urine WBC (Auto) (Absent) Urine RBC (Auto) (Absent) Ur Squamous Epith Cells (Absent) Urine Bacteria (Absent) Urine Glucose (Negative) Urine Ascorbic Acid (Negative) Blood Type B Positive Antibody Screen Negative 12/09/16 12/09/16 12/09/16 Range/Units 02:55 02:55 04:23 WBC (3.5-10.8) 10^3/ul RBC (4.0-5.4) 10^6/ul Hgb (12.0-16.0) g/dl Hct (35-47) % MCV (80-97) fL MCH (27-31) pg MCHC (31-36) g/dl RDW (10.5-15) % Plt Count (150-450) 10^3/ul MPV (7.4-10.4) um3 Neut % (Auto) (38-83) % Lymph % (Auto) (25-47) % [place] % (Auto) (1-9) % Eos % (Auto) (0-6) % Baso % (Auto) (0-2) % Absolute Neuts (auto) (1.5-7.7) 10^3/ul Absolute Lymphs (auto) (1.0-4.8) 10^3/ul Absolute Monos (auto) (0-0.8) 10^3/ul Absolute Eos (auto) (0-0.6) 10^3/ul Absolute Basos (auto) (0-0.2) 10^3/ul Absolute Nucleated RBC 10^3/ul Nucleated RBC % INR (Anticoag Therapy) (0.89-1.11) APTT (26.0-36.3) seconds Sodium 130 L (133-145) mmol/L Potassium 5.1 H (3.5-5.0) mmol/L Chloride 100 L (101-111) mmol/L Carbon Dioxide 24 (22-32) mmol/L Anion Gap 6 (2-11) mmol/L BUN 29 H (6-24) mg/dL Creatinine 1.19 H (0.51-0.95) mg/dL Est GFR ( Amer) 55.4 (>60) Est GFR (Non-Af Amer) 43.1 (>60) BUN/Creatinine Ratio 24.4 H (8-20) Glucose 171 H (70-100) mg/dL Lactic Acid 1.3 (0.5-2.0) mmol/L Calcium 8.4 L (8.6-10.3) mg/dL Total Bilirubin 0.30 (0.2-1.0) mg/dL AST 19 (13-39) U/L ALT 19 (7-52) U/L Alkaline Phosphatase 151 H (34-104) U/L Troponin I 0.00 (<0.04) ng/mL Total Protein 6.6 (6.4-8.9) g/dL Albumin 2.9 L (3.2-5.2) g/dL Globulin 3.7 (2-4) g/dL Albumin/Globulin Ratio 0.8 L (1-3) Urine Color Yellow Urine Appearance Cloudy Urine pH 5.0 (5-9) Ur Specific [place] 1.015 (1.010-1.030) Urine Protein Negative (Negative) Urine Ketones Negative (Negative) Urine Blood 3+ H (Negative) Urine Nitrate Negative (Negative) Urine Bilirubin Negative (Negative) Urine Urobilinogen Negative (Negative) Ur Leukocyte Esterase Trace H (Negative) Urine WBC (Auto) 1+(6-10/hpf) H (Absent) Urine RBC (Auto) 3+(>10/hpf) H (Absent) Ur Squamous Epith Cells Present H (Absent) Urine Bacteria Absent (Absent) Urine Glucose Negative (Negative) Urine Ascorbic Acid * H (Negative) Blood Type Antibody Screen Result Diagrams: 12/09/16 02:55 12/09/16 02:55 Lab Statement: Any lab studies that have been ordered have been reviewed, and results considered in the medical decision making process. - Radiology Chest XR Xray Interpretation: Positive (See Comments) - small bilateral effusions improved from chest XR on October 16, 2016. Radiology Interpretation Completed By: ED Physician - CT Brain CT CT Interpretation: Positive (See Comments) - IMPRESSION: posterior right parietal lytic process is likely neoplasm, without fracture or intracranial hemorrhage. ED physician has reviewed this radiology report and agrees. CT Interpretation Completed By: Radiologist Cervical spine CT CT Interpretation: Positive (See Comments) - IMPRESSION: No fracture. Lytic lesions in the right parietal calvarium and right mandible, are presumably metastases. ED physician has reviewed this radiology report and agrees. CT Interpretation Completed By: Radiologist - EKG 0258 Cardiac Rate: NL EKG Rhythm: Sinus Rhythm EKG Interpretation: no Q waves. No ST elevations EKG Comparison: No Significant Change - No change to prior EKG on 10/16/16. Re-Evaluation - Re-Evaluation First Eval Re-Evaluation Time: 04:50 Comment: I discussed the CT and XR results with the pt's son. Complex Multi-Symp Course/Dx Course Of Treatment: 86 yo female who seemed off in the last 2 days (arguing with son about her oxygen etc) who fell tonight, with abrasions to left forearm and left scalp hematoma.here her labs are within her amy but she is too weak to get out of bed. Case was discussed with Dr. Kuo for admission - Diagnoses Provider Diagnoses: Altered mental state, Abrasions of multiple sites, Contusion Discharge - Discharge Plan Condition: Stable Disposition: ADMITTED TO [facility] Referrals: Kevin Burkett MD [Primary Care Provider] - The documentation as recorded by the Murali mcdaniels Angela accurately reflects the service I personally performed and the decisions made by me, Lucia Navarro MD.
--- NOTE | 2016-12-09 05:23 | HP ---
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 She is currently unreliable as a historian and so this information is obtained from her son, ED staff, & the available medical record. Over the past 2 days she has become progressively confused, arguing with her son about needing to take her morning medications in the middle of the night and not being able to comprehend why she shouldn't. She will complain of being hungry and then refuse to eat, etc. Tonight, her son was awoken by a thump and found her on the floor trying to get to the restroom, but going the wrong direction in the home. PMedHx transitional cell CA of L kidney, stg 4 DM2 PAOD HLD HTN hypothyroidism GERD depression Ambulatory Orders Nursing to reconcile. ALPRAZolam TAB* [Xanax TAB*] 0.25 mg PO TID PRN 11/05/13 Acetaminophen TAB* [Tylenol TAB*] 650 mg PO Q6HR PRN 11/05/13 Aspirin Low Dose CHEW TAB* [Aspirin Low Dose TAB*] 81 mg PO DAILY 11/05/13 Atenolol TAB* [Tenormin TAB* 25 MG] 25 mg PO QAM 11/05/13 Atenolol TAB* [Tenormin TAB* 50 MG] 50 mg PO BEDTIME 11/05/13 Isosorbide Mononitrate ER TAB* [Imdur ER TAB*] 30 mg PO QAM 11/05/13 Levothyroxine TAB* [Synthroid 100 MCG TAB*] 100 mcg PO DAILY 11/05/13 Escitalopram (NF) [Lexapro 5 mg (NF)] 5 mg PO DAILY 08/28/16 Metformin ER (NF) 500 mg PO BID WITH MEALS 08/28/16 Furosemide TAB* [Lasix TAB*] 20 mg PO BID 09/29/16 Senna TAB* [Senokot TAB*] 1 tab PO DAILY 09/29/16 l-Methylfolate W/ Vitamin B6-V [Foltanx] 1 tab PO DAILY 09/29/16 Ascorbic Acid TAB* [Vitamin C TAB*] 500 mg PO DAILY 10/16/16 Cholecalciferol TAB* [Vitamin D TAB*] 1,000 unit PO DAILY 10/16/16 Ferrous Sulfate TAB* 65 mg PO QAM 10/16/16 Melatonin (NF) [Meladox] 3 mg PO BEDTIME 10/16/16 Multiple Vitamins W/ Minerals [Icaps Lutein & Zeaxanthin] 1 tab PO 10/31/16 Omeprazole [Prilosec] 20 mg PO 10/31/16 Ondansetron [Zofran 4 MG Odt] 4 mg PO PRN 10/31/16 l-Methylfolate W/ Vitamin B6-V [Foltanx] 1 tab PO 10/31/16 Nitrofurantoin Macrocrystals* [Macrodantin*] 100 mg PO BID #12 cap 11/04/16 Allergies Iodine Allergy (Severe, Verified 10/31/16 14:32) Anaphylatic Shock PSurgHx R carotid endarterectomy cholecystectomy SocHx: no tobacco, occasional alcohol, no recreational drugs; , lives with family; full code status FamHx: positive for cancer ROS: as above, otherwise reviewed and all were negative vitals: Vital Signs Temp 36.1 C 12/09/16 02:41 Pulse 62 12/09/16 04:30 Resp 31 12/09/16 04:30 BP 115/49 12/09/16 04:30 Pulse Ox 97 12/09/16 04:30 Intake & Output 12/08/16 12/08/16 12/09/16 11:59 23:59 11:59 Weight 58.967 kg Constitutional: NAD, normally developed, well-nourished elderly white female HEENM: atraumatic; sclera/conjunctiva: non-icteric/clear; hearing: clinically mildly decreased; oropharynx: clear, mucosa tacky Neck: soft tissue: no nuchal rigidity; thyroid: normal Pulmonary: clear to auscultation bilaterally, good aeration, no accessory muscle use CV: RR/RR, normal S1S2, no carotid bruit, no jugular venous distention, 2+ B DP/ PT, no edema Abdominal: soft, non-distended, non-tender, no rebound/guarding/rigidity, normoactive bowel sounds, no hepatosplenomegaly or masses, no costovertebral angle tenderness Musculoskeletal: general: grossly intact, no palpable tenderness Integumental: normal appearance and texture of exposed skin Psychiatric orientation: somnolent, oriented to person and place, not time/situation affect: somnolent mood: acquiescent eye contact: poor content: unreliable responses: slowed insight: poor Testing: Lab Results 12/09/16 12/09/16 12/09/16 Range/Units 02:55 02:55 02:55 WBC 9.1 (3.5-10.8) 10^3/ul RBC 2.58 L (4.0-5.4) 10^6/ul Hgb 7.5 L (12.0-16.0) g/dl Hct 23 L (35-47) % MCV 91 (80-97) fL MCH 29 (27-31) pg MCHC 32 (31-36) g/dl RDW 17 H (10.5-15) % Plt Count 465 H (150-450) 10^3/ul MPV 8 (7.4-10.4) um3 Neut % (Auto) 67.2 (38-83) % Lymph % (Auto) 20.4 L (25-47) % Keith % (Auto) 9.4 H (1-9) % Eos % (Auto) 1.9 (0-6) % Baso % (Auto) 1.1 (0-2) % Absolute Neuts (auto) 6.1 (1.5-7.7) 10^3/ul Absolute Lymphs (auto) 1.9 (1.0-4.8) 10^3/ul Absolute Monos (auto) 0.9 H (0-0.8) 10^3/ul Absolute Eos (auto) 0.2 (0-0.6) 10^3/ul Absolute Basos (auto) 0.1 (0-0.2) 10^3/ul Absolute Nucleated RBC 0 10^3/ul Nucleated RBC % 0 INR (Anticoag Therapy) 1.16 H (0.89-1.11) APTT 28.4 (26.0-36.3) seconds Sodium (133-145) mmol/L Potassium (3.5-5.0) mmol/L Chloride (101-111) mmol/L Carbon Dioxide (22-32) mmol/L Anion Gap (2-11) mmol/L BUN (6-24) mg/dL Creatinine (0.51-0.95) mg/dL Est GFR ( Amer) (>60) Est GFR (Non-Af Amer) (>60) BUN/Creatinine Ratio (8-20) Glucose (70-100) mg/dL Lactic Acid (0.5-2.0) mmol/L Calcium (8.6-10.3) mg/dL Total Bilirubin (0.2-1.0) mg/dL AST (13-39) U/L ALT (7-52) U/L Alkaline Phosphatase (34-104) U/L Troponin I (<0.04) ng/mL Total Protein (6.4-8.9) g/dL Albumin (3.2-5.2) g/dL Globulin (2-4) g/dL Albumin/Globulin Ratio (1-3) Urine Color Urine Appearance Urine pH (5-9) Ur Specific [place] (1.010-1.030) Urine Protein (Negative) Urine Ketones (Negative) Urine Blood (Negative) Urine Nitrate (Negative) Urine Bilirubin (Negative) Urine Urobilinogen (Negative) Ur Leukocyte Esterase (Negative) Urine WBC (Auto) (Absent) Urine RBC (Auto) (Absent) Ur Squamous Epith Cells (Absent) Urine Bacteria (Absent) Urine Glucose (Negative) Urine Ascorbic Acid (Negative) Blood Type B Positive Antibody Screen Negative 12/09/16 12/09/16 12/09/16 Range/Units 02:55 02:55 04:23 WBC (3.5-10.8) 10^3/ul RBC (4.0-5.4) 10^6/ul Hgb (12.0-16.0) g/dl Hct (35-47) % MCV (80-97) fL MCH (27-31) pg MCHC (31-36) g/dl RDW (10.5-15) % Plt Count (150-450) 10^3/ul MPV (7.4-10.4) um3 Neut % (Auto) (38-83) % Lymph % (Auto) (25-47) % Keith % (Auto) (1-9) % Eos % (Auto) (0-6) % Baso % (Auto) (0-2) % Absolute Neuts (auto) (1.5-7.7) 10^3/ul Absolute Lymphs (auto) (1.0-4.8) 10^3/ul Absolute Monos (auto) (0-0.8) 10^3/ul Absolute Eos (auto) (0-0.6) 10^3/ul Absolute Basos (auto) (0-0.2) 10^3/ul Absolute Nucleated RBC 10^3/ul Nucleated RBC % INR (Anticoag Therapy) (0.89-1.11) APTT (26.0-36.3) seconds Sodium 130 L (133-145) mmol/L Potassium 5.1 H (3.5-5.0) mmol/L Chloride 100 L (101-111) mmol/L Carbon Dioxide 24 (22-32) mmol/L Anion Gap 6 (2-11) mmol/L BUN 29 H (6-24) mg/dL Creatinine 1.19 H (0.51-0.95) mg/dL Est GFR ( Amer) 55.4 (>60) Est GFR (Non-Af Amer) 43.1 (>60) BUN/Creatinine Ratio 24.4 H (8-20) Glucose 171 H (70-100) mg/dL Lactic Acid 1.3 (0.5-2.0) mmol/L Calcium 8.4 L (8.6-10.3) mg/dL Total Bilirubin 0.30 (0.2-1.0) mg/dL AST 19 (13-39) U/L ALT 19 (7-52) U/L Alkaline Phosphatase 151 H (34-104) U/L Troponin I 0.00 (<0.04) ng/mL Total Protein 6.6 (6.4-8.9) g/dL Albumin 2.9 L (3.2-5.2) g/dL Globulin 3.7 (2-4) g/dL Albumin/Globulin Ratio 0.8 L (1-3) Urine Color Yellow Urine Appearance Cloudy Urine pH 5.0 (5-9) Ur Specific [place] 1.015 (1.010-1.030) Urine Protein Negative (Negative) Urine Ketones Negative (Negative) Urine Blood 3+ H (Negative) Urine Nitrate Negative (Negative) Urine Bilirubin Negative (Negative) Urine Urobilinogen Negative (Negative) Ur Leukocyte Esterase Trace H (Negative) Urine WBC (Auto) 1+(6-10/hpf) H (Absent) Urine RBC (Auto) 3+(>10/hpf) H (Absent) Ur Squamous Epith Cells Present H (Absent) Urine Bacteria Absent (Absent) Urine Glucose Negative (Negative) Urine Ascorbic Acid * H (Negative) Blood Type Antibody Screen ECG, personally reviewed: NSR rate 63, no ischemia CXR, personally reviewed: small stable B pleural effusions, port L chest; no acute process CT brain WO, personally reviewed: IMPRESSION: Posterior right parietal lytic process is likely neoplasm, without fracture or intracranial hemorrhage. CT C-spine WO, personally reviewed: IMPRESSION: No fracture. Lytic lesions in the right parietal calvarium and right mandible, are presumably metastases. 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 presents w/ confusion & fall DIAGNOSIS & PLAN Primary confusion & lethargy : suspect 2nd UTI vs dehydration vs progression of cancer : IVFs : IV ceftriaxone : blood & urine CX : supportive care : son informed that without other cause, if she does not improve with above TX w /i 24-48h, she will likely not survive Secondary transitional cell CA of L kidney, stg 4 : consider oncology consult DM2 : NPO 2nd lethargy : bedside swallowing evaluation : Q4H glucometry : corrective insulin : update A1c PAOD : review meds once reconciled HLD : review meds once reconciled HTN : review meds once reconciled hypothyroidism : continue levothyroxine IV at 1/2 PO dose until able to take PO : TSH 12/04/2016 was 2.76 GERD : review meds once reconciled depression : review meds once reconciled Admission Rational: inpatient for confusion, dehydration, likely end-of-life care DVTp: heparin SQ & SCDs Code Status: HCP: sonManuelito [phone]
[2016-12-09] MEDS ORDERED: Acetaminophen SUPP* 650 MG SUPP PR PRN (07:20)
[2016-12-09] MEDS ORDERED: NS 0.9% 1000 ML* 1,000 ML IV SCH (07:30)
--- NOTE | 2016-12-09 07:46 | PN ---
Subjective Date of Service: 12/09/16 Interval History: Ms. Rush states that she feels terrible but only complains of being very hungry. She denies chest pain, SOB, nausea, or abdominal pain. Objective Active Medications: Acetaminophen (Tylenol Supp*) 650 mg TN Q6H PRN Famotidine (Pepcid Iv*) 20 mg IV SLOW PU BID JEREMI Sodium Chloride (Ns 0.9% 1000 Ml*) 1,000 mls @ 100 mls/hr IV PER RATE JEREMI Ceftriaxone Sodium 1,000 mg/ (Sodium Chloride) 50 mls @ 200 mls/hr IVPB Q24H JEREMI Insulin Human Lispro (Humalog*) 0 units SUBCUT Q4H JEREMI Levothyroxine Sodium (Synthroid Inj*) 50 mcg IV 0600 JEREMI Ondansetron HCl (Zofran Inj*) 4 mg IV Q6H PRN Vital Signs: Temp Pulse Resp BP Pulse Ox 97 F 58 17 121/46 100 12/09/16 02:41 12/09/16 06:30 12/09/16 06:30 12/09/16 06:30 12/09/16 06:30 Oxygen Devices in Use Now: None Appearance: Female sitting up in bed in NAD Eyes: No Scleral Icterus Ears/Nose/Mouth/Throat: Mucous Membranes Moist Neck: Trachea Midline Respiratory: Symmetrical Chest Expansion and Respiratory Effort, Clear to Auscultation Cardiovascular: NL Sounds; No Murmurs; No JVD, No Edema Abdominal: NL Sounds; No Tenderness; No Distention Lymphatic: No Cervical Adenopathy Extremities: No Edema Skin: No Rash or Ulcers Neurological: NL Muscle Strength and Tone, - - Alert, oriented Nutrition: Taking PO's Result Diagrams: 12/09/16 02:55 12/09/16 02:55 Additional Lab and Data: Vital Signs: Temp Pulse Resp BP Pulse Ox 97 F 58 17 121/46 100 12/09/16 02:41 12/09/16 06:30 12/09/16 06:30 12/09/16 06:30 12/09/16 06:30 Assess/Plan/Problems-Billing Assessment: Ms. Rush is an 86 yo female with a PMH of kidney cancer, DM, HTN, and HLD who was admitted on 12/08/16 after a fall with confusion for suspected UTI vs dehydration vs progression of cancer. - Patient Problems (1) UTI (urinary tract infection) Comment: - Trace LE, no bacteria. - Continue ceftriaxone for now, await cultures. (2) Diabetes Comment: - Continue lispro SSI coverage with meals. (3) HTN (hypertension) Comment: - BP well controlled. - Atenolol and furosemide. (4) Renal cell carcinoma Comment: - Dr. Thomason to see patient tomorrow to discuss palliative treatment options with family given patient's poor functional status. (5) Hypothyroidism Comment: - Continue levothyroxine. (6) Full code status Comment: - Family considering DNR/DNI but patient is currently full code. (7) DVT prophylaxis Comment: HSQ Status and Disposition: Inpatient. Family discussing options including returning home with additional assistance vs going to a [facility]. Family also considering hospice. analytical chemist and social work following.
--- NOTE | 2016-12-09 07:53 | RAD ---
HISTORY: Fall COMPARISONS: October 16, 2016 VIEWS: 1: frontal portable view of the chest at 3:24 AM FINDINGS: LINES AND TUBES: There is a right-sided chest port from internal jugular vein approach with the tip overlying the cavoatrial junction. CARDIOMEDIASTINAL SILHOUETTE: The cardiomediastinal silhouette is normal for portable technique. PLEURA: There are small bilateral pleural effusions. LUNG PARENCHYMA: There is hyperinflation. ABDOMEN: The upper abdomen is clear. There is no subphrenic gas. BONES AND SOFT TISSUES: There is remote left-sided rib fracture. IMPRESSION: 1. LINES AND TUBES ABOVE. 2. HYPERINFLATION. 3. SMALL BILATERAL PLEURAL EFFUSIONS.
--- NOTE | 2016-12-09 07:56 | RAD ---
HISTORY: Altered mental status, history of bladder cancer COMPARISONS: November 05, 2013 TECHNIQUE: Multiple contiguous axial CT scans were obtained of the head without intravenous contrast. FINDINGS: HEMORRHAGE/INFARCT: There is no hemorrhage or acute infarct. MASSES/SHIFT: There is no mass or shift. EXTRA-AXIAL SPACES: There are no extra-axial fluid collections. SULCI AND VENTRICLES: The sulci and ventricles are normal in size and position for the patient's stated age. CEREBRUM: There are no focal parenchymal abnormalities. BRAINSTEM: There are no focal parenchymal abnormalities. CEREBELLUM: There are no focal parenchymal abnormalities. VESSELS: The vessels are grossly normal. PARANASAL SINUSES: The paranasal sinuses are clear. ORBITS: The orbits are unremarkable. BONES AND SOFT TISSUE: There is a geographic lytic lesion of the right parietal scalp with associated soft tissue arthropathy. This is not clearly seen on the previous examination. OTHER: None IMPRESSION: 1. NO ACUTE INTRACRANIAL PATHOLOGY. 2. LYTIC LESION OF THE RIGHT PARIETAL SCALP, LIKELY METASTATIC DISEASE GIVEN THE HISTORY OF MALIGNANCY
--- NOTE | 2016-12-09 07:59 | RAD ---
HISTORY: Altered mental status, fall, history of bladder cancer COMPARISONS: November 05, 2013 TECHNIQUE: Multiple contiguous axial CT scans were obtained of the cervical spine without intravenous contrast, with coronal and sagittal multiplanar reformations. FINDINGS: BRAIN: Again noted is a lytic lesion of the right parietal skull. There is likely a small lesion of the left parietal skull CENTRAL CANAL: Evaluation of the central canal is limited on CT technique; however, there is no obvious canalicular mass or epidural hemorrhage. ALIGNMENT: The alignment is normal, without subluxation or dislocation. VERTEBRAL BODIES: There is diffuse osteopenia. There is no displaced fracture. JOINTS: There is osteoarthritis of the uncovertebral and facet joints. MUSCULATURE: Unremarkable INTERVERTEBRAL DISCS: There is diffuse loss of intervertebral disc height. AXIAL IMAGES: On axial images, there is moderate right neural foraminal narrowing at C4-C5, C5-C6, and C6-C7. There is no osseous central canal stenosis. SOFT TISSUES: There is asymmetric enlargement of the right mandibular gland compared to the left. There is a 1.2 cm short axis left level 5B lymph node best seen on axial image 52. There are multiple confluent and enlarged left level 3 and level 4 lymph nodes. OTHER: There is also an osteolytic lesion with periosteal reaction of the body of the mandible on the right. There is a similar lesion of the left scapula IMPRESSION: 1. NO ACUTE OSSEOUS INJURY TO THE CERVICAL SPINE. 2. OSTEOPENIA. 3. DEGENERATIVE DISC DISEASE AND OSTEOARTHRITIS. 4. THERE ARE OSTEOLYTIC LESIONS OF THE SKULL, RIGHT MANDIBLE, AND LEFT SCAPULA IS CONSISTENT WITH METASTATIC DISEASE GIVEN THE HISTORY OF MALIGNANCY. 5. THERE IS ASYMMETRIC ENLARGEMENT OF THE RIGHT MANDIBULAR GLAND COMPARED TO THE LEFT WHICH ALSO MAY INDICATE METASTATIC DISEASE. 6. THERE ARE ENLARGED LEFT LOWER CERVICAL AND SUPRACLAVICULAR LYMPH NODES..
[2016-12-09] MEDS ORDERED: Famotidine IV* 10 MG/ML 2 ML (20 mg) IV SLOW PU SCH (09:00)
[2016-12-09] MEDS: Insulin LISPRO* 1 UNITS UNIT SUBCUT SCH ×4 (09:09→20:28)
[2016-12-09] MEDS ORDERED: Famotidine IV* 10 MG/ML 2 ML (20 mg) ONE (09:21)
[2016-12-09] MEDS: cefTRIAXone VIAL(*) 1,000 MG in NS 0.9% 50 ML* 50 ML IVPB SCH (09:32)
--- NOTE | 2016-12-09 14:27 | PN ---
Progress Note - Progress Note Date of Service: 12/09/16 Note: Follow up palliative care note Met with Son, Manuelito/HCP and Tyree (89 yrs old) both care for her 07/10 . Recently with her me
--- NOTE | 2016-12-09 15:07 | CONS ---
CC: Dr. Kevin Burkett* PALLIATIVE CARE CONSULTATION: DATE OF CONSULT: 12/09/16 REFERRING PHYSICIAN: Linda Hernandez NP. PRIMARY CARE PHYSICIAN: Kevin Burkett MD. HOSPITAL COURSE: This is an 86-year-old female with a past medical history for stage IV urothelial carcinoma with widespread metastatic disease including bone and liver, with kidney primary, who is on current treatment, who presented to the emergency room on the morning of the with fall and altered mental status. Patient lives at home with her , Tyree, and her son, Manuelito, who states over the past 2 days she has become more confused, arguing with her son, becoming more combative about taking medications in the middle of the night and not really understanding why she should not be. She has been complaining that she is hungry, but then refuses to eat, and then last evening the son was awoken by a thump and found her on the floor, trying to get to the restroom, but going in the wrong direction. On arrival to the emergency room, patient was admitted. There was a thought that she could have a urinary tract infection and was started on broad spectrum antibiotics, initially made n.p.o. due to altered mental status. On my encounter, patient is awake, she keeps trying to get out of bed, perseverating over being able to sit up, does not seem to be able to get comfortable, wondering where her and her son are , and asking to eat or drink something. She is complaining of left shoulder pain, abdominal pain. She does say she has some shortness of breath, no chest pain. Otherwise review of the system is limited due to patient's altered mental status. PAST MEDICAL HISTORY: 1. As mentioned, stage IV urothelial metastatic carcinoma, widely metastatic disease, including bone, liver, and kidney; on treatment, followed by Dr. Thomason. 2. History of recurrent pleural effusions with pleural catheter in place. 3. History of hypertension. 4. Diabetes. 5. Hyperlipidemia. 6. Hypothyroidism. 7. History of renal insufficiency. 8. Anemia. 9. History of H. pylori. 10. History of cholecystectomy. 11. Carotid endarterectomy. INPATIENT MEDICATIONS: 1. Tylenol 650 mg p.o. q.6 hours as needed. 2. Famotidine 20 mg IV daily. 3. Lispro sliding scale. 4. Levothyroxine 50 micrograms daily. 5. Normal saline 100 cc an hour. 6. Zofran 4 mg IV q.6 hours as needed. 7. Ceftriaxone 1 g q.24 hours. ALLERGIES: IODINE, anaphylactic shock. FAMILY HISTORY: No family history of cancer or other hematologic issues. SOCIAL HISTORY: Patient lives at home with her , Tyree, and her son, Manuelito; his phone number is [phone]. No history of tobacco, occasional alcohol use, no illicit drug use. I reviewed the MOLST form with her. I do not feel that she has capacity and she states she did not know when asked about her resuscitation if she wanted resuscitation. REVIEW OF SYSTEMS: Limited due to patient's altered mental status. PHYSICAL EXAMINATION: Vitals: Temp 99.1, pulse rate 66, respiratory rate 16, oxygen saturation 97% on 2.5 L, blood pressure 122/87. General: Frail, cachectic elderly female, who appears restless in the bed. HEENT: Head normocephalic. Pupils equal and reactive. Anicteric. Oropharynx: Mucous membranes are dry. Neck: Supple. No lymphadenopathy. No nuchal rigidity. Cardiac: Regular rate and rhythm. Harsh systolic murmur heard throughout. Respiratory: Diminished breath sounds, poor aeration over the right lower base. Abdomen: Soft, diffuse tenderness, no rebound or guarding. Extremities : No clubbing, cyanosis or edema. +1 DPs. Neurologic: Patient is alert and oriented x2, oriented to self and place. No gross focal neurologic deficits. DIAGNOSTIC STUDIES/LAB DATA: White count 9.1, hemoglobin 7.5, hematocrit 23, platelets 465. INR is 1.16. Sodium 130, potassium 5.1, chloride 100, bicarb 29 , creatinine 1.19. Albumin is 2.9. Radiographic Data: Chest x-ray shows hyperinflation, small bilateral pleural effusions. Head CT: No acute intracranial pathology, lytic lesion of the right parietal scalp, likely metastatic disease given the history of malignancy. Cervical spine CT: No acute osseus injury to the cervical spine, osteopenia and degenerative disk disease and osteoarthritis. There are osteolytic lesions of the skull, right mandible and left scapula, is consistent with metastatic disease given history of malignancy, with asymmetric enlargement of the right mandibular gland compared to the left, which also may indicate metastatic disease or enlarged left lower cervical and supraclavicular lymph nodes. ASSESSMENT: This is an 86-year-old female with past medical history of stage IV widely metastatic urothelial carcinoma who presented to the emergency room with worsening mental status and fall. Patient appears very deconditioned and frail. I did speak with Dr. Thomason and he is concerned about her poor performance status and states it is not unreasonable to stop treatment to pursue hospice and possibly palliative radiation for pain control. The patient , I feel, lacks capacity at this time to make any decisions for herself. I did speak with her son who is going to be arriving shortly and I will have a discussion with him regarding goals of care and treatment. If he is interested in palliative radiation, I will follow up with Dr. Laird. I am going to get an ammonia level as she does have an elevated INR. This may be contributing to that. I am also worried about more metastatic disease, intracranial, contributing to her confusion. Patient did pass a nursing bedside swallow. I will allow her to have clears and have Speech do a more official bedside swallow and relayed my recommendations to the hospitalist service and to resume her home medications as indicated, and to follow up regarding what the son and the family would like to do for the patient. Thank you for this consultation. I will follow along with you and follow up on my meeting with the son and family later today. TIME SPENT: Greater than 60 minutes were spent in consultation, more than half that time was spent in direct patient contact. [id number]/CPS #: [id number] MTDD
[2016-12-09] MEDS ORDERED: Acetaminophen TAB* 325 MG PO PRN (16:51)
[2016-12-09] MEDS: Ondansetron INJ* 2 MG/ML VIAL IV PRN (16:59)
[2016-12-09] MEDS: ALPRAZolam TAB* 0.25 MG PO PRN ×2 (17:45→22:13)
[2016-12-09] MEDS: Megestrol TAB* 40 MG PO SCH ×2 (17:45→20:28)
[2016-12-09] MEDS: Atenolol TAB* 50 MG PO SCH (20:25)
[2016-12-09] MEDS: Heparin VIAL(*) 5000 UNITS/ML VIAL (FIVE THOUSAND) SUBCUT SCH (22:14)
[2016-12-10] MEDS: Insulin LISPRO* 1 UNITS UNIT SUBCUT SCH ×7 (01:43→23:12)
[2016-12-10] MEDS: Ondansetron INJ* 2 MG/ML VIAL IV PRN ×2 (04:00→11:21)
[2016-12-10] MEDS: ALPRAZolam TAB* 0.25 MG PO PRN (04:02)
[2016-12-10] MEDS: Levothyroxine TAB* 100 MCG TAB PO SCH (05:05)
[2016-12-10] MEDS: Heparin VIAL(*) 5000 UNITS/ML VIAL (FIVE THOUSAND) SUBCUT SCH ×3 (05:05→21:05)
[2016-12-10 05:36] LABS: BUN/Creatinine Ratio 20.7 (8-20); Calcium 8.4 mg/dL (8.6-10.3); EGFR African American 85.2 (>60); EGFR Non-African American 66.3 (>60); Potassium 4.7 mmol/L (3.5-5.0)
[2016-12-10 05:45] LABS: Hematocrit 25 % (35-47); Hemoglobin 8.1 g/dl (12.0-16.0); Mean Corpuscular HGB Conc 32 g/dl (31-36); Mean Corpuscular Hemoglobin 29 pg (27-31); Mean Corpuscular Volume 91 fL (80-97); Mean Platelet Volume 7 um3 (7.4-10.4); Red Blood Count 2.77 10^6/ul (4.0-5.4); Red Cell Distribution Width 16 % (10.5-15); White Blood Count 10.8 10^3/ul (3.5-10.8)
[2016-12-10] MEDS ORDERED: Levothyroxine INJ* 100 MCG/5 ML VIAL IV SCH (06:00)
[2016-12-10] MEDS: Isosorbide Mononitrate ER TAB* 30 MG PO SCH (09:00)
[2016-12-10] MEDS: Cholecalciferol TAB* 1000 UNITS PO SCH (09:00)
[2016-12-10] MEDS ORDERED: Influenza VAC *QUAD* 2017-18* 0.5 ML SYRINGE IM ONE (09:00)
[2016-12-10] MEDS: Atenolol TAB* 25 MG PO SCH (09:00)
[2016-12-10] MEDS: Aspirin Low Dose CHEW TAB* 81 MG PO SCH (09:00)
[2016-12-10] MEDS: Omeprazole CAP* 20 MG PO SCH (09:01)
[2016-12-10] MEDS: Senna TAB PO SCH (09:01)
[2016-12-10] MEDS: Ascorbic Acid TAB* 500 MG PO SCH (09:01)
[2016-12-10] MEDS: Megestrol TAB* 40 MG PO SCH ×4 (09:01→21:02)
[2016-12-10] MEDS: cefTRIAXone VIAL(*) 1,000 MG in NS 0.9% 50 ML* 50 ML IVPB SCH (09:03)
[2016-12-10] MEDS: FERROUS SULFATE 65 MG PO SCH (10:09)
[2016-12-10] MEDS: Atenolol TAB* 50 MG PO SCH (21:02)
[2016-12-11] MEDS: Insulin LISPRO* 1 UNITS UNIT SUBCUT SCH ×3 (03:43→12:45)
[2016-12-11] MEDS: Heparin VIAL(*) 5000 UNITS/ML VIAL (FIVE THOUSAND) SUBCUT SCH ×2 (04:24→12:45)
[2016-12-11] MEDS: Levothyroxine TAB* 100 MCG TAB PO SCH (04:27)
[2016-12-11] MEDS: ALPRAZolam TAB* 0.25 MG PO PRN (04:28)
[2016-12-11 04:51] VITALS: BP 124/90
[2016-12-11] MEDS: cefTRIAXone VIAL(*) 1,000 MG in NS 0.9% 50 ML* 50 ML IVPB SCH (08:07)
[2016-12-11] MEDS: FERROUS SULFATE 65 MG PO SCH (09:35)
[2016-12-11] MEDS: Ascorbic Acid TAB* 500 MG PO SCH (09:37)
[2016-12-11] MEDS: Omeprazole CAP* 20 MG PO SCH (09:37)
[2016-12-11] MEDS: Isosorbide Mononitrate ER TAB* 30 MG PO SCH (09:37)
[2016-12-11] MEDS: Cholecalciferol TAB* 1000 UNITS PO SCH (09:38)
[2016-12-11] MEDS: Aspirin Low Dose CHEW TAB* 81 MG PO SCH (09:38)
[2016-12-11] MEDS: Megestrol TAB* 40 MG PO SCH ×2 (09:38→12:45)
[2016-12-11] MEDS: Atenolol TAB* 25 MG PO SCH (09:38)
[2016-12-11] MEDS: Senna TAB PO SCH (09:39)
== END 2016-12-11 15:05 | disposition hospice, home (50) | DRG 690 ==
LOC: ED 02:37 → MED 05:09
PROVIDERS: ADMIT Hospitalist; ATTEND Internal Medicine Hematology & Oncology
DX: N39.0 Urinary tract infection, site not specified (principal); C78.7 Secondary malignant neoplasm of liver and intrahepatic bile duct; C79.51 Secondary malignant neoplasm of bone; C64.2 Malignant neoplasm of left kidney, except renal pelvis; E11.9 Type 2 diabetes mellitus without complications; I10 Essential (primary) hypertension; E03.9 Hypothyroidism, unspecified; R41.82 Altered mental status, unspecified; Z91.048 Other nonmedicinal substance allergy status; K21.9 Gastro-esophageal reflux disease without esophagitis; E78.5 Hyperlipidemia, unspecified; I73.9 Peripheral vascular disease, unspecified; Z79.84 Long term (current) use of oral hypoglycemic drugs; Z79.1 Long term (current) use of non-steroidal anti-inflammatories (NSAID); Z79.82 Long term (current) use of aspirin; Z79.899 Other long term (current) drug therapy; Z80.9 Family history of malignant neoplasm, unspecified; W18.30XA Fall on same level, unspecified, initial encounter; Y92.009 Unspecified place in unspecified non-institutional (private) residence as the place of occurrence of the external cause
CPT/HCPCS: 36415; 70450; 71010; 72125; 80048; 80053; 81003; 81015; 82140; 83036; 83605; 84484; 85025; 85610; 85730; 86850; 86900; 86901; 87040; 87086; 93005; A9270-GY; J0696; J1644; J2405

== ENCOUNTER 2016-12-15 14:19 | Inpatient (IN) | payer MEDICARE, BC ==
--- NOTE | 2016-12-15 15:26 | RAD ---
HISTORY: Failure to thrive COMPARISONS: December 09, 2016 VIEWS: 1: frontal portable view of the chest at 3:05 PM FINDINGS: LINES AND TUBES: A right-sided chest port is noted with the tip overlying the cavoatrial junction. CARDIOMEDIASTINAL SILHOUETTE: The cardiomediastinal silhouette is normal for portable technique. PLEURA: There is blunting the costophrenic angles bilaterally, greater on the left than on the right LUNG PARENCHYMA: There is a diffuse reticular pattern with indistinct pulmonary vessels. There is patchy alveolar opacification lung bases bilaterally. ABDOMEN: The upper abdomen is clear. There is no subphrenic gas. BONES AND SOFT TISSUES: Degenerative changes are noted along the spine. IMPRESSION: 1. SMALL BILATERAL PLEURAL EFFUSIONS WITH BIBASILAR ATELECTASIS VERSUS CONSOLIDATION. 2. PULMONARY INTERSTITIAL EDEMA. 3. LINES AND TUBES ABOVE
[2016-12-15 15:54] LABS: Albumin 2.6 g/dL (3.2-5.2); BUN/Creatinine Ratio 24.8 (8-20); Calcium 8.5 mg/dL (8.6-10.3); EGFR African American 64.1 (>60); EGFR Non-African American 49.8 (>60); Globulin 3.6 g/dL (2-4); Potassium 4.5 mmol/L (3.5-5.0); Total Bilirubin 0.3 mg/dL (0.2-1.0); Total Protein 6.2 g/dL (6.4-8.9)
[2016-12-15 16:00] LABS: Hematocrit 23 % (35-47); Hemoglobin 7.3 g/dl (12.0-16.0); Mean Corpuscular HGB Conc 32 g/dl (31-36); Mean Corpuscular Hemoglobin 29 pg (27-31); Mean Corpuscular Volume 91 fL (80-97); Mean Platelet Volume 8 um3 (7.4-10.4); Red Blood Count 2.52 10^6/ul (4.0-5.4); Red Cell Distribution Width 16 % (10.5-15); White Blood Count 10.9 10^3/ul (3.5-10.8)
--- NOTE | 2016-12-15 16:09 | RAD ---
HISTORY: Altered mental status, head injury COMPARISONS: December 09, 2016 TECHNIQUE: Multiple contiguous axial CT scans were obtained of the head without intravenous contrast. FINDINGS: HEMORRHAGE/INFARCT: There is no hemorrhage or acute infarct. MASSES/SHIFT: There is no mass or shift. EXTRA-AXIAL SPACES: There is a 1.2 cm low attenuation right frontoparietal subdural fluid collection. There is a 0.7 cm left parieto-occipital subdural fluid collection. These are new when compared to December 09, 2016 examination. SULCI AND VENTRICLES: The sulci and ventricles are normal in size and position for the patient's stated age. CEREBRUM: There are no focal parenchymal abnormalities. BRAINSTEM: There are no focal parenchymal abnormalities. CEREBELLUM: There are no focal parenchymal abnormalities. VESSELS: The vessels are grossly normal. PARANASAL SINUSES: The paranasal sinuses are clear. ORBITS: The orbits are unremarkable. BONES AND SOFT TISSUE: Again noted is a geographic lytic lesion of the right parietal skull OTHER: None IMPRESSION: SUBACUTE RIGHT FRONTOPARIETAL AND LEFT PARIETAL OCCIPITAL SUBDURAL HEMATOMA, NEW WHEN COMPARED TO 2016. AGAIN NOTED IS A LYTIC LESION OF THE RIGHT PARIETAL SKULL PRELIMINARY FINDINGS WERE DISCUSSED WITH DR. GALLARDO IN THE EMERGENCY DEPARTMENT AT APPROXIMATE 4:05 PM ON DECEMBER 15, 2016.
[2016-12-15 17:05] LABS: Urine Bacteria Absent (Absent); Urine Bilirubin Negative (Negative); Urine Glucose Negative (Negative); Urine Nitrite Negative (Negative)
[2016-12-15] MEDS ORDERED: Ondansetron INJ* 2 MG/ML VIAL IV PRN (18:05)
[2016-12-15] MEDS ORDERED: Dextrose 50% Syringe 50 ML* 25 GM/50 ML SYRINGE IV PUSH PRN (18:18)
[2016-12-15] MEDS ORDERED: Zosyn per Pharmacy* NOTE FOLLOW UP SCH (19:00)
[2016-12-15] MEDS: Azithromycin IV(*) 500 MG in NS 0.9% 250 ML* 250 ML IVPB SCH (20:43)
[2016-12-15] MEDS ORDERED: Albuterol/Ipratropium NEB.SOL* Albuterol 2.5 MG/Ipratropium 0.5 MG 3 ML ONE (20:59)
[2016-12-15] MEDS ORDERED: Furosemide IV* 10 MG/ML VIAL (40 MG) IV SLOW PU ONE (21:13)
[2016-12-15] MEDS ORDERED: Furosemide IV* 10 MG/ML VIAL (40 MG) ONE (21:14)
--- NOTE | 2016-12-15 21:27 | RAD ---
HISTORY: Sudden shortness of breath COMPARISONS: December 15, 2016 at 2:05 PM VIEWS: 1: frontal portable view of the chest at 9:03 PM FINDINGS: LINES AND TUBES: There is a right-sided chest tube with the tip overlying the cavoatrial junction. CARDIOMEDIASTINAL SILHOUETTE: The cardiomediastinal silhouette is normal for portable technique. PLEURA: There is blunting of the costophrenic angles bilaterally, greater on the left than on the right. LUNG PARENCHYMA: There has been progressive consolidation of the left lung field diffusely, most pronounced in the left lower lung. There has been improved aeration of the right lung base. ABDOMEN: The upper abdomen is clear. There is no subphrenic gas. BONES AND SOFT TISSUES: No bone or soft tissue abnormalities are noted. IMPRESSION: 1. INTERVAL PROGRESSION OF LEFT LUNG CONSOLIDATION. 2. SMALL BILATERAL PLEURAL EFFUSIONS.
[2016-12-15] MEDS: Atenolol TAB* 50 MG PO SCH (22:12)
[2016-12-16] MEDS: Insulin LISPRO* 1 UNITS UNIT SUBCUT SCH ×4 (00:49→18:35)
[2016-12-16] MEDS: ZOSYN 3.375 GM Q8H per EXTENDED INFUSION IVPB SCH ×8 (00:49→23:42)
[2016-12-16] MEDS ORDERED: oxyCODONE TAB* 5 MG TAB PO ONE (01:40)
--- NOTE | 2016-12-16 02:35 | HP ---
CC: Dr. Burkett; Dr. Thomason * HISTORY AND PHYSICAL: DATE OF ADMISSION: 12/15/16 PRIMARY CARE PROVIDER: Dr. Burkett. PRIMARY ONCOLOGIST: Dr. Thomason. ATTENDING PHYSICIAN WHILE IN THE HOSPITAL: Kaylyn Hernandez MD * (report dictated by Rick Witt NP) CHIEF COMPLAINT: 1. Altered mental status. 2. Weakness. HISTORY OF PRESENT ILLNESS: Ms. Rush is an 86-year-old female patient who has a history of stage IV transitional renal cell carcinoma and has a history of diabetes, CAD, PAD, hyperlipidemia, hypertension, hypothyroidism, GERD, and depression, who last week on 12/08/16 or 12/09/16 sustained a mechanical fall, was brought into the ED. CT imaging done was negative of brain. The patient did have UTI. It was felt that the weakness she was having at that point and the fall were probably related to the UTI, so the patient was treated, she actually improved, went home and she was also signed with hospice. The patient , however, told this hospice that she would like to continue chemo and she is well enough with Dr. Thomason, so at that point hospice had signed off. Unfortunately though in the last few days, the patient has been getting progressively more weak. She has been getting confused. Her speech has been slower. She has been more lethargic, more drowsy that she was not walking, the family had to help care for her more intensely and today they were concerned because she just was not acting herself and they brought her into the hospital for evaluation. There were no reports of chest pain, no reports of abdominal pain, no reports of nausea. No vomiting. No diarrhea. There has been no coughing. There has been no reports of fever and no reports of abdominal pain, but because of the mental status changes, we were asked to evaluate for admission. PAST MEDICAL HISTORY: Significant for: 1. Stage IV transitional cell cancer. 2. Diabetes. 3. CAD. 4. PAD. 5. Hyperlipidemia. 6. Hypertension. 7. Hypothyroidism. 8. GERD. 9. Depression. PAST SURGICAL HISTORY: 1. The patient has had a cataract extraction. 2. Laparoscopic cholecystectomy. 3. Carotid endarterectomy. MEDICATIONS: The home meds according to her discharge just from a few days ago include: 1. Aspirin 81 mg daily. 2. Tylenol 650 mg every 6 hours as needed. 3. Xanax 0.25 mg p.o. t.i.d. as needed. 4. Lactobacillus 1 capsule p.o. daily. 5. Imdur 30 mg p.o. daily. 6. Lasix 20 mg p.o. b.i.d. 7. Lexapro 10 mg p.o. daily. 8. Atenolol 50 mg at bedtime, 25 mg in the morning. 9. Foltanx 1 tablet p.o. daily. 10. Prilosec 20 mg daily. 11. Metformin 500 mg p.o. b.i.d. with meals. 12. Melatonin 3 mg p.o. at bedtime. 13. Synthroid 100 mcg p.o. daily. 14. Senna 1 tablet p.o. daily. 15. Zofran 4 mg p.o. every 6 hours as needed for nausea. ALLERGIES TO MEDICATIONS: Include IODINE. FAMILY HISTORY: The mother's history is unknown. Father had a history of bladder cancer. SOCIAL HISTORY: She does not smoke. She does not drink. Surrogate decision maker is her son. REVIEW OF SYSTEMS: There is no documented fever. There is no ear discharge. There is no rhinorrhea. No sore throat. No thyroid enlargement. Denied having any chest pain. There is no orthopnea. No nocturnal dyspnea. Again, there is no nausea, no vomiting. No dysuria, no frequency. There is no seizure , no loss of consciousness, no pruritus, no skin ulcerations. Review of 14 systems completed, all others negative. PHYSICAL EXAMINATION GENERAL: At this time, Ms. Rush is an 86-year-old female patient. She is chronically ill appearing. She is sitting in the ER stretcher. She does not appear to be in any acute distress. VITAL SIGNS: Blood pressure 132/54, pulse is 77, respirations were 19, O2 sat of 100%, temperature 97.4. HEENT: Head atraumatic except she does have some ecchymosis to the left frontal area from the previous fall according to the family, otherwise atraumatic. Eyes: Sclerae anicteric. Pupils equal and reactive to light. Throat: Oral mucosa appears to be dry. No oropharyngeal erythema. NECK: Supple. LUNGS: Clear to auscultation. No wheezes, rales, or rhonchi. HEART: Heart sounds S1, S2. Regular rate and rhythm. No murmurs, rubs, or gallops. ABDOMEN: Soft, flat, nontender. Bowel sounds present. EXTREMITIES: Pulses were 2+ throughout. She is able to move all 4 extremities with 5/5 strength. NEUROLOGIC: She is awake to herself. She is oriented to herself. She is oriented to place. Confused with time. Dynamo Repairer were equal. Tongue is midline. No facial drooping. She had no gross focal deficits. SKIN: Intact. LABORATORY/DIAGNOSTIC DATA: Labs revealed WBC 10.9, RBC 2.52, hemoglobin 7.3, hematocrit 23, platelet count 405. INR 1.21, PTT 29.0. Sodium 132, potassium 4.5, chloride 102, bicarb 23, BUN 26, creatinine 1.05 which is very near her baseline, glucose 186, lactate 0.8, calcium 8.5. Total bili 0.3, AST 11, ALT 9 , alk phos 203, ammonia 43. Troponin 0. BNP of 488. Albumin of 2.6. She had 3+ blood in her urine, 2+ rbc. She had chest x-ray obtained today, which showed small bilateral pleural effusions with basilar atelectasis versus consolidation. Pulmonary interstitial edema, lines and tubes as above. The brain CT showed subacute right frontoparietal and left parieto-occipital subdural hematoma, new compared to 12/09/16 exam. Again noticed lytic lesion of the right parietal skull. The EKG showed normal sinus rhythm with a PAC. No ST elevation or T-wave inversion, rate of 79. Old medical records reviewed. ASSESSMENT AND PLAN: Ms. Rush is an 86-year-old female patient coming into the ED today with complaints of altered mental status, weakness, and confusion. The hospitalist service was asked to evaluate in consult. She will be admitted under inpatient status for: 1. Subdural hematoma, altered mental status again. We did touch base with on- call Neurosurgery. They felt that the patient was, and in my opinion, not a surgical candidate and it was felt that that these subdurals most likely were not contributing to her mentation. The plan at this point is to go ahead and get neuro checks every hour to make sure it is not worse and place her in the ICU and follow these closely. 2. Question of bilateral consolidation on the x-ray. Again there could be pneumonia here which could certainly be contributing to the altered mental status. She does have a white count, but there has been no reports of respiratory symptoms such as cough or shortness of breath, but because of the recent hospitalizations, I think I am going to put her on Zosyn and azithromycin. I will get sputum culture if she is able and we will check legionella and Strep pneumo antigens and blood cultures. 3. Stage IV renal carcinoma. She can follow with Dr. Thomason at this point, but I do not think she would be a candidate for active chemotherapy. 4. History of coronary artery disease in the setting of this subdural. I am going to hold off on giving her diuretics for the time being. I am going to just continue the beta-art. Obviously I am gong to hold the aspirin and we will continue to monitor. I am going to hold her nitrates as well. 5. Peripheral arterial disease, again holding the aspirin at this point. 6. Hyperlipidemia. She can follow with her primary at this point. 7. Depression. I am going to hold her meds for the time being. 8. Hypothyroidism. Continue her Synthroid. 9. DVT prophylaxis: She will be placed on SCDs. 10. Prognosis of this patient is quite poor. She has stage IV cancer, but now she has small bilateral subdural hematomas and she does have altered mental status. I am sure that this may be certainly contributing to her mentation and also affects her prognosis and makes it much more poor. I had a long discussion with the family about her poor prognosis, that she would not be a surgical candidate should these worsen and I did discuss with them code status at length being that if she were to code that the chances of recovery would be almost 0%. The family though despite this is whishing to honor the patient's wishes, which is she has always said that she wanted to be a full code. I do think that she would benefit again from a palliative consult and office consult which I put in, and Oncology will be seeing the patient tomorrow and they will discuss with them about the prognosis from their standpoint, but for now she is a full code, so I am going to put her in the ICU to follow her closely. 11. Fluids, electrolytes, and nutrition: She is NPO except meds and sips of water. TIME SPENT: Time spent on this admission is 70 minutes, with greater than half the time spent face to face with the patient obtaining my history and physical, the other half the time was spent going over the plan of care with the patient and implementing the plan of care. I did discuss the plan of care my attending , Dr. Hernandez, and she is in agreement. RICK WITT, STAFF AIR DEFENSE OFFICER [id number]/CPS #: [id number] ADAL
[2016-12-16 05:59] LABS: Hematocrit 23 % (35-47); Hemoglobin 7.5 g/dl (12.0-16.0); Mean Corpuscular HGB Conc 33 g/dl (31-36); Mean Corpuscular Hemoglobin 29 pg (27-31); Mean Corpuscular Volume 90 fL (80-97); Mean Platelet Volume 7 um3 (7.4-10.4); Red Blood Count 2.54 10^6/ul (4.0-5.4); Red Cell Distribution Width 17 % (10.5-15); White Blood Count 13.4 10^3/ul (3.5-10.8)
[2016-12-16 06:05] LABS: BUN/Creatinine Ratio 24.5 (8-20); Calcium 8.2 mg/dL (8.6-10.3); EGFR African American 66.2 (>60); EGFR Non-African American 51.5 (>60); Potassium 4.3 mmol/L (3.5-5.0)
[2016-12-16] MEDS: Levothyroxine TAB* 100 MCG TAB PO SCH (08:07)
[2016-12-16] MEDS: Atenolol TAB* 25 MG PO SCH (08:08)
--- NOTE | 2016-12-16 09:32 | CONSULT ---
Consult Consult: Neurosurgery Consult Date of admission: 12/15/16 Date of consult: 12/16/16 Reason for consult: Right sided subdural hematoma HPI: This is an 86 year old female with history of stage IV transitional cell cancer, HTN, CAD, PAD, and hypothyroidism, who presented to the [facility] on with complaint of altered mental status and weakness. She is unable to provide a history of events and therefore history is obtained primarily from previous documentation. On 12/09/16 she had presented to the [facility] after a fall , sustaining injury to the head. Work up at that time with brain CT was negative for a bleed. She was discharged home after being diagnosed with a UTI. In the past couple of days, she has experienced a progressive decline in mental status and functional abilities including ambulation. Her family became concerned and therefore presented with her to the [facility] for evaluation. Past medical history: 1. Transitional cell cancer 2. HTN 3. HLD 4. CAD 5. PAD 6. GERD 7. Hypothyroidism 8. Depression 9. Diabetes Past surgical history: 1. Cholecystectomy 2. Carotid endartarectomy 3. Cataract extraction Medications: 1. ALPRAZolam TAB* [Xanax TAB*] 0.25 mg PO TID PRN 11/05/13 [History Confirmed 12/15/16] 2. Acetaminophen TAB* [Tylenol TAB*] 650 mg PO Q6HR PRN 11/05/13 [History Confirmed 12/15/16] 3. Aspirin Low Dose CHEW TAB* [Aspirin Low Dose TAB*] 81 mg PO DAILY 11/05/13 [ History Confirmed 12/15/16] 4. Atenolol TAB* [Tenormin TAB* 25 MG] 25 mg PO QAM 11/05/13 [History Confirmed 12/15/16] 5. Atenolol TAB* [Tenormin TAB* 50 MG] 50 mg PO BEDTIME 11/05/13 [History Confirmed 12/15/16] 6. Isosorbide Mononitrate ER TAB* [Imdur ER TAB*] 30 mg PO QAM 11/05/13 [ History Confirmed 12/15/16] 7. Levothyroxine TAB* [Synthroid 100 MCG TAB*] 100 mcg PO DAILY 11/05/13 [ History Confirmed 12/15/16] 8. Escitalopram (NF) [Lexapro 5 mg (NF)] 10 mg PO DAILY 08/28/16 [History Confirmed 12/15/16]9 9. Metformin ER (NF) 500 mg PO BID WITH MEALS 08/28/16 [History Confirmed ] 10. Furosemide TAB* [Lasix TAB*] 20 mg PO BID 09/29/16 [History Confirmed ] 11. Senna TAB* [Senokot TAB*] 1 tab PO DAILY 09/29/16 [History Confirmed ] 12. Melatonin (NF) 3 mg PO BEDTIME 10/16/16 [History Confirmed 12/15/16] 13. Omeprazole [Prilosec] 20 mg PO DAILY 10/31/16 [History Confirmed 12/15/16] 14. Ondansetron [Zofran 4 MG Odt] 4 mg PO SEE INSTRUCTIONS PRN 10/31/16 [ History Confirmed 12/15/16] 15. l-Methylfolate W/ Vitamin B6-V [Foltanx 3-35-2 mg] 1 tab PO DAILY 10/31/16 [ History Confirmed 12/15/16] 16. Lactobacillus [Probiotic] 1 cap PO DAILY 12/09/16 [History Confirmed ] Allergies: 1. Iodine Social history: This patient is a nonsmoker and does not consume alcohol. ROS: Unable to obtain secondary to the patient's mental status and not answering questions appropriately. Physical Exam: Vital Signs: Temp Pulse Resp BP Pulse Ox 99.9 F 69 22 136/43 100 12/16/16 12:46 12/16/16 12:30 12/16/16 12:46 12/16/16 12:46 12/16/16 12:30 General: Awakes to voice. Oriented to person, not to place or time. Comfortably laying recumbent in bed. HEENT: Head with left frontal ecchymosis approximately 1.5 inches in diameter. Head is nontender. PERRL, EOMI although difficult to assess secondary to patient 's cooperation with commands. Yellow colored crusting of the lashes bilaterally. Slightly dry mucus membranes. Neck: Neck is supple, symmetric and nontender. CV: Radial pulses 2+ and equal. Difficult to palpate pedal pulses. Lungs: Diminished breath sounds bilaterally. Oxygen in place. Abdomen: Hypoactive bowel sounds. The abdomen is soft, nontender and nondistended. Neuro: Patient awakes to speech although falls back to sleep easily. Speech is whispered, answers questions inappropriately. Able to follow some commands although attention is limited. Generalized weakness in upper and lower extremitites. Difficult to assess for focal deficits secondary to the patient's participation. DTR intact in upper and lower extremities. Hoffmans negative. Left toes flare with babinski. Sensation intact. Imagin. CT brain on 12/15/16 shows right sided subdural hematoma. Assessment and Plan: This is an 86 year old female with history of metastatic cancer who presented to the [facility] with altered mental status and weakness and was found to have a right sided subdural hematoma. No focal deficits appreciated on exam and weakness is generalized. At this time, it is unlikely that the patient would experience significant benefit from neurosurgical intervention and also considering her current medical conditions, surgery is not recommended.
[2016-12-16] MEDS: Acetaminophen TAB* 325 MG PO PRN ×2 (10:09→22:18)
[2016-12-16] MEDS ORDERED: Morphine INJ* 2 MG/ML 1 ML CARPUJECT IV PRN (11:06)
[2016-12-16] MEDS ORDERED: LORazepam INJ* 2 MG/ML 1 ML VIAL IV PUSH PRN (11:06)
--- NOTE | 2016-12-16 11:14 | PN ---
Progress Note - Progress Note Date of Service: 12/16/16 SOAP: Subjective: []Not responsive. Comfortable. Acetaminophen (Tylenol Tab*) 650 mg PO Q4H PRN PRN Reason: FEVER/PAIN Last Admin: 12/16/16 10:09 Dose: 650 mg Atenolol (Tenormin Tab*) 50 mg PO BEDTIME [facility] Last Admin: 12/15/16 22:12 Dose: 50 mg Atenolol (Tenormin Tab*) 25 mg PO QAM [facility] Last Admin: 12/16/16 08:08 Dose: 25 mg Dextrose (D50w Syringe 50 Ml*) 12.5 gm IV PUSH .FOR FS < 60 - SS PRN PRN Reason: FS < 60 Azithromycin 500 mg/ Sodium (Chloride) 250 mls @ 250 mls/hr IVPB Q24H [facility] Last Admin: 12/15/16 20:43 Dose: 250 mls/hr Piperacillin Sod/Tazobactam (Sod 3.375 gm/ Sodium Chloride) 100 mls @ 25 mls/ hr IVPB Q8H [facility] Last Admin: 12/16/16 08:06 Dose: 25 mls/hr Insulin Human Lispro (Humalog*) 0 units SUBCUT Q6HR [facility] PRN Reason: Protocol Last Admin: 12/16/16 06:40 Dose: 1 units Levothyroxine Sodium (Synthroid Tab*) 100 mcg PO DAILY [facility] Last Admin: 12/16/16 08:07 Dose: 100 mcg Lorazepam (Ativan Inj*) 0.5 mg IV PUSH Q4H PRN PRN Reason: ANXIETY Morphine Sulfate (Morphine Inj (Syringe)*) 1 mg IV Q1H PRN PRN Reason: PAIN Ondansetron HCl (Zofran Inj*) 4 mg IV Q6H PRN PRN Reason: NAUSEA Pharmacy Consult (Zosyn Per Pharmacy*) 1 note FOLLOW UP .ZOSYN PER PHARMACY [facility] Objective: [] Vital Signs Temp Pulse Resp BP Pulse Ox 99.9 F 69 25 124/57 97 12/16/16 10:00 12/16/16 10:00 12/16/16 10:00 12/16/16 10:00 12/16/16 10:00 HEENT: pale, agonal breathing. Decreased BS Neuro- opens eyes. Assessment: []86 with progressive metastatic cancer as well as sub-acute subdural hematoma. She is minimally responsive but comfortable on exam. Discussed with family, there are no treatment options for her cancer, any intervention will do more harm then good. Simlarly with the sub dural hematoma she is not a good surgical candidate. She is dying and is comfortable at this time. In my view any intervention is prolonging the dying process. I recommend comfort care only and withdrawal of all other care, DNR and DNI. Family is struggling as her wishes in past have been for full code. Encouraged them to focus on the quality of life she would want to live. Plan: []1. Daughter will come in later and they will meet about comfort care only as well as DNR. Current level of care remains at this time. 2. Hospice consultation. 3. IV morphine and IV ativan prn 4. Ok to drink clears if she would like
[2016-12-16] MEDS ORDERED: Morphine ORAL CONCENTRATE* 5 MG/0.25 ML ORAL.SYRIN SL PRN (12:55)
[2016-12-16] MEDS ORDERED: LORazepam TAB(*) 1 MG PO PRN (12:55)
--- NOTE | 2016-12-16 17:41 | CONS ---
CC: Kevin Burkett MD; Matthew Thomason MD * PALLIATIVE CARE CONSULTATION: DATE OF CONSULT: 12/16/16 PRIMARY CARE PHYSICIAN: Kevin Burkett MD ONCOLOGIST: Matthew Thomason MD HISTORY OF PRESENT ILLNESS: This is an 86-year-old female who was just discharged from the hospital a few days ago for altered mental status, weakness. She has a past medical history of stage IV urothelial metastatic carcinoma, widely metastatic disease, was getting treatment with Dr. Thomason. On last admission a few days ago, the decision was no longer to offer her anymore treatment due to her decline in her performance status and deconditioning and the plan was for her to go home with sign on with hospice and have her and son care for her. According [facility] the [facility], they did go out to see the family to sign her on and the son stated that they wanted to continue pursue treatment and get a second opinion with a different oncologist. The son told me that he was planning to have hospice come out the following week to reassess her. Since her discharge, she initially was doing good from the first day, but then has been sleeping about 20 hours a day, decreased in appetite, limited mobility, and difficulty getting to the bathroom. Her son states that she did have a fall a week ago where she did hit her head but she never complained of any pain, no vomiting. When she was brought to the emergency room on 12/15/16 for weakness and lethargy, a CAT scan was done that showed subacute subdural hematoma. Neurosurgery was notified and they did not feel that she was surgical candidate. There was also question of a consolidation on her x-ray and she was started on broad-spectrum antibiotics and Vapotherm. She has since been weaned off Vapotherm. On my arrival, she is sleeping but she does awake and she does not know where she is. She denies any pain or shortness of breath. Otherwise, review of systems is limited due to the patient's altered mental status. PAST MEDICAL HISTORY: 1. Stage IV urothelial metastatic carcinoma, widely metastatic disease including bone, liver, and kidneys, followed by Dr. Thomason. 2. History of recurrent pleural effusion, with PleurX catheter in place. 3. Hypertension. 4. Diabetes. 5. Hyperlipidemia. 6. Hypothyroidism. 7. History of renal insufficiency. 8. Anemia. 9. History of H. pylori. 10. History of cholecystectomy. 11. History of carotid endarterectomy. MEDICATIONS: Inpatient medications: 1. Acetaminophen 650 mg every 4 hours as needed. 2. Atenolol 50 mg p.o. at bedtime. 3. Atenolol 25 mg in the morning. 4. Lispro sliding scale. 5. Ativan 0.5 mg IV q.4 hours as needed. 6. Levothyroxine 100 mcg p.o. daily. 7. Morphine 1 mg IV q.1 hour as needed. 8. Zofran 4 mg IV q.6 hours as needed. 9. Zosyn 3.375 g every 8 hours. 10. Azithromycin 500 mg q.24 hours. ALLERGIES: IODINE anaphylaxis. FAMILY HISTORY: No history of malignancies. SOCIAL HISTORY: The patient was living at home with her , Erwin and her son, Wil, who are caring for her 24x7. Her son, Wil, is her healthcare proxy. No history of tobacco, alcohol, or illicit drug use. She was a full code on admission. We discussed MOLST form again and the decision was made to be DNR/DNI with comfort measures only. No further rehospitalization. REVIEW OF SYSTEMS: Limited due to the patient's altered mental status. PHYSICAL EXAM: Vitals: Temp 99.9, pulse rate 66, respiratory rate 15, oxygen saturation 100% on 10 L, and blood pressure 104/43. General: Ill-appearing, frail, cachetic female, in no acute distress. Resting comfortably. HEENT: Head: Normocephalic. Pupils are pinpoint and sluggish, anicteric. Oropharynx: Mucous membranes dry. Neck is supple. Cardiac: Regular rate and rhythm. Soft, systolic murmur heard throughout. Respiratory: Diminished breath sounds. No wheezing, rhonchi, or rales. Abdomen is soft, nontender, nondistended. Extremities: No clubbing, cyanosis, or edema. +1 DPs. Neurologic: The patient is alert and oriented x1, oriented to person only. Unable to get her to follow any commands with limited extremity movement. DIAGNOSTIC STUDIES/LAB DATA: hemoglobin 7.5, hematocrit 23, platelets 435. INR 1.21. Sodium 134, potassium 4.3, chloride 101, bicarb 22, BUN 25, creatinine 1.02. Radiographic data: Head CT, subacute right frontoparietal and left parieto- occipital subdural hematoma new when compared to 12/09/16, again noticed a lytic lesion of the right parietal skull. ASSESSMENT AND PLAN: This is an 86-year-old female with widely metastatic stage IV urothelial malignancy, not on treatment, who has been cared for at home by her son and . She presents again with worsening mental status, weakness, and generalized decline and was found to have a subacute subdural hematoma, which likely occurred a week ago when she fell on 12/09/16. I spoke with Wil and Tyree, the son and , at length regarding disposition and they feel that with her decline in her mobility and her mental status, that they can no longer care for her at home and feel that the hospice residence is the most appropriate place for her. They have been also looking into [facility] as well. I did put out a call to [facility] for bed availability and I am waiting to hear back from them. If that is not an option, I would pursue detention placement with hospice in place. I suspect her life expectancy is less than a month with her significant decline over the past few weeks. I did start her on oral morphine and Ativan as needed for air hunger and agitation in anticipation for transfer to hospice and as mentioned, I updated her MOLST form for DNR/DNI comfort measures. Thank you for this consultation. I will follow along with you. PATIENT TIME: Greater than 90 minutes was spent doing this consultation, more than half the time spent in direct patient contact. [id number]/[facility] #: [id number] ADAL
[2016-12-16] MEDS: Azithromycin IV(*) 500 MG in NS 0.9% 250 ML* 250 ML IVPB SCH (21:46)
[2016-12-16] MEDS: Atenolol TAB* 50 MG PO SCH (22:12)
[2016-12-17 08:05] VITALS: BP 138/50
[2016-12-17] MEDS: Insulin LISPRO* 1 UNITS UNIT SUBCUT SCH ×2 (08:51→11:59)
[2016-12-17] MEDS: ZOSYN 3.375 GM Q8H per EXTENDED INFUSION IVPB SCH ×2 (09:11)
[2016-12-17] MEDS: Levothyroxine TAB* 100 MCG TAB PO SCH (09:11)
[2016-12-17] MEDS: Atenolol TAB* 25 MG PO SCH (09:12)
== END 2016-12-17 11:45 | disposition hospice, inpatient (51) | DRG 86 ==
LOC: ED 14:19 → ICU 18:01 → MED 12-16 20:25
PROVIDERS: ADMIT Internal Medicine; ATTEND Internal Medicine Hematology & Oncology
DX: S06.5X0A Traumatic subdural hemorrhage without loss of consciousness, initial encounter (principal); J90 Pleural effusion, not elsewhere classified; C78.7 Secondary malignant neoplasm of liver and intrahepatic bile duct; C79.51 Secondary malignant neoplasm of bone; C64.9 Malignant neoplasm of unspecified kidney, except renal pelvis; I11.9 Hypertensive heart disease without heart failure; E11.9 Type 2 diabetes mellitus without complications; D64.9 Anemia, unspecified; F32.9 Major depressive disorder, single episode, unspecified; I25.10 Atherosclerotic heart disease of native coronary artery without angina pectoris; I73.9 Peripheral vascular disease, unspecified; E78.5 Hyperlipidemia, unspecified; E03.9 Hypothyroidism, unspecified; K21.9 Gastro-esophageal reflux disease without esophagitis; Z79.84 Long term (current) use of oral hypoglycemic drugs; Z79.1 Long term (current) use of non-steroidal anti-inflammatories (NSAID); Z79.82 Long term (current) use of aspirin; Z79.899 Other long term (current) drug therapy; Z91.048 Other nonmedicinal substance allergy status; Z80.52 Family history of malignant neoplasm of bladder; Z66 Do not resuscitate; W18.30XA Fall on same level, unspecified, initial encounter; Y92.009 Unspecified place in unspecified non-institutional (private) residence as the place of occurrence of the external cause
CPT/HCPCS: 36415; 70450; 71010; 80048; 80053; 81003; 81015; 82140; 83605; 83880; 84484; 85025; 85610; 85730; 87040; 87070; 87205; 87502; 87641; 87899; 93005; 94640; 94760; 99232; A9270-GY; J0456; J1642; J1940; J2543